=== PATIENT | male | born 1935 | race Caucasian/White ===

== ENCOUNTER 2022-10-22 08:27 | Emergency (ER) | payer MEDICARE, OTHER, SELFPAY ==
[2022-10-22] VITALS (16 sets, daily range): BP systolic 123–142; BP diastolic 84–91; PULSE 66–120; RESP 16–27; TEMP 36.2; O2SAT 87–95; BMI 23.6
--- NOTE | 2022-10-22 09:07 | XR_ITS ---
[address] [address] Patient Name: TOBIN WONG MRN: [id number] date: 1935 Sex: M Assigned Patient Location: ED.MAIN Current Patient Location: ED.MAIN Accession/Order Number: [id number] Exam Date: 10/22/2022 09:28 Report Date: 10/22/2022 09:42 At the request of: THADDEUS PETERSEN Procedure: XR chest 1V Exam: Radiographs: XR chest 1V Reason for exam: Chest pain Comparison: Chest x-ray dated 02/09/2022 IMPRESSION: Atelectasis and/or infiltrate in the left lower lung. Small left pleural effusion. Nodular opacities in the right lower lung. Recommend follow-up chest CT after treatment to exclude underlying malignancy. Pulmonary venous hypertension. Right chest wall surgical clips. Remainder unremarkable. Electronically authenticated by: JEFFERSON AGUIRRE Date: 10/22/2022 09:42
--- NOTE | 2022-10-22 09:07 | ECG_ITS ---
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
--- NOTE | 2022-10-22 09:12 | ED.GENADUL1 ---
HPI - General Adult General Chief complaint: Arrhythmia/Palpitations Stated complaint: tahycardia Time Seen by Provider: 10/22/22 09:06 Source: patient and family Mode of arrival: walk-in Limitations: no limitations Related Data Home Medications Medication Instructions Recorded Confirmed apixaban 2.5 mg tablet (Eliquis) 2.5 mg PO Q12H 10/22/22 10/22/22 aspirin 81 mg capsule 81 mg PO QDAY 10/22/22 10/22/22 ferrous sulfate 325 mg (65 mg 325 mg PO QDAY 10/22/22 10/22/22 iron) tablet (FeroSul) folic acid 1 mg tablet 1 mg PO .COMPLEX 10/22/22 10/22/22 hydralazine 50 mg tablet 50 mg PO Q12H 10/22/22 10/22/22 lisinopril 40 mg tablet 40 mg PO QDAY 10/22/22 10/22/22 methotrexate sodium 2.5 mg tablet 10 mg PO .tuesday10/22/22 10/22/22 multivitamin (Daily Multi-Vitamin 1 tab PO QAM 10/22/22 10/22/22 tablet) Allergies Allergy/AdvReac Type Severity Reaction Status Date / Time Sulfa (Sulfonamide Allergy Unknown Verified 10/22/22 09:32 Antibiotics) BACTRIM Allergy Unknown Uncoded 10/22/22 09:31 [facility] Medical History (Updated 10/22/22 @ 11:10 by Florentin Edmonds MD) Exam Constitutional: Vital Signs, click to edit/add: Vital Signs - 24 hr 10/22/22 08:41 10/22/22 08:58 10/22/22 08:39 Temperature 97.1 F L Pulse Rate 120 H Pulse Rate [Monito r] Respiratory Rate 21 27 H Blood Pressure Blood Pressure [Le ft Arm] 126/90 H Pulse Oximetry 92 L 94 L Oxygen Delivery Me thod Room Air Room Air 10/22/22 08:40 10/22/22 08:40 10/22/22 08:50 Temperature Pulse Rate 118 H 118 H 98 H Pulse Rate [Monito r] Respiratory Rate 22 23 24 Blood Pressure 126/90 H 134/91 H Blood Pressure [Le ft Arm] Pulse Oximetry 93 L 94 L 95 Oxygen Delivery Me thod 10/22/22 09:01 10/22/22 09:03 10/22/22 08:50 Temperature Pulse Rate 110 H Pulse Rate [Monito r] 97 H Respiratory Rate 17 19 Blood Pressure 134/91 H Blood Pressure [Le ft Arm] Pulse Oximetry 94 L 94 L Oxygen Delivery Me thod Room Air 10/22/22 09:00 10/22/22 09:30 10/22/22 10:03 Temperature Pulse Rate 97 H 73 76 Pulse Rate [Monito r] Respiratory Rate 21 16 22 Blood Pressure 132/88 H 142/84 H Blood Pressure [Le ft Arm] Pulse Oximetry 93 L 92 L 88 L Oxygen Delivery Me thod 10/22/22 10:10 10/22/22 10:20 10/22/22 10:30 Temperature Pulse Rate 80 78 73 Pulse Rate [Monito r] Respiratory Rate 16 18 17 Blood Pressure 123/87 H Blood Pressure [Le ft Arm] Pulse Oximetry 88 L 90 L 89 L Oxygen Delivery Me thod 10/22/22 10:30 Temperature Pulse Rate 75 Pulse Rate [Monito r] Respiratory Rate 17 Blood Pressure Blood Pressure [Le ft Arm] Pulse Oximetry 87 L Oxygen Delivery Me thod Course Vital Signs Vital signs: Vital Signs Pulse Rate 120 H 10/22/22 08:39 Respiratory Rate 27 H 10/22/22 08:39 Temperature 97.1 F L 10/22/22 08:41 Pulse Rate 75 10/22/22 10:30 Respiratory Rate 17 10/22/22 10:30 Blood Pressure 123/87 H 10/22/22 10:30 Pulse Oximetry 87 L 10/22/22 10:30 Oxygen Delivery Method Room Air 10/22/22 09:01 Medical Decision Making [facility] Narrative Medical decision making narrative: patient chest x-ray has right lower lung nodules noted. Patient was given a copy of his x-ray report and is aware to follow-up with his PCP for further imaging. Patient has a history of lymphoma, they're currently seeing Dr. Manuel for oncology for a lymphoma workup. Patient's be naturally peptide is elevated, patient's lungs are crystal clear. He has no rales, no crackles. Patient's heart rate has improved with IV fluids and the diltiazem tablet that he took this morning. Patient will follow-up with PCP as needed. Patient will go down to the [facility] specialty clinic to make an appointment with Dr. Chako with cardiology because they have not heard from their office yet for an appointment time. Patient's lab work shows no other acute abnormalities. Patient will follow-up with PCP or return. Patient was also instructed that if his heart rate is greater than 120 for more than 30 to the 60 minutes, take a extra diltiazem tablet this afternoon or evening. Patient should not take more than 2 tablets and one day. If he is continuing to take 2 tablets, he should discuss this with Dr. zamudio and his library clerical assistant. Patient and his were instructed after he takes his tablet, and the heart rate is persistent over 120, to return to the Emergency Room. Lab Data Lab results reviewed: Yes I reviewed the patient's lab results Labs: Lab Results 10/22/22 Range/Units 08:54 WBC 7.8 (4.0-11.0) 10^3/uL RBC 3.44 L (4.70-6.10) 10^6/uL Hgb 11.0 L (14.0-18.0) g/dL Hct 32.5 L (42.0-54.0) % MCV 94.5 H (80.0-94.0) fL MCH 32.0 (25.9-34.0) pg MCHC 33.8 (29.9-35.2) g/dL RDW 17.3 H (11.0-15.0) % Plt Count 227 (150-450) 10^3/uL MPV 9.6 (9.5-13.5) fL Seg Neuts % (Manual) 81.0 Band Neutrophils % 2.0 (0-5) % Lymphocytes % (Manual) 12.0 L (20.5-60.0) % Monocytes % (Manual) 5.0 (1.7-12.0) % Neutrophils # (Manual) 6.31 (1.4-6.5) 10^3/uL Band Neutrophils # 0.2 (0.0-0.3) 10^3/uL Lymphocytes # (Manual) 0.93 L (1.20-3.80) 10^3/uL Monocytes # (Manual) 0.39 (0.30-0.80) 10^3/uL Nucleated RBCs 0 Sodium 137 (136-145) mmol/L Potassium 3.6 (3.5-5.1) mmol/L Chloride 102 (98-107) mmol/L Carbon Dioxide 27.2 (21.0-32.0) mmol/L Anion Gap 11.4 BUN 15.0 (7.0-18.0) mg/dL Creatinine 1.04 (0.70-1.30) mg/dL Est GFR ( Amer) >60 (>=60) Est GFR (Non-Af Amer) >60 (>=60) BUN/Creatinine Ratio 14.4 Glucose 143 H (74-106) mg/dL Calcium 8.1 L (8.5-10.1) mg/dL Total Bilirubin 0.7 (0.2-1.0) mg/dL AST 17 (15-37) U/L ALT 17 (16-63) U/L Troponin I High Sens 21.3 (4.0-76.1) pg/mL NT-Pro-B Natriuret Pep 2849.0 H* (<=1800.0) pg/mL Total Protein 6.7 (6.4-8.2) g/dL Albumin 3.0 L (3.4-5.0) g/dL Globulin 3.7 g/dL Albumin/Globulin Ratio 0.8 Lipase 36.0 L (73.0-393.0) U/L Imaging Data chest x-ray shows no acute cardiopulmonary disease, no infiltrate, no effusion. Patient does have a right lower lung nodules, see official report.: Attestation: I have reviewed the pertinent imaging results. ECG Data Attestation: I personally reviewed and interpreted this ECG as follows: Interpretation: EKG interpretation. Irregular irregular rhythm at 100 beats a minute. Normal axis deviation. No acute ST elevation, no acute ectopy. QTC of 381. Discharge Plan Discharge Chief Complaint: Arrhythmia/Palpitations Clinical Impression: Palpitations, Atrial fibrillation Patient Disposition: Home, Self-Care Prescriptions / Home Meds: No Action Eliquis 2.5 mg tablet 2.5 mg PO Q12H ferrous sulfate [FeroSul] 325 mg (65 mg iron) tablet 325 mg PO QDAY folic acid 1 mg tablet 1 mg PO .COMPLEX Rx Instructions: 1 mg orally 6 days per week. does not takeon day of methotrexate; hydralazine 50 mg tablet 50 mg PO Q12H lisinopril 40 mg tablet 40 mg PO QDAY methotrexate sodium 2.5 mg tablet 10 mg PO .tuesday multivitamin [Daily Multi-Vitamin] Tablet 1 tab PO QAM aspirin 81 mg capsule 81 mg PO QDAY Additional Instructions: If her heart rate is greater than 120 for 30?60 minutes, and he may take one extra diltiazem tablet in the afternoon or evening. A few heart rate does not improve to less than 120 after 30?60 minutes, return to the Emergency Room for reevaluation. Do not take more than one extra tablet a day, continue taking her one tablet in the morning as prescribed. Stand Alone Forms: Portal Instructions Referrals: Jeffrey Zamudio MD [Primary Care Provider] - 1 week
[2022-10-22] MEDS: ACETAMINOPHEN 500 MG TABLET 1000 MG PO (09:39)
[2022-10-22] MEDS: 0.9 % SODIUM CHLORIDE 1,000 ML 1000 ML IV (09:40)
[2022-10-22] MEDS: ONDANSETRON PF 4 MG/2 ML VIAL IV (09:41)
[2022-10-22 09:52] LABS: Alanine Aminotransferase 17 U/L (16-63); Albumin Globulin Ratio 0.8; Alkaline Phosphatase 78 U/L (46-116); Anion Gap 11.4; Aspartate Amino Transferase 17 U/L (15-37); BUN Creatinine Ratio 14.4; Bilirubin Total 0.7 mg/dL (0.2-1.0); Calcium 8.1 mg/dL (8.5-10.1); Carbon Dioxide 27.2 mmol/L (21.0-32.0); Chloride 102 mmol/L (98-107); Estimated GFR (African America >60 (>=60); Estimated GFR (Non-African Ame >60 (>=60); Globulin 3.7 g/dL; Glucose 143 mg/dL (74-106); Potassium 3.6 mmol/L (3.5-5.1); Sodium 137 mmol/L (136-145); Total Protein 6.7 g/dL (6.4-8.2); Troponin I High Sensitivity 21.3 pg/mL (4.0-76.1)
[2022-10-22 10:11] LABS: Hematocrit 32.5 % (42.0-54.0); Mean Corpuscular HGB Conc 33.8 g/dL (29.9-35.2); Mean Corpuscular Volume 94.5 fL (80.0-94.0); Mean Platelet Volume 9.6 fL (9.5-13.5); Nucleated Red Blood Cells 0; Platelet Count 227 10^3/uL (150-450); Red Blood Count 3.44 10^6/uL (4.70-6.10); Red Cell Distribution Width 17.3 % (11.0-15.0); White Blood Count 7.8 10^3/uL (4.0-11.0)
[2022-10-22 10:43] LABS: Segmented Neut Absolute Manual 6.31 10^3/uL (1.4-6.5)
[2022-10-22 10:44] LABS: Band Neutrophils Absolute 0.2 10^3/uL (0.0-0.3); Lymphocytes Absolute Manual 0.93 10^3/uL (1.20-3.80); Monocytes Absolute Manual 0.39 10^3/uL (0.30-0.80)
--- NOTE | 2022-11-01 16:04 | MISC_ITS ---
CONSULTATION DATE: ??11/01/2022 CHIEF COMPLAINT:? Shortness of breath/dyspnea. HISTORY OF PRESENT ILLNESS:? Mr. Granados is a 87-year-old male with a past medical history including atrial fibrillation, hypertension, previous tobacco abuse, mantle cell lymphoma and metastatic melanoma. He presented to [facility] with complaints of worsening dyspnea. He was noted to be atrial fibrillation with right ventricular response, in addition to decompensated heart failure.? On admission, chest x-ray was noted to have a left lower lobe air space disease and scattered bilateral axilla densities, in addition to mild bilateral pleural effusions.? Cardiology was asked to evaluate patient by Dr. Kwong.? Today, patient states that he feels significantly improved.? He continues to be in atrial fibrillation with right ventricular response, although his rates are significantly improved.? He is currently on a Bumex drip, and he has diuresed well.? He does not appear to be fluid overloaded on examination.? CARDIOLOGY REVIEW OF SYSTEMS:? Cardiac:? Patient denies any chest pain or shortness of breath at the present time.? He denies any lower extremity edema, orthopnea, paroxysmal nocturnal dyspnea. Respiratory:? Positive for improved shortness of breath. Musculoskeletal:? Negative. Gastrointestinal:? Negative. Neurological:? Negative. All other review of systems were reviewed and are negative. PAST MEDICAL HISTORY:? 1.? Mantle cell lymphoma. 2.? Metastatic melanoma. 3.? Atrial fibrillation. 4.? Hypertension. 5.? Noted neoplasm of bladder. 6.? Tubulovillous adenoma of the colon. PAST SURGICAL HISTORY:? 1.? Appendectomy. 2.? Rotator cuff repair. 3.? TURP. 4.? Cystoscopy with transurethral prostatectomy. FAMILY HISTORY:? Noncontributory. ALLERGIES:? 1.? Bactrim. 2.? Amoxicillin. HOME MEDICATIONS:? 1.? Aspirin 81 mg daily. 2.? Eliquis 2.5 mg b.i.d. 3.? Ferrous sulfate 325 mg b.i.d. 4.? Folic acid. 5.? Hydralazine 50 mg b.i.d. 6.? Lisinopril 40 mg daily. 7.? Methotrexate sodium 2.5 mg as directed.? VITAL SIGNS:? Reviewed. PHYSICAL EXAMINATION: General:? Alert, oriented, no acute distress.? Patient is hard of hearing. Head:? Atraumatic, normocephalic. Eyes: PERRLA.? Extraocular movements intact. Neck:? Trachea midline.? No JVD. Cardiac:? S1, S2 present.? Irregularly irregular rate and rhythm.? No rubs, gallops or murmurs. Respiratory:? Diffuse crackles in bilateral lung bases. Abdomen:? Soft, non-tender, non-distended.? Extremities:? No lower extremity edema. Neuro:? No gross neurological deficits. Psych:? Appropriate mood, affect, judgment. DIAGNOSTIC TEST:? Previous echo from 10/08/2022: Conclusion: 1.? EF is mildly reduced, 45-50%. 2.? Severe bi-atrial enlargement. 3.? The right ventricle is normal systolic function. 4.? Grade 2, moderate diastolic dysfunction. 5.? Mild tricuspid regurgitation. 6.? Mildly elevated right sided pressure. 7.? Mild mitral regurgitation. ASSESSMENT/PLAN: 1.? Atrial fibrillation with right ventricular response. 2.? Heart failure with reduced ejection fraction. 3.? Pneumonia. PLAN:? 1.? Patient currently on diltiazem drip.? Would recommend weaning diltiazem and folding in oral beta wesley.? Consider starting metoprolol tartrate 25 mg b.i.d., as tolerated.? Would recommend transitioning to metoprolol succinate prior to discharge given LV dysfunction. 2.? Would recommend repeating echocardiogram to assess LV function, wall motion. 3.? Patient was started by his PCP on apixaban 2.5 mg b.i.d.? Per the limited records available to me, I do not see an indication for Eliquis 2.5 mg b.i.d., but rather Eliquis 5 mg b.i.d.? If patient does not have any significant kidney dysfunction, and if his weight is not less than 60 kg, and if there are no contraindications to bleeding, would recommend increasing dose to 5 mg b.i.d. for stroke prophylaxis.? 4.? Continue treatment of pneumonia, as this is likely underlying precipitant.? 5.? Consider outpatient ischemic evaluation once acute illness resolves.? 6.? Patient will be scheduled for outpatient Cardiology follow up after discharge. 7.? Would recommend transitioning from Bumex drip to p.o. diuretic after gauging patient?s daily diuretic requirement. 8.? If at any point patient becomes unstable, or if there is any reservation or hesitation to continue treatment at [facility], please feel free to transfer patient to [facility] for higher level care and any invasive testing that might be warranted.? Please note:? Due to new EMR, patient?s complete medical record is not available to me.? This note and assessment was performed based on minimal medical records provided to me. [facility]
== END 2022-10-22 11:24 | disposition home or self-care (01) ==
PROVIDERS: Emergency Provider Emergency Medicine; PCP Family Medicine
DX: R00.2 Palpitations (principal); I49.9 Cardiac arrhythmia, unspecified; Z79.82 Long term (current) use of aspirin; R91.8 Other nonspecific abnormal finding of lung field; C85.90 Non-Hodgkin lymphoma, unspecified, unspecified site; Z79.01 Long term (current) use of anticoagulants
CPT/HCPCS: 36415; 71045; 80053; 83690; 83880; 84484; 85007; 85025; 93005; 96374; 99285

== ENCOUNTER 2022-10-31 09:07 | Inpatient (IN) | payer MEDICARE, OTHER, SELFPAY ==
[2022-10-31] VITALS (57 sets, daily range): BP systolic 98–148; BP diastolic 71–102; PULSE 79–148; RESP 17–42; TEMP 36.2–36.5; O2SAT 85–95; BMI 23.7; BMI 24.8
--- NOTE | 2022-10-31 09:21 | ECG_ITS ---
The [facility] Test Date: 2022-10-31 Pat Name: Arun Granados Department: Room: - Gender: Male Last Sawyer: : 1935 Requested By: BATSHEVA MACIAS Order Number: [id number] Reading MD: BATSHEVA MACIAS Measurements Intervals [place] Rate: 145 P: -[id number] TN: -[id number] QRS: -21 QRSD: 84 T: 123 QT: 298 QTc: 382 Interpretive Statements 57840 Atrial fibrillation with rapid ventricular response 7202 Moderate left axis deviation 7500 Abnormal QRS-T angle 9140 abnormal rhythm ECG Compared to ECG 10/22/2022 08:52:42 Left-axis deviation now present ST (T wave) deviation no longer present Electronically Signed On 11-01-2022 6:23:05 EDT by BATSHEVA MACIAS
--- NOTE | 2022-10-31 09:21 | ED_ITS ---
HPI - SOB/Dyspnea General Chief Complaint: Shortness of Breath/Dyspnea Stated Complaint: SHORTNESS OF BREATH Time Seen by Provider: 10/31/22 09:21 History of Present Illness HPI Narrative: pt presents to the ed co dyspnea. His states at home he checked his oxygen in the last 3 days has been running between 90 and 89 but today it was lower than that so he came in for evaluation. He denies any fever, chills, or cough. Denies any runny nose, or sore throat. Has no previous history of lung disease. Does not wear oxygen at home. Has a history of atrial fibrillation. He states he is taking Cardizem. He has not seen a service dog trainer yet has an appointment for next week. Denies any history of congestive heart failure. Related Data Home Medications Medication Instructions Recorded Confirmed apixaban 2.5 mg tablet (Eliquis) 2.5 mg PO Q12H afib 10/22/22 10/31/22 aspirin 81 mg capsule 81 mg PO QDAY 10/22/22 10/31/22 ferrous sulfate 325 mg (65 mg 325 mg PO BID 10/22/22 10/31/22 iron) tablet (FeroSul) folic acid 1 mg tablet 1 mg PO .6 days week 10/22/22 10/31/22 hydralazine 50 mg tablet 50 mg PO Q12H 10/22/22 10/31/22 lisinopril 40 mg tablet 40 mg PO .evening 10/22/22 10/31/22 methotrexate sodium 2.5 mg tablet 10 mg PO .tuesday10/22/22 10/31/22 multivitamin (Daily Multi-Vitamin 1 tab PO QAM 10/22/22 10/31/22 tablet) Allergies Allergy/AdvReac Type Severity Reaction Status Date / Time Sulfa (Sulfonamide Allergy Unknown Verified 10/31/22 09:17 Antibiotics) BACTRIM Allergy Unknown Uncoded 10/31/22 09:17 Review of Systems ROS Status of ROS 10 or more systems reviewed and unremarkable except as noted in history and below [facility] Medical History (Updated 10/31/22 @ 11:34 by Cathy Stacy MD) Social History Smoking status: Former smoker Exam Narrative Exam Narrative: Nurses notes and vital signs reviewed and patient is not hypoxic. General: Nontoxic, Elderly, chronically ill, nontoxic and in no apparent distress. Skin: Warm, dry, no pallor noted. No Rash Head: Normocephalic, atraumatic. Neck: Supple, non-tender. Eye: Pupils are equal, round and EOMI. No scleral icterus. Ears, Nose, Mouth, and Throat: [place], TM clear, no posterior oropharynx erythema or nasal mucosal hypertrophy, uvula is mid-line Oral mucosa is moist Cardiovascular: Irregularly, irregular tachycardia without murmur, gallop or rub. Respiratory: No accessory muscle use or respiratory distress. Lungs diminished at bilateral bases. Chest Wall: no tenderness Back: No midline thoracic or lumbar vertebral tenderness. No CVA tenderness Musculoskeletal: normal ROM, no calf or popliteal tenderness, +2 lower extremity edema/swelling GI: Abdomen is soft, non-distended. Normal bowel sounds. No masses appreciated. No tenderness to palpation. No rebound, guarding, or rigidity noted. Neurological: A&O x4. No cranial nerve dysfunction observed. No truncal ataxia. Moves all extremities. Sensation intact. Psychiatric: Cooperative and interactive. Normal mood and affect. Constitutional Vital Signs - 24 hr 10/31/22 09:13 10/31/22 09:23 10/31/22 09:18 Temperature 97.7 F Pulse Rate 148 H Pulse Rate [Monitor] 80 Respiratory Rate 24 23 Blood Pressure Blood Pressure [Left Arm] 132/102 H Pulse Oximetry 89 L 89 L Oxygen Delivery Method Room Air Nasal Cannula Nasal Cannula Oxygen Delivery Flow Rate 3 10/31/22 09:20 10/31/22 09:30 10/31/22 09:34 Temperature Pulse Rate 133 H 124 H 126 H Pulse Rate [Monitor] Respiratory Rate 21 23 28 H Blood Pressure Blood Pressure [Left Arm] Pulse Oximetry 93 L 93 L 95 Oxygen Delivery Method Oxygen Delivery Flow Rate 10/31/22 09:35 10/31/22 09:46 10/31/22 10:01 Temperature Pulse Rate 126 H 122 H 121 H Pulse Rate [Monitor] Respiratory Rate 25 H 27 H 20 Blood Pressure 148/79 H 98/74 103/83 H Blood Pressure [Left Arm] Pulse Oximetry 93 L 93 L 94 L Oxygen Delivery Method Oxygen Delivery Flow Rate 10/31/22 10:15 10/31/22 10:31 10/31/22 10:45 Temperature Pulse Rate 90 86 93 H Pulse Rate [Monitor] Respiratory Rate 24 21 20 Blood Pressure 118/96 H 112/71 129/78 H Blood Pressure [Left Arm] Pulse Oximetry 91 L 92 L 93 L Oxygen Delivery Method Oxygen Delivery Flow Rate 10/31/22 11:01 10/31/22 11:10 10/31/22 11:15 Temperature Pulse Rate 92 H 101 H 102 H Pulse Rate [Monitor] Respiratory Rate 20 24 24 Blood Pressure Blood Pressure [Left Arm] Pulse Oximetry 92 L 92 L 92 L Oxygen Delivery Method Oxygen Delivery Flow Rate 10/31/22 11:16 10/31/22 11:16 10/31/22 11:30 Temperature Pulse Rate 85 79 80 Pulse Rate [Monitor] Respiratory Rate 18 22 18 Blood Pressure 115/80 H 115/80 H 126/79 H Blood Pressure [Left Arm] Pulse Oximetry 92 L 92 L 93 L Oxygen Delivery Method Oxygen Delivery Flow Rate 10/31/22 11:46 Temperature Pulse Rate 92 H Pulse Rate [Monitor] Respiratory Rate 20 Blood Pressure 130/84 H Blood Pressure [Left Arm] Pulse Oximetry 92 L Oxygen Delivery Method Oxygen Delivery Flow Rate Course Vital Signs Vital signs: Vital Signs Temperature 97.7 F 10/31/22 09:13 Pulse Rate 80 10/31/22 09:13 Respiratory Rate 24 10/31/22 09:13 Blood Pressure 132/102 H 10/31/22 09:13 Pulse Oximetry 89 L 10/31/22 09:13 Oxygen Delivery Method Room Air, Nasal Cannula 10/31/22 09:13 Temperature 97.7 F 10/31/22 09:13 Pulse Rate 92 H 10/31/22 11:46 Respiratory Rate 20 10/31/22 11:46 Blood Pressure 130/84 H 10/31/22 11:46 Pulse Oximetry 92 L 10/31/22 11:46 Oxygen Delivery Method Nasal Cannula 10/31/22 09:23 Oxygen Delivery Flow Rate 3 10/31/22 09:23 MDM - SOB/Dyspnea MDM Narrative Medical decision making narrative: Patient is placed on oxygen. ABG was obtained the patient is on 2 L nasal cannula and still has hypoxemia we'll increase it to 3 L nasal cannula. X-ray shows a left pleural effusion and pulmonary congestion. We will give the patient 40 mg of Lasix IV, he was given 10 mg of Cardizem for rate control his rate is now in the 90s. Patient is not on a Cardizem drip. He was covered with 1 g of Rocephin. There are no previous records of Echocardiograms in the previous computer system. This is the patient's 4th visit for similar symptoms in the patient's condition is deteriorating and he has not seen the service dog trainer as an outpatient yet. Patient was discussed with Dr. Mcclure who adv dr marshall is covering for him. The patient was discussed with Dr. marshall for admission. Differential Diagnosis Differential diagnosis: Likely congestive heart failure, asthma with exacerbation and pulmonary embolism Medical Records Attestation: I reviewed the patient's medical records. Lab Data Attestation: I reviewed the patient's lab results. Labs: Lab Results 10/31/22 10/31/22 Range/Units 09:28 11:00 WBC 15.0 H (4.0-11.0) 10^3/uL RBC 4.07 L (4.70-6.10) 10^6/uL Hgb 12.6 L (14.0-18.0) g/dL Hct 37.8 L (42.0-54.0) % MCV 92.9 (80.0-94.0) fL MCH 31.0 (25.9-34.0) pg MCHC 33.3 (29.9-35.2) g/dL RDW 19.0 H (11.0-15.0) % Plt Count 334 (150-450) 10^3/uL MPV 9.2 L (9.5-13.5) fL Neut % (Auto) 78.8 H (43.0-75.0) % Lymph % (Auto) 5.2 L (20.5-60.0) % [place] % (Auto) 7.9 (1.7-12.0) % Eos % (Auto) 0.2 L (0.9-7.0) % Baso % (Auto) 0.2 (0.2-2.0) % Neut # (Auto) 11.8 H (1.4-6.5) 10^3/uL Lymph # (Auto) 0.8 L (1.2-3.8) 10^3/uL [place] # (Auto) 1.2 H (0.3-0.8) 10^3/uL Eos # (Auto) 0.0 (0.0-0.7) 10^3/uL Baso # (Auto) 0.0 (0.0-0.1) 10^3/uL Abs Immat Gran (auto) 1.15 H (0.00-0.03) 10^3/uL Imm/Tot Granulo (auto) 7.7 H (0.0-0.5) % PT 14.6 H (9.0-11.6) sec INR 1.40 APTT 28.4 (22.3-36.2) sec Puncture Site L radial ABG pH 7.471 H (7.350-7.450) ABG pCO2 34.1 L (35.0-45.0) mmHg ABG pO2 58.8 L (80.0-100.0) mmHg ABG HCO3 24.8 (22.0-26.0) mmol/L ABG O2 Saturation 91.5 % ABG Base Excess 1.2 (-2.0-2.0) mmol/L Enrique Test Positive (POSITIVE) O2 Liters/Min 2 Sodium 132 L (136-145) mmol/L Potassium 4.3 (3.5-5.1) mmol/L Chloride 98 (98-107) mmol/L Carbon Dioxide 23.5 (21.0-32.0) mmol/L Anion Gap 14.8 BUN 19.0 H (7.0-18.0) mg/dL Creatinine 1.25 (0.70-1.30) mg/dL Est GFR ( Amer) >60 (>=60) Est GFR (Non-Af Amer) 55 L (>=60) BUN/Creatinine Ratio 15.2 Glucose 127 H (74-106) mg/dL Calcium 8.0 L (8.5-10.1) mg/dL Total Bilirubin 1.0 (0.2-1.0) mg/dL AST 17 (15-37) U/L ALT 15 L (16-63) U/L Alkaline Phosphatase 87 (46-116) U/L Troponin I High Sens 29.6 (4.0-76.1) pg/mL NT-Pro-B Natriuret Pep 7104.0 H* (<=1800.0) pg/mL Total Protein 6.9 (6.4-8.2) g/dL Albumin 2.9 L (3.4-5.0) g/dL Globulin 4.0 g/dL Albumin/Globulin Ratio 0.7 ABG Data Attestation: I personally reviewed and interpreted this ABG as follows: ECG Data Attestation: I personally reviewed and interpreted this ECG as follows: Discharge Plan Discharge Chief Complaint: Shortness of Breath/Dyspnea Clinical Impression: Congestive heart failure (CHF), Hypoxemia, Pleural effusion on left, Atrial fibrillation with RVR Patient Disposition: Admitted As Inpatient Time of Disposition Decision: 11:34 Condition: Good
--- NOTE | 2022-10-31 09:21 | XR_ITS ---
The [address] [address] Patient Name: TOBIN WONG MRN: [id number] date: 1935 Sex: M Assigned Patient Location: ER Current Patient Location: ER Accession/Order Number: [id number] Exam Date: 10/31/2022 09:55 Report Date: 10/31/2022 10:19 At the request of: МАРИНА GRIDER Procedure: XR chest 1V PROCEDURE: XR chest 1V, 10/31/2022 9:55 AM EDT CLINICAL INDICATIONS: Dyspnea, short of breath COMPARISON: 11/09/2022 TECHNIQUE: Chest upright portable chest 100 hours FINDINGS: The heart is enlarged. Mediastinum unremarkable. Mild pulmonary venous congestion is seen. Small right, moderate to large left pleural effusion is noted. Left lower lobe consolidation is seen. Multifocal indistinct nodular opacities remain throughout the chest bilaterally. Lung volumes are diminished with basilar atelectasis. No pneumothorax. Surgical clips in the right axilla are seen. Acute osseous pathology is not evident. IMPRESSION: 1. Cardiomegaly, pulmonary congestion 2. Trace right with moderate left pleural effusion increased from previous exam 3. Worsening of left mid and lower chest consolidation. Pneumonia atelectasis aspiration are all considered. Follow-up to resolution recommended 4. Multiple bilateral indistinct nodular parenchymal opacities remain. Atypical infectious inflammatory or neoplastic etiologies are all considered. CT evaluation following medical management recommended in this regard. Electronically authenticated by: JAY FELDMAN Date: 10/31/2022 10:19
--- NOTE | 2022-10-31 09:40 | PC.NURSE ---
When o2 is started and heart rate lowers his skin becomes cool and wet
[2022-10-31 09:56] LABS: Basophils Percent Auto 0.2 % (0.2-2.0); Eosinophils Percent Auto 0.2 % (0.9-7.0); Hematocrit 37.8 % (42.0-54.0); Hemoglobin 12.6 g/dL (14.0-18.0); Immature Granulocytes Abs Auto 1.15 10^3/uL (0.00-0.03); Immature Granulocytes Pct Auto 7.7 % (0.0-0.5); Lymphocytes Absolute Auto 0.8 10^3/uL (1.2-3.8); Lymphocytes Percent Auto 5.2 % (20.5-60.0); Mean Corpuscular HGB Conc 33.3 g/dL (29.9-35.2); Mean Corpuscular Volume 92.9 fL (80.0-94.0); Mean Platelet Volume 9.2 fL (9.5-13.5); Monocytes Absolute Auto 1.2 10^3/uL (0.3-0.8); Monocytes Percent Auto 7.9 % (1.7-12.0); Neutrophils Absolute Auto 11.8 10^3/uL (1.4-6.5); Neutrophils Percent Auto 78.8 % (43.0-75.0); Platelet Count 334 10^3/uL (150-450); Red Blood Count 4.07 10^6/uL (4.70-6.10)
[2022-10-31 10:15] LABS: Partial Thromboplastin Time 28.4 sec (22.3-36.2); Prothrombin Time 14.6 sec (9.0-11.6)
[2022-10-31 10:17] LABS: Alanine Aminotransferase 15 U/L (16-63); Albumin Globulin Ratio 0.7; Albumin Level 2.9 g/dL (3.4-5.0); Alkaline Phosphatase 87 U/L (46-116); Anion Gap 14.8; Aspartate Amino Transferase 17 U/L (15-37); BUN Creatinine Ratio 15.2; Carbon Dioxide 23.5 mmol/L (21.0-32.0); Chloride 98 mmol/L (98-107); Estimated GFR (African America >60 (>=60); Estimated GFR (Non-African Ame 55 (>=60); Glucose 127 mg/dL (74-106); Potassium 4.3 mmol/L (3.5-5.1); Sodium 132 mmol/L (136-145); Total Protein 6.9 g/dL (6.4-8.2); Troponin I High Sensitivity 29.6 pg/mL (4.0-76.1)
[2022-10-31] MEDS: DILTIAZEM HCL 25 MG/5 ML VIAL 10 MG IV (10:19)
[2022-10-31] MEDS: CEFTRIAXONE 1,000 MG in 0.9 % SODIUM CHLORIDE 50 ML 100 MG IV (10:56)
[2022-10-31 11:13] LABS: ABG PCO2 34.1 mmHg (35.0-45.0); PO2 ABG 58.8 mmHg (80.0-100.0); pH ABG 7.471 (7.350-7.450)
[2022-10-31 11:14] LABS: Allen Test POSITIVE (POSITIVE); Base Excess ABG 1.2 mmol/L (-2.0-2.0); HCO3 ABG 24.8 mmol/L (22.0-26.0); Liters per Minute 2; O2 Mode NASAL CANNULA; Oxygen Saturation ABG 91.5 %; Puncture Site L RADIAL
[2022-10-31] MEDS: FUROSEMIDE 20 MG/2 ML VIAL 40 MG IVP (11:47)
--- NOTE | 2022-10-31 12:16 | CA_ITS ---
Patient Name Site Name TOBIN WONG [facility] Account No Medical Record Number Age Sex Date Time [id number] [facility]:[id number] M 11/01/2022 12:26 At the Request Of Shaikh Varghese ECHOCARDIOGRAM REPORT PROCEDURE: CA ECHO DOPPLER COMPLETE INDICATIONS: CHF, elevated BNP, atrial fibrillation COMPARISON: None. DESCRIPTION: COMPLETE ECHOCARDIOGRAM Real-time transthoracic echocardiography with 2D, M-mode, spectral and color flow Doppler performed. QUALITY: Technical quality was good. LEFT VENTRICLE: Normal chamber size. Thickened septal wall. Left ventricular systolic function is difficult to assess due to rhythm but appears moderately reduced. LV EF: Moderately reduced left ventricular ejection fraction, (35-40%). DIASTOLIC: Not adequately assessed due to heart rhythm. ATRIAL SEPTUM: Visually appears intact. LEFT ATRIUM: Severe dilatation. RIGHT ATRIUM: Severe dilatation. RIGHT VENTRICLE: Normal chamber size. Normal systolic function. TRICUSPID VALVE: Normal mobility and thickness. No stenosis with mild regurgitation. Doppler studies reveal mildly (35-45) elevated right sided pressures. RVSP 41 mmHg MITRAL VALVE: Normal mobility and thickness. No evidence of mitral valve stenosis. Moderate mitral annular calcification. Mild mitral regurgitation. AORTIC VALVE: Normal trileaflet appearance. Mildly diminished mobility. Mild aortic valve stenosis. No aortic regurgitation. AORTIC ROOT: Normal diameter and appearance. PULMONIC VALVE: Normal thickness and mobility. No stenosis. No regurgitation. PERICARDIUM: Small pericardial effusion. IVC: Collapses with inspirations. PLEURA: Pleural effusion. CONCLUSION: 1. Left ventricular systolic function is difficult to assess due to rhythm but appears moderately reduced. LVEF is 35 to 40%. 2. Normal right ventricular size and systolic function. 3. Severe biatrial dilatation. 4. Mild aortic valve stenosis. 5. Mild mitral and tricuspid regurgitation. 6. Mildly elevated right-sided pressures. 7. Small pericardial effusion with large left pleural effusion. 8. A follow-up study is recommended when the patient's heart rate is better controlled for better assessment. Adult Echocardiography Procedure Report Left Ventricle LVEDD (3.7 - 5.6 cm): 4.36 cm, 4.20 cm LVESD (2.2 - 4.0 cm): 3.82 cm, 2.87 cm LVIVS thickness (0.6 - 1.2 cm): 1.43 cm LVPW thickness (0.5 - 1.0 cm): 1.01 cm LVOT Max Gradient: 4.74 mm[Hg], 1.97 mm[Hg], 3.15 mm[Hg], 5.43 mm[Hg] LVOT Area (cm2): 1.17 m/s, 0.89 m/s Peak Velocity (LVOT): 1.17 m/s, 1.09 m/s, 0.70 m/s, 0.89 m/s Mean Velocity (LVOT): 0.79 m/s LVOT Diameter 2.81 cm Left Atrium Left Atrium Systolic Dimension: 3.77 cm Mitral Valve Right Ventricle Aorta AO Root Diam: 3.67 cm Aortic Valve AoV Area ([place]): 3.47 cm2, 3.18 cm2, 2.66 cm2, 2.97 cm2, 2.31 cm2 AoV Area (VTI): 3.23 cm2, 2.93 cm2 Peak Velocity(Antegrade Flow): 2.28 m/s, 1.89 m/s Peak Gradient(Antegrade Flow): 20.76 mm[Hg], 14.31 mm[Hg] Mean Velocity(Antegrade Flow): 1.54 m/s, 1.43 m/s Mean Gradient(Antegrade Flow): 11.07 mm[Hg], 8.87 mm[Hg] Velocity Time Integral: 31.96 cm, 25.93 cm Tricuspid Valve Peak Velocity (Regurgitant Flow): 3.69 m/s, 3.09 m/s, 3.51 m/s Pulmonic Valve Peak Velocity: 1.15 m/s Peak Gradient: 3.93 mm[Hg], 4.74 mm[Hg], 8.82 mm[Hg], 4.45 mm[Hg], 5.21 mm[Hg] Right Atrium Dictated by: Elpidio Kennedy M.D. on 11/02/2022 at 18:18 Approved by: Elpidio Kennedy M.D. on 11/02/2022 at 18:23
[2022-10-31] MEDS: HYDRALAZINE HCL 50 MG TABLET PO (15:00)
[2022-10-31] MEDS: APIXABAN 5 MG TABLET 2.5 MG PO ×2 (15:01→21:35)
--- NOTE | 2022-10-31 20:01 | RESP.RT ---
increased to 4L
[2022-10-31 21:24] LABS: Magnesium 2.2 mg/dL (1.8-2.4)
[2022-10-31] MEDS: DIGOXIN 500 MCG/2 ML AMPUL IV (21:34)
[2022-10-31] MEDS: ACETAMINOPHEN 500 MG TABLET 1000 MG PO (21:35)
[2022-11-01] VITALS (49 sets, daily range): BP systolic 95–152; BP diastolic 52–106; PULSE 72–144; RESP 13–34; TEMP 36.2–36.8; O2SAT 80–96; BMI 24.8
[2022-11-01 05:03] LABS: Basophils Percent Auto 0.2 % (0.2-2.0); Eosinophils Absolute Auto 0.1 10^3/uL (0.0-0.7); Eosinophils Percent Auto 0.7 % (0.9-7.0); Hematocrit 35.6 % (42.0-54.0); Immature Granulocytes Abs Auto 0.66 10^3/uL (0.00-0.03); Immature Granulocytes Pct Auto 6.3 % (0.0-0.5); Lymphocytes Absolute Auto 0.9 10^3/uL (1.2-3.8); Lymphocytes Percent Auto 8.6 % (20.5-60.0); Mean Corpuscular HGB Conc 33.7 g/dL (29.9-35.2); Mean Corpuscular Hemoglobin 31.5 pg (25.9-34.0); Mean Corpuscular Volume 93.4 fL (80.0-94.0); Mean Platelet Volume 9.1 fL (9.5-13.5); Monocytes Absolute Auto 0.8 10^3/uL (0.3-0.8); Monocytes Percent Auto 7.1 % (1.7-12.0); Neutrophils Absolute Auto 8.1 10^3/uL (1.4-6.5); Neutrophils Percent Auto 77.1 % (43.0-75.0); Platelet Count 262 10^3/uL (150-450); Red Blood Count 3.81 10^6/uL (4.70-6.10); Red Cell Distribution Width 18.8 % (11.0-15.0); White Blood Count 10.6 10^3/uL (4.0-11.0)
[2022-11-01] MEDS: DIGOXIN 500 MCG/2 ML AMPUL 250 MCG IV ×2 (05:05→09:19)
[2022-11-01 05:23] LABS: Alanine Aminotransferase 11 U/L (16-63); Albumin Globulin Ratio 0.7; Albumin Level 2.5 g/dL (3.4-5.0); Alkaline Phosphatase 74 U/L (46-116); Anion Gap 10.5; Aspartate Amino Transferase 18 U/L (15-37); BUN Creatinine Ratio 18.6; Bilirubin Total 0.8 mg/dL (0.2-1.0); Calcium 7.7 mg/dL (8.5-10.1); Carbon Dioxide 28.6 mmol/L (21.0-32.0); Chloride 100 mmol/L (98-107); Estimated GFR (African America >60 (>=60); Estimated GFR (Non-African Ame >60 (>=60); Globulin 3.6 g/dL; Glucose 115 mg/dL (74-106); Magnesium 2.1 mg/dL (1.8-2.4); Potassium 4.1 mmol/L (3.5-5.1); Sodium 135 mmol/L (136-145); Total Protein 6.1 g/dL (6.4-8.2)
--- NOTE | 2022-11-01 07:00 | XR_ITS ---
The [address] [address] Patient Name: TOBIN WONG MRN: [id number] date: 1935 Sex: M Assigned Patient Location: ICU Current Patient Location: ICU Accession/Order Number: [id number] Exam Date: 11/01/2022 05:14 Report Date: 11/01/2022 05:35 At the request of: SHAIKH DAVE Procedure: XR chest 2V EXAM: XR chest 2V 11/01/2022 5:14 AM EDT OH001 CLINICAL STATEMENT: SOB COMPARISON: 10/31/2022 TECHNIQUE: Single AP radiograph of the chest is submitted. FINDINGS: There is left lower lobe airspace disease. Scattered bilateral nodular densities. Enlarged cardiac silhouette. Mild bilateral pleural effusions. No pneumothorax. The bony elements are unremarkable. IMPRESSION: Left lower lobe airspace disease. Scattered bilateral nodular densities. Enlarged cardiac silhouette. Mild bilateral pleural effusions. Electronically authenticated by: AUBRIE DELUCA Date: 11/01/2022 05:35
--- NOTE | 2022-11-01 07:26 | P.HP_ITS ---
H&P: HPI History of Present Illness Chief complaint: SHORTNESS OF BREATH Narrative: Patient presented to the emergency with increasing shortness of breath. In ER found to have left lower lobe infiltrate and left pleural effusion with cardiomegaly, A-fib with rapid ventricular response [facility] Medical History (Updated 11/01/22 @ 07:33 by Jeffrey Mcclure MD) Surgical History (Updated 10/31/22 @ 14:16 by Na Le) Family History (Updated 10/31/22 @ 14:17 by Na Le) Father Family history of stroke Social History (Updated 10/31/22 @ 14:18 by Na Le) Within the past year, how often did you have a drink containing alcohol: never Within the past year, how often did you have six or more drinks on one occasion: never Score interpretation: A score less than 4 is consistent with normal alcohol consumption. Smoking status: Former smoker Non-prescribed substance use: denies use Previous occupational history: factory Known occupational exposures/hazards: No Highest level of school completed/degree received: high school graduate Meds Home Medications and Allergies Home Medications Medication Instructions Recorded Confirmed Type apixaban 2.5 mg tablet (Eliquis) 2.5 mg PO Q12H afib 10/22/22 10/31/22 History aspirin 81 mg capsule 81 mg PO QDAY 10/22/22 10/31/22 History ferrous sulfate 325 mg (65 mg 325 mg PO BID 10/22/22 10/31/22 History iron) tablet (FeroSul) folic acid 1 mg tablet 1 mg PO .6 days week 10/22/22 10/31/22 History hydralazine 50 mg tablet 50 mg PO Q12H 10/22/22 10/31/22 History lisinopril 40 mg tablet 40 mg PO .evening 10/22/22 10/31/22 History methotrexate sodium 2.5 mg tablet 10 mg PO .tuesday10/22/22 10/31/22 History multivitamin (Daily Multi-Vitamin 1 tab PO QAM 10/22/22 10/31/22 History tablet) Allergies Allergy/AdvReac Type Severity Reaction Status Date / Time Sulfa (Sulfonamide Allergy Unknown Verified 10/31/22 09:17 Antibiotics) BACTRIM Allergy Unknown Uncoded 10/31/22 09:17 Exam Constitutional Vital Signs - 24 hr 10/31/22 09:13 10/31/22 09:23 10/31/22 09:18 Temperature 97.7 F Pulse Rate 148 H Pulse Rate [Monitor] 80 Respiratory Rate 24 23 Blood Pressure Blood Pressure [Left Arm] 132/102 H Pulse Oximetry 89 L 89 L Oxygen Delivery Method Room Air Nasal Cannula Nasal Cannula Oxygen Delivery Flow Rate 3 10/31/22 09:20 10/31/22 09:30 10/31/22 09:34 Temperature Pulse Rate 133 H 124 H 126 H Pulse Rate [Monitor] Respiratory Rate 21 23 28 H Blood Pressure Blood Pressure [Left Arm] Pulse Oximetry 93 L 93 L 95 Oxygen Delivery Method Oxygen Delivery Flow Rate 10/31/22 09:35 10/31/22 09:46 10/31/22 10:01 Temperature Pulse Rate 126 H 122 H 121 H Pulse Rate [Monitor] Respiratory Rate 25 H 27 H 20 Blood Pressure 148/79 H 98/74 103/83 H Blood Pressure [Left Arm] Pulse Oximetry 93 L 93 L 94 L Oxygen Delivery Method Oxygen Delivery Flow Rate 10/31/22 10:15 10/31/22 10:31 10/31/22 10:45 Temperature Pulse Rate 90 86 93 H Pulse Rate [Monitor] Respiratory Rate 24 21 20 Blood Pressure 118/96 H 112/71 129/78 H Blood Pressure [Left Arm] Pulse Oximetry 91 L 92 L 93 L Oxygen Delivery Method Oxygen Delivery Flow Rate 10/31/22 11:01 10/31/22 11:10 10/31/22 11:15 Temperature Pulse Rate 92 H 101 H 102 H Pulse Rate [Monitor] Respiratory Rate 20 24 24 Blood Pressure Blood Pressure [Left Arm] Pulse Oximetry 92 L 92 L 92 L Oxygen Delivery Method Oxygen Delivery Flow Rate 10/31/22 11:16 10/31/22 11:16 10/31/22 11:30 Temperature Pulse Rate 85 79 80 Pulse Rate [Monitor] Respiratory Rate 18 22 18 Blood Pressure 115/80 H 115/80 H 126/79 H Blood Pressure [Left Arm] Pulse Oximetry 92 L 92 L 93 L Oxygen Delivery Method Oxygen Delivery Flow Rate 10/31/22 11:46 10/31/22 11:46 10/31/22 12:01 Temperature Pulse Rate 92 H 93 H 102 H Pulse Rate [Monitor] Respiratory Rate 20 22 23 Blood Pressure 130/84 H 130/84 H 131/85 H Blood Pressure [Left Arm] Pulse Oximetry 92 L 92 L 92 L Oxygen Delivery Method Oxygen Delivery Flow Rate 10/31/22 12:17 10/31/22 12:20 10/31/22 12:30 Temperature Pulse Rate 109 H 102 H 101 H Pulse Rate [Monitor] Respiratory Rate 42 H 22 19 Blood Pressure Blood Pressure [Left Arm] Pulse Oximetry 89 L 85 L 93 L Oxygen Delivery Method Oxygen Delivery Flow Rate 10/31/22 12:31 10/31/22 12:46 10/31/22 13:01 Temperature Pulse Rate 99 H Pulse Rate [Monitor] Respiratory Rate 17 Blood Pressure 135/101 H 128/91 H 135/90 H Blood Pressure [Left Arm] Pulse Oximetry 92 L 92 L 93 L Oxygen Delivery Method Oxygen Delivery Flow Rate 10/31/22 13:16 10/31/22 13:47 10/31/22 13:54 Temperature Pulse Rate Pulse Rate [Monitor] 90 96 H Respiratory Rate 20 18 Blood Pressure 138/85 H Blood Pressure [Left Arm] Pulse Oximetry 93 L 95 92 L Oxygen Delivery Method Nasal Cannula Nasal Cannula Oxygen Delivery Flow Rate 2 3 10/31/22 13:41 10/31/22 13:42 10/31/22 13:42 Temperature Pulse Rate 104 H Pulse Rate [Monitor] Respiratory Rate 21 Blood Pressure 130/81 H Blood Pressure [Left Arm] Pulse Oximetry 90 L 92 L 89 L Oxygen Delivery Method Oxygen Delivery Flow Rate 10/31/22 14:03 10/31/22 15:00 10/31/22 15:05 Temperature Pulse Rate 104 H 110 H Pulse Rate [Monitor] Respiratory Rate Blood Pressure 130/81 H Blood Pressure [Left Arm] Pulse Oximetry Oxygen Delivery Method Oxygen Delivery Flow Rate 10/31/22 15:55 10/31/22 16:28 10/31/22 16:33 Temperature Pulse Rate 108 H Pulse Rate [Monitor] 110 H Respiratory Rate 18 Blood Pressure Blood Pressure [Left Arm] Pulse Oximetry 90 L Oxygen Delivery Method Nasal Cannula Oxygen Delivery Flow Rate 2 10/31/22 13:42 10/31/22 18:08 10/31/22 19:46 Temperature Pulse Rate 121 H 120 H Pulse Rate [Monitor] Respiratory Rate 22 Blood Pressure 130/81 H Blood Pressure [Left Arm] Pulse Oximetry 91 L 88 L Oxygen Delivery Method Nasal Cannula Oxygen Delivery Flow Rate 2 10/31/22 20:02 10/31/22 19:45 10/31/22 13:42 Temperature Pulse Rate 117 H Pulse Rate [Monitor] 120 H Respiratory Rate 18 22 Blood Pressure 130/81 H Blood Pressure [Left Arm] Pulse Oximetry 90 L 90 L Oxygen Delivery Method Nasal Cannula Oxygen Delivery Flow Rate 4 10/31/22 19:57 10/31/22 21:34 11/01/22 00:40 Temperature 97.2 F L Pulse Rate 121 H 120 H Pulse Rate [Monitor] 96 H Respiratory Rate 22 18 16 Blood Pressure 104/80 H Blood Pressure [Left Arm] Pulse Oximetry 91 L 91 L Oxygen Delivery Method Nasal Cannula Oxygen Delivery Flow Rate 4 10/31/22 19:57 10/31/22 20:53 10/31/22 21:46 Temperature Pulse Rate 110 H 126 H 133 H Pulse Rate [Monitor] Respiratory Rate 27 H 27 H 21 Blood Pressure 104/80 H 103/83 H 118/89 H Blood Pressure [Left Arm] Pulse Oximetry 91 L 92 L 92 L Oxygen Delivery Method Oxygen Delivery Flow Rate 10/31/22 22:03 10/31/22 22:10 10/31/22 22:20 Temperature Pulse Rate 122 H 117 H 123 H Pulse Rate [Monitor] Respiratory Rate 24 37 H 40 H Blood Pressure Blood Pressure [Left Arm] Pulse Oximetry 92 L 92 L 89 L Oxygen Delivery Method Oxygen Delivery Flow Rate 10/31/22 22:30 10/31/22 22:40 10/31/22 22:50 Temperature Pulse Rate 113 H 114 H 107 H Pulse Rate [Monitor] Respiratory Rate 27 H 26 H 32 H Blood Pressure Blood Pressure [Left Arm] Pulse Oximetry 89 L 89 L 90 L Oxygen Delivery Method Oxygen Delivery Flow Rate 10/31/22 23:00 10/31/22 23:10 10/31/22 23:20 Temperature Pulse Rate 96 H 100 H 92 H Pulse Rate [Monitor] Respiratory Rate 20 29 H 33 H Blood Pressure Blood Pressure [Left Arm] Pulse Oximetry 90 L 91 L 91 L Oxygen Delivery Method Oxygen Delivery Flow Rate 10/31/22 23:30 10/31/22 23:40 10/31/22 23:50 Temperature Pulse Rate 99 H 99 H 105 H Pulse Rate [Monitor] Respiratory Rate 26 H 30 H 30 H Blood Pressure Blood Pressure [Left Arm] Pulse Oximetry 92 L 91 L 91 L Oxygen Delivery Method Oxygen Delivery Flow Rate 11/01/22 00:00 11/01/22 00:10 11/01/22 00:20 Temperature Pulse Rate 90 93 H 94 H Pulse Rate [Monitor] Respiratory Rate 34 H 23 29 H Blood Pressure Blood Pressure [Left Arm] Pulse Oximetry 92 L 92 L 93 L Oxygen Delivery Method Oxygen Delivery Flow Rate 11/01/22 00:30 11/01/22 00:40 11/01/22 00:50 Temperature Pulse Rate 109 H 94 H 113 H Pulse Rate [Monitor] Respiratory Rate 28 H 26 H 19 Blood Pressure Blood Pressure [Left Arm] Pulse Oximetry 93 L 92 L 89 L Oxygen Delivery Method Oxygen Delivery Flow Rate 11/01/22 00:55 11/01/22 00:55 11/01/22 04:00 Temperature 97.2 F L Pulse Rate 94 H 107 H 103 H Pulse Rate [Monitor] Respiratory Rate 19 21 16 Blood Pressure 109/81 H Blood Pressure [Left Arm] 110/52 L Pulse Oximetry 80 L 91 L 96 Oxygen Delivery Method Nasal Cannula Oxygen Delivery Flow Rate 4 2 11/01/22 00:55 11/01/22 05:05 Temperature Pulse Rate 106 H 100 H Pulse Rate [Monitor] Respiratory Rate 29 H 16 Blood Pressure 109/81 H Blood Pressure [Left Arm] Pulse Oximetry 94 L 94 L Oxygen Delivery Method Oxygen Delivery Flow Rate HENMT Common normals: moist oral mucous membranes Chest Common normals: inspection of chest normal Respiratory Common normals: normal respiratory effort and no use of accessory muscles Auscultation: rhonchi (with egophony) left lower and egophony left lower Cardio Common normals: irregular rate and irregular rhythm Rate: tachycardic; abnormal rate GI Common normals: Normal to inspection, nondistended, normoactive bowel sounds present, soft to palpation, non-tender and no hepatosplenomegaly Extremity General: edema (2-3 Plus) Neuro Common normals: oriented x3 and CN's II-XII intact bilaterally Results Labs Labs: Short CBC 10/31/22 11/01/22 Range/Units 09:28 03:55 WBC 15.0 H 10.6 (4.0-11.0) 10^3/uL Hgb 12.6 L 12.0 L (14.0-18.0) g/dL Hct 37.8 L 35.6 L (42.0-54.0) % Plt Count 334 262 (150-450) 10^3/uL BMP 10/31/22 11/01/22 09:28 03:55 Sodium 132 L 135 L Potassium 4.3 4.1 Chloride 98 100 Carbon Dioxide 23.5 28.6 BUN 19.0 H 19.0 H Creatinine 1.25 1.02 Glucose 127 H 115 H Calcium 8.0 L 7.7 L Liver Function 10/31/22 11/01/22 Range/Units 09:28 03:55 Total Bilirubin 1.0 0.8 (0.2-1.0) mg/dL AST 17 18 (15-37) U/L ALT 15 L 11 L (16-63) U/L Alkaline Phosphatase 87 74 (46-116) U/L Albumin 2.9 L 2.5 L (3.4-5.0) g/dL ABG ABG results: 10/31/22 11:00 ABG pH 7.471 H ABG pCO2 34.1 L ABG pO2 58.8 L ABG HCO3 24.8 ABG O2 Saturation 91.5 ABG Base Excess 1.2 Assessment and Plan Assessment and Plan (1) Congestive heart failure (CHF): (2) Hypoxemia: (3) Pleural effusion on left: (4) Atrial fibrillation with RVR: (5) Palpitations: (6) HTN (hypertension): (7) Iron deficiency anemia: (8) Left lower lobe pneumonia: (9) Moderate protein malnutrition: (10) Hypocalcemia: Plan palpitations, respiratory distress, acute hypxia, hypotension, leukocytosis secondary to acute exacerbation of chronic atrial fibrillation secondary to LLL pneumonia and resulting in acute combined congestive heart failure - Consult to cardiology, he had a visit coming up this week Acute combined congestive heart failure With cardiomegaly-check echo, check Lanoxin level, Bumex drip today. Consult to cardiology Left lower lobe pneumonia-add levofloxacin, continue Rocephin, change aerosols to routine, check sputum culture, leukocytosis improving Left pleural effusion-complication of the above-improving that should improve the effusion, repeat chest x-ray serially Hyponatremia-complicating the above but improved today, continue to monitor Moderate protein calorie malnutrition-add Ensure Hypocalcemia-supplement Unable to improve symptoms over the first 12 hours patient will be here 2 midnights for continuous medical management-Keep patient inpatient status
[2022-11-01 07:35] LABS: Digoxin 1.2 ng/mL (0.9-2.0)
[2022-11-01] MEDS: LISINOPRIL 20 MG TABLET 40 MG PO (08:40)
[2022-11-01] MEDS: 0.9 % SODIUM CHLORIDE 250 ML 10.417 ML IV (08:40)
[2022-11-01] MEDS: APIXABAN 5 MG TABLET 2.5 MG PO ×2 (08:40→20:28)
[2022-11-01] MEDS: CEFTRIAXONE 1,000 MG in 0.9 % SODIUM CHLORIDE 50 ML 50 MG IV (08:40)
[2022-11-01] MEDS: MULTIVITAMIN TABLET 400 TAB PO (08:40)
[2022-11-01] MEDS: ASPIRIN 81 MG TAB.CHEW PO (08:41)
[2022-11-01] MEDS: FERROUS SULFATE 325 MG TABLET PO ×2 (08:41→20:28)
[2022-11-01] MEDS: BUMETANIDE 10 MG in 0.9 % SODIUM CHLORIDE 160 ML 20 MG IV (09:05)
[2022-11-01] MEDS: LEVOFLOXACIN IN DEXTROSE 5 % 750 MG/150 ML IV.SOLN 100 MG IV (09:19)
[2022-11-01 10:31] LABS: SARS-CoV-2 Ag reflex to NAA Negative (NEGATIVE)
[2022-11-01] MEDS: dilTIAZem HCL 125 MG in 0.9 % SODIUM CHLORIDE 100 ML 10 MG IV (14:26)
[2022-11-01] MEDS: DILTIAZEM HCL 25 MG/5 ML VIAL 10 MG IV (14:33)
[2022-11-01 15:22] LABS: SARS-CoV-2 NAA NOT DETECTED (NOT DETECTE)
--- NOTE | 2022-11-01 15:28 | SWNOTE1 ---
SW met with pt to discuss dc needs, pt's in room as well. Pt lives with at home. Pt voiced he does not use any DME at home to ambulate. Pt and explained that pt sleeps downstairs where it is cooler. He has a bathroom and hospital bed downstairs. Pt and did not voice any discharge needs at this time. No HH currently. He is on 2 liters oxygen here, but no O2 at home. SW reviewed IMM form with pt and . Pt's voiced understanding and stated she will explain it to him later. Pt signed form, copy placed in chart and original given to pt.
[2022-11-01] MEDS: IPRATROPIUM/ALBUTEROL SULFATE 3 ML AMPUL.NEB IH ×2 (16:26→22:48)
--- NOTE | 2022-11-01 19:29 | ECG_ITS ---
The [facility] Test Date: 2022-11-01 Pat Name: TOBIN WONG Department: Room: [facility] Gender: Male Vascular Physician: : [id number] Requested By: BATSHEVA MACIAS Order Number: [id number] Reading MD: BATSHEVA MACIAS Measurements Intervals [place] Rate: 90 P: -[id number] MI: -[id number] QRS: 3 QRSD: 90 T: 214 QT: 312 QTc: 359 Interpretive Statements 1210 Atrial fibrillation [address] depression, probably digitalis effect 59973 Twave abnormality, possible lateral ischemia or digitalis effect 8305 Short QTc interval 9150 abnormal ECG Compared to ECG 10/31/2022 09:19:07 ST (T wave) deviation now present Possible ischemia now present Left-axis deviation no longer present Electronically Signed On 11-02-2022 6:34:28 EDT by BATSHEVA MACIAS
[2022-11-01 20:06] LABS: Troponin I High Sensitivity 63.8 pg/mL (4.0-76.1)
[2022-11-01] MEDS: ACETAMINOPHEN 500 MG TABLET 1000 MG PO (20:29)
[2022-11-01] MEDS: DILTIAZEM HCL 60 MG TABLET PO (21:19)
[2022-11-02] VITALS (76 sets, daily range): BP systolic 112–148; BP diastolic 71–95; PULSE 56–128; RESP 12–32; TEMP 36.6–36.8; O2SAT 82–97
[2022-11-02] MEDS: IPRATROPIUM/ALBUTEROL SULFATE 3 ML AMPUL.NEB IH ×4 (04:06→23:20)
[2022-11-02 05:10] LABS: Basophils Percent Auto 0.2 % (0.2-2.0); Eosinophils Percent Auto 0.3 % (0.9-7.0); Hematocrit 33.5 % (42.0-54.0); Hemoglobin 11.3 g/dL (14.0-18.0); Immature Granulocytes Abs Auto 0.67 10^3/uL (0.00-0.03); Immature Granulocytes Pct Auto 6.9 % (0.0-0.5); Lymphocytes Absolute Auto 0.9 10^3/uL (1.2-3.8); Mean Corpuscular HGB Conc 33.7 g/dL (29.9-35.2); Mean Corpuscular Hemoglobin 31.1 pg (25.9-34.0); Mean Corpuscular Volume 92.3 fL (80.0-94.0); Monocytes Absolute Auto 0.5 10^3/uL (0.3-0.8); Monocytes Percent Auto 5.6 % (1.7-12.0); Neutrophils Absolute Auto 7.6 10^3/uL (1.4-6.5); Platelet Count 246 10^3/uL (150-450); Red Blood Count 3.63 10^6/uL (4.70-6.10); Red Cell Distribution Width 18.4 % (11.0-15.0); White Blood Count 9.7 10^3/uL (4.0-11.0)
[2022-11-02 05:43] LABS: Alanine Aminotransferase 14 U/L (16-63); Albumin Globulin Ratio 0.8; Albumin Level 2.6 g/dL (3.4-5.0); Alkaline Phosphatase 72 U/L (46-116); Anion Gap 10.1; Aspartate Amino Transferase 16 U/L (15-37); BUN Creatinine Ratio 17.1; Bilirubin Total 0.9 mg/dL (0.2-1.0); Calcium 7.6 mg/dL (8.5-10.1); Carbon Dioxide 30.8 mmol/L (21.0-32.0); Chloride 98 mmol/L (98-107); Estimated GFR (African America >60 (>=60); Estimated GFR (Non-African Ame >60 (>=60); Globulin 3.2 g/dL; Glucose 119 mg/dL (74-106); Magnesium 1.8 mg/dL (1.8-2.4); Potassium 3.9 mmol/L (3.5-5.1); Sodium 135 mmol/L (136-145); Total Protein 5.8 g/dL (6.4-8.2)
[2022-11-02 05:44] LABS: Troponin I High Sensitivity 72.3 pg/mL (4.0-76.1)
[2022-11-02] MEDS: DILTIAZEM HCL 60 MG TABLET PO (05:59)
--- NOTE | 2022-11-02 08:03 | P.PN_ITS ---
Progress Note: Subjective Subjective Interval history: Overall feels much better Exam Constitutional Vital Signs - 24 hr 11/01/22 08:11 11/01/22 09:19 11/01/22 10:45 Temperature 98.0 F Pulse Rate 114 H 120 H Pulse Rate [Monitor] Pulse Rate [Right Dorsalis Pedis] Respiratory Rate 18 Blood Pressure Blood Pressure [Left Arm] 136/91 H Pulse Oximetry 91 L 93 L Oxygen Delivery Method Room Air Nasal Cannula Oxygen Delivery Flow Rate 2 11/01/22 11:35 11/01/22 11:37 11/01/22 15:00 Temperature 97.9 F Pulse Rate 114 H Pulse Rate [Monitor] 107 H Pulse Rate [Right Dorsalis Pedis] Respiratory Rate 20 20 15 Blood Pressure Blood Pressure [Left Arm] 131/82 H Pulse Oximetry 92 L Oxygen Delivery Method Nasal Cannula Oxygen Delivery Flow Rate 2 11/01/22 15:00 11/01/22 16:37 11/02/22 00:00 Temperature 98.2 F Pulse Rate 110 H Pulse Rate [Monitor] 87 Pulse Rate [Right Dorsalis Pedis] Respiratory Rate 15 22 Blood Pressure Blood Pressure [Left Arm] 133/99 H Pulse Oximetry 92 L 90 L Oxygen Delivery Method Nasal Cannula Nasal Cannula Oxygen Delivery Flow Rate 2 11/02/22 00:00 11/02/22 04:00 11/02/22 04:00 Temperature 97.8 F Pulse Rate 92 H 87 Pulse Rate [Monitor] 87 Pulse Rate [Right Dorsalis Pedis] Respiratory Rate 17 18 Blood Pressure Blood Pressure [Left Arm] 146/78 H 130/74 H Pulse Oximetry 91 L 91 L Oxygen Delivery Method Nasal Cannula Nasal Cannula Oxygen Delivery Flow Rate 2 11/01/22 08:09 11/01/22 11:32 11/01/22 14:31 Temperature Pulse Rate 144 H 129 H 117 H Pulse Rate [Monitor] Pulse Rate [Right Dorsalis Pedis] Respiratory Rate Blood Pressure 136/91 H 131/82 H 133/99 H Blood Pressure [Left Arm] Pulse Oximetry 91 L 93 L Oxygen Delivery Method Oxygen Delivery Flow Rate 11/01/22 17:16 11/01/22 17:31 11/01/22 17:45 Temperature Pulse Rate 134 H 116 H 99 H Pulse Rate [Monitor] Pulse Rate [Right Dorsalis Pedis] Respiratory Rate Blood Pressure 124/69 H 135/106 H 107/85 H Blood Pressure [Left Arm] Pulse Oximetry 90 L 91 L 83 L Oxygen Delivery Method Oxygen Delivery Flow Rate 11/01/22 18:01 11/01/22 18:15 11/01/22 18:30 Temperature Pulse Rate 103 H 105 H 115 H Pulse Rate [Monitor] Pulse Rate [Right Dorsalis Pedis] Respiratory Rate Blood Pressure 123/68 H 121/71 H 129/80 H Blood Pressure [Left Arm] Pulse Oximetry 96 90 L 88 L Oxygen Delivery Method Oxygen Delivery Flow Rate 11/01/22 18:45 11/01/22 19:01 11/01/22 19:15 Temperature Pulse Rate 89 99 H 100 H Pulse Rate [Monitor] Pulse Rate [Right Dorsalis Pedis] Respiratory Rate 27 H Blood Pressure 134/71 H 152/96 H 131/81 H Blood Pressure [Left Arm] Pulse Oximetry 89 L 90 L 90 L Oxygen Delivery Method Oxygen Delivery Flow Rate 11/01/22 19:30 11/01/22 19:45 11/01/22 20:01 Temperature Pulse Rate 90 100 H 87 Pulse Rate [Monitor] Pulse Rate [Right Dorsalis Pedis] Respiratory Rate 22 25 H 18 Blood Pressure 140/84 H 118/88 H 131/69 H Blood Pressure [Left Arm] Pulse Oximetry 89 L 89 L 90 L Oxygen Delivery Method Oxygen Delivery Flow Rate 11/01/22 20:16 11/01/22 20:37 11/01/22 20:40 Temperature 98 F Pulse Rate 83 85 Pulse Rate [Monitor] 87 Pulse Rate [Right Dorsalis Pedis] Respiratory Rate 20 20 20 Blood Pressure 95/82 H Blood Pressure [Left Arm] 125/74 H Pulse Oximetry 90 L 92 L Oxygen Delivery Method Nasal Cannula Oxygen Delivery Flow Rate 11/01/22 21:19 11/01/22 20:16 11/01/22 20:31 Temperature Pulse Rate 83 91 H Pulse Rate [Monitor] Pulse Rate [Right Dorsalis Pedis] Respiratory Rate 22 23 Blood Pressure 121/84 H 95/82 H 125/74 H Blood Pressure [Left Arm] Pulse Oximetry 90 L 91 L Oxygen Delivery Method Oxygen Delivery Flow Rate 11/01/22 20:46 11/01/22 21:02 11/01/22 21:16 Temperature Pulse Rate 113 H 103 H 86 Pulse Rate [Monitor] Pulse Rate [Right Dorsalis Pedis] Respiratory Rate 27 H 20 20 Blood Pressure 122/69 H 138/76 H 121/84 H Blood Pressure [Left Arm] Pulse Oximetry 88 L 89 L 90 L Oxygen Delivery Method Oxygen Delivery Flow Rate 11/01/22 21:30 11/01/22 21:45 11/01/22 22:00 Temperature Pulse Rate 88 72 86 Pulse Rate [Monitor] Pulse Rate [Right Dorsalis Pedis] Respiratory Rate 18 19 30 H Blood Pressure 121/77 H 127/71 H 132/81 H Blood Pressure [Left Arm] Pulse Oximetry 91 L 88 L 90 L Oxygen Delivery Method Oxygen Delivery Flow Rate 11/01/22 22:15 11/01/22 22:30 11/01/22 22:48 Temperature Pulse Rate 76 81 Pulse Rate [Monitor] Pulse Rate [Right Dorsalis Pedis] Respiratory Rate 22 19 Blood Pressure 118/71 114/82 H Blood Pressure [Left Arm] Pulse Oximetry 90 L 90 L 90 L Oxygen Delivery Method Nasal Cannula Oxygen Delivery Flow Rate 2 11/01/22 23:04 11/01/22 22:48 11/01/22 22:30 Temperature Pulse Rate 87 88 78 Pulse Rate [Monitor] Pulse Rate [Right Dorsalis Pedis] Respiratory Rate 22 24 20 Blood Pressure 114/82 H Blood Pressure [Left Arm] Pulse Oximetry 91 L 90 L 89 L Oxygen Delivery Method Room Air Nasal Cannula Oxygen Delivery Flow Rate 2 2 11/01/22 22:45 11/01/22 22:54 11/01/22 23:00 Temperature Pulse Rate 79 72 85 Pulse Rate [Monitor] Pulse Rate [Right Dorsalis Pedis] Respiratory Rate 13 25 H 14 Blood Pressure 117/68 120/70 H 124/81 H Blood Pressure [Left Arm] Pulse Oximetry 90 L 93 L 91 L Oxygen Delivery Method Oxygen Delivery Flow Rate 11/01/22 23:00 11/02/22 00:00 11/02/22 01:01 Temperature Pulse Rate 83 71 72 Pulse Rate [Monitor] Pulse Rate [Right Dorsalis Pedis] Respiratory Rate 21 26 H 19 Blood Pressure 124/81 H 146/78 H 126/76 H Blood Pressure [Left Arm] Pulse Oximetry 90 L 92 L 93 L Oxygen Delivery Method Oxygen Delivery Flow Rate 11/02/22 02:00 11/02/22 03:00 11/02/22 04:06 Temperature Pulse Rate 76 73 84 Pulse Rate [Monitor] Pulse Rate [Right Dorsalis Pedis] Respiratory Rate 18 17 20 Blood Pressure 119/74 129/71 H Blood Pressure [Left Arm] Pulse Oximetry 91 L 91 L 92 L Oxygen Delivery Method Nasal Cannula Oxygen Delivery Flow Rate 2 11/02/22 04:21 11/02/22 05:59 11/02/22 03:00 Temperature Pulse Rate 95 H 74 Pulse Rate [Monitor] Pulse Rate [Right Dorsalis Pedis] Respiratory Rate 20 29 H Blood Pressure 148/95 H 129/71 H Blood Pressure [Left Arm] Pulse Oximetry 90 L 88 L Oxygen Delivery Method Nasal Cannula Oxygen Delivery Flow Rate 2 11/02/22 03:42 11/02/22 04:03 11/02/22 04:10 Temperature Pulse Rate 79 85 89 Pulse Rate [Monitor] Pulse Rate [Right Dorsalis Pedis] Respiratory Rate 26 H 20 13 Blood Pressure 135/74 H Blood Pressure [Left Arm] Pulse Oximetry 91 L 92 L 97 Oxygen Delivery Method Oxygen Delivery Flow Rate 11/02/22 04:20 11/02/22 04:30 11/02/22 04:40 Temperature Pulse Rate 80 82 86 Pulse Rate [Monitor] Pulse Rate [Right Dorsalis Pedis] Respiratory Rate 19 21 17 Blood Pressure Blood Pressure [Left Arm] Pulse Oximetry 91 L 91 L 87 L Oxygen Delivery Method Oxygen Delivery Flow Rate 11/02/22 04:50 11/02/22 05:00 11/02/22 05:10 Temperature Pulse Rate 99 H 90 97 H Pulse Rate [Monitor] Pulse Rate [Right Dorsalis Pedis] Respiratory Rate 16 17 22 Blood Pressure Blood Pressure [Left Arm] Pulse Oximetry 91 L 91 L Oxygen Delivery Method Oxygen Delivery Flow Rate 11/02/22 05:20 11/02/22 05:30 11/02/22 05:40 Temperature Pulse Rate 95 H 104 H 107 H Pulse Rate [Monitor] Pulse Rate [Right Dorsalis Pedis] Respiratory Rate 24 32 H 16 Blood Pressure Blood Pressure [Left Arm] Pulse Oximetry 91 L 95 92 L Oxygen Delivery Method Oxygen Delivery Flow Rate 11/02/22 05:50 11/02/22 05:57 11/02/22 05:57 Temperature Pulse Rate 109 H 97 H 99 H Pulse Rate [Monitor] Pulse Rate [Right Dorsalis Pedis] Respiratory Rate 16 19 18 Blood Pressure 148/95 H Blood Pressure [Left Arm] Pulse Oximetry 92 L Oxygen Delivery Method Oxygen Delivery Flow Rate 11/02/22 05:57 11/02/22 07:00 11/02/22 07:00 Temperature 98.2 F Pulse Rate 128 H Pulse Rate [Monitor] Pulse Rate [Right Dorsalis Pedis] 117 H Respiratory Rate 21 18 Blood Pressure 148/95 H Blood Pressure [Left Arm] 131/88 H Pulse Oximetry 89 L Oxygen Delivery Method Room Air Oxygen Delivery Flow Rate 11/02/22 08:00 Temperature 98.2 F Pulse Rate Pulse Rate [Monitor] Pulse Rate [Right Dorsalis Pedis] Respiratory Rate Blood Pressure Blood Pressure [Left Arm] Pulse Oximetry Oxygen Delivery Method Oxygen Delivery Flow Rate Documenting provider has reviewed patient's vital signs: yes Common normals: no apparent distress General appearance: cooperative and comfortable Chest Common normals: inspection of chest normal Respiratory Auscultation: clear to auscultation bilaterally Cardio Rhythm: abnormal rhythm Progress Note: Objective Labs Labs: Short CBC 11/02/22 Range/Units 04:10 WBC 9.7 (4.0-11.0) 10^3/uL Hgb 11.3 L (14.0-18.0) g/dL Hct 33.5 L (42.0-54.0) % Plt Count 246 (150-450) 10^3/uL BMP 11/02/22 04:10 Sodium 135 L Potassium 3.9 Chloride 98 Carbon Dioxide 30.8 BUN 19.0 H Creatinine 1.11 Glucose 119 H Calcium 7.6 L Liver Function 11/02/22 Range/Units 04:10 Total Bilirubin 0.9 (0.2-1.0) mg/dL AST 16 (15-37) U/L ALT 14 L (16-63) U/L Alkaline Phosphatase 72 (46-116) U/L Albumin 2.6 L (3.4-5.0) g/dL Progress Note: A&P Assessment and Plan (1) Congestive heart failure (CHF): (2) Hypoxemia: (3) Pleural effusion on left: (4) Atrial fibrillation with RVR: (5) Palpitations: (6) HTN (hypertension): (7) Iron deficiency anemia: (8) Left lower lobe pneumonia: (9) Moderate protein malnutrition: (10) Hypocalcemia: Plan palpitations, respiratory distress, acute hypxia, hypotension, leukocytosis secondary to acute exacerbation of chronic atrial fibrillation secondary to LLL pneumonia and resulting in acute combined congestive heart failure - Consult to cardiology, he had a visit coming up this week-We will try to track down notes from cardiology 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 Consult to cardiology-Added metoprolol, check on final echo result, try to wean supplemental oxygen, Left lower lobe pneumonia-add levofloxacin, continue Rocephin, change aerosols to routine, check sputum culture, leukocytosis improving-Repeat chest x-ray and try to wean supplemental oxygen, if we can wean him off of his supplemental oxygen he can be discharged later today. Left pleural effusion-complication of the above-improving that should improve the effusion, repeat chest x-ray serially-This a.m. Hyponatremia-complicating the above but improved today, continue to monitor Moderate protein calorie malnutrition-add Ensure Hypocalcemia-supplement Unable to improve symptoms over the first 12 hours patient will be here 2 midnights for continuous medical management-Keep patient inpatient status
--- NOTE | 2022-11-02 08:06 | XR_ITS ---
The [address] [address] Patient Name: TOBIN WONG MRN: [id number] date: 1935 Sex: M Assigned Patient Location: ICU Current Patient Location: ICU Accession/Order Number: [id number] Exam Date: 11/02/2022 08:50 Report Date: 11/02/2022 09:29 At the request of: BATSHEVA MACIAS Procedure: XR chest 2V EXAMINATION: XR chest 2V HISTORY: follow up pneumonia , shortness of breath COMPARISON: XR chest 11/01/2022, 10/09/2022 FINDINGS: LUNGS: Dense patchy/nodular opacities throughout the lungs, with confluent opacities/consolidation within lower left lung completely obscuring the heart and diaphragm margins.. VASCULATURE: No increased pulmonary vasculature. PLEURA: Small right, and likely left pleural effusions. CARDIAC: No cardiomegaly or cardiac silhouette abnormality. MEDIASTINUM: No visible mass or adenopathy. BONES: No fracture or visible bone lesion. OTHER: Negative. IMPRESSION: 1. Moderate-marked pulmonary infiltrates, greatest within left lung base, grossly stable compared to yesterday. 2. Small right pleural effusion. Left lung base is obscured but likely also has a pleural effusion. Electronically authenticated by: AUREA HUERTA Date: 11/02/2022 09:29
[2022-11-02] MEDS: CEFTRIAXONE 1,000 MG in 0.9 % SODIUM CHLORIDE 50 ML 100 MG IV (08:10)
[2022-11-02] MEDS: MULTIVITAMIN TABLET 400 TAB PO (08:12)
[2022-11-02] MEDS: DILTIAZEM HCL 240 MG CAP.ER.24H PO (08:13)
[2022-11-02] MEDS: APIXABAN 5 MG TABLET 2.5 MG PO ×2 (08:13→21:58)
[2022-11-02] MEDS: METOPROLOL TARTRATE 50 MG TABLET PO ×2 (08:13→21:59)
[2022-11-02] MEDS: LISINOPRIL 20 MG TABLET 40 MG PO (08:13)
[2022-11-02] MEDS: FERROUS SULFATE 325 MG TABLET PO ×2 (08:13→21:59)
[2022-11-02] MEDS: ASPIRIN 81 MG TAB.CHEW PO (08:14)
[2022-11-02] MEDS: FOLIC ACID 1 MG TABLET PO (08:14)
--- NOTE | 2022-11-02 09:20 | REH.PTDLY ---
Physical Therapy Daily Note PT Daily Note/Assess Start: 11/02/22 09:13 Freq: Status: Active Protocol: Document 11/02/22 08:05 ROSS (Rec: 11/02/22 09:19 [id number] Physical Therapy Daily Note/Assessment Time In 07:48 Time Out 08:05 Pain Level 0 Pain Level 0 Subjective Pt agreeable to therapy, no complaints this morning Therapeutic Exercise Minutes (minutes) 11 Therapeutic Exercise Units 1 Therapeutic Exercise Treatment Instructed pt in B LE seated exs at bedside 10x with LAQ and marching. Standing exs with 1 UE support on counter 10x ea with exs including HR, marching, mini squats, hip flex, and HS curl. SpO2 stays at 90% with standing exs. Therapeutic Activity Minutes (minutes) 6 Therapeutic Activity Units 0 Bed Mobility Ability Independent Chair Transfer Ability Independent Therapeutic Activity Comments Pt Ind with all transfers. Gait training with no AD 250 feet SBA-CGA at times with pt having 2 instances of swaying but able to self correct. SpO2 at 88% post ambulation and quickly rises to 92%. Total Therapy Minutes 17 Total Physical Therapy Units 1 Daily Note Summary Progressed gait distance with minimal dropping in SpO2 to 88 % and then rises quickly. Pt has improved ability to perform standing exs as well today.
[2022-11-02] MEDS: LEVOFLOXACIN IN DEXTROSE 5 % 750 MG/150 ML IV.SOLN 100 MG IV (10:33)
[2022-11-02] MEDS: FUROSEMIDE 40 MG/4 ML VIAL IVP (13:35)
[2022-11-03] VITALS (76 sets, daily range): BP systolic 107–152; BP diastolic 66–102; PULSE 61–108; RESP 5–33; TEMP 36.7–36.9; O2SAT 82–94
[2022-11-03] MEDS: IPRATROPIUM/ALBUTEROL SULFATE 3 ML AMPUL.NEB IH ×4 (04:13→22:00)
[2022-11-03 04:24] LABS: Basophils Percent Auto 0.2 % (0.2-2.0); Eosinophils Percent Auto 0.3 % (0.9-7.0); Hematocrit 31.8 % (42.0-54.0); Hemoglobin 11.1 g/dL (14.0-18.0); Immature Granulocytes Abs Auto 0.79 10^3/uL (0.00-0.03); Immature Granulocytes Pct Auto 6.7 % (0.0-0.5); Lymphocytes Absolute Auto 0.7 10^3/uL (1.2-3.8); Lymphocytes Percent Auto 6.2 % (20.5-60.0); Mean Corpuscular HGB Conc 34.9 g/dL (29.9-35.2); Mean Corpuscular Hemoglobin 31.4 pg (25.9-34.0); Mean Corpuscular Volume 89.8 fL (80.0-94.0); Mean Platelet Volume 9.1 fL (9.5-13.5); Monocytes Absolute Auto 0.8 10^3/uL (0.3-0.8); Monocytes Percent Auto 6.8 % (1.7-12.0); Neutrophils Absolute Auto 9.5 10^3/uL (1.4-6.5); Neutrophils Percent Auto 79.8 % (43.0-75.0); Platelet Count 250 10^3/uL (150-450); Red Blood Count 3.54 10^6/uL (4.70-6.10); Red Cell Distribution Width 17.8 % (11.0-15.0); White Blood Count 11.8 10^3/uL (4.0-11.0)
[2022-11-03 04:54] LABS: Alanine Aminotransferase 15 U/L (16-63); Albumin Globulin Ratio 0.7; Albumin Level 2.6 g/dL (3.4-5.0); Alkaline Phosphatase 75 U/L (46-116); Anion Gap 14.6; Aspartate Amino Transferase 16 U/L (15-37); BUN Creatinine Ratio 18.9; Bilirubin Total 0.8 mg/dL (0.2-1.0); Calcium 7.7 mg/dL (8.5-10.1); Carbon Dioxide 27.2 mmol/L (21.0-32.0); Chloride 94 mmol/L (98-107); Estimated GFR (African America >60 (>=60); Estimated GFR (Non-African Ame >60 (>=60); Globulin 3.7 g/dL; Glucose 125 mg/dL (74-106); Magnesium 1.9 mg/dL (1.8-2.4); Potassium 3.8 mmol/L (3.5-5.1); Sodium 132 mmol/L (136-145); Total Protein 6.3 g/dL (6.4-8.2)
[2022-11-03] MEDS: FUROSEMIDE 40 MG/4 ML VIAL IVP (05:36)
[2022-11-03] MEDS: DILTIAZEM HCL 240 MG CAP.ER.24H PO (06:33)
--- NOTE | 2022-11-03 07:47 | CT_ITS ---
The [address] [address] Patient Name: TOBIN WONG MRN: [id number] date: 1935 Sex: M Assigned Patient Location: ICU Current Patient Location: ICU Accession/Order Number: [id number] Exam Date: 11/03/2022 08:25 Report Date: 11/03/2022 09:04 At the request of: BATSHEVA MACIAS Procedure: CT angio chest CT angio chest, 11/03/2022 8:25 AM EDT INDICATION: Acute hypoxia COMPARISON: Radiograph of the chest 11/02/2022, PET/CT 01/29/2022. TECHNIQUE: Iodinated contrast was administered intravenously by rapid injection, with further multislice axial sections acquired in the pulmonary arterial phase from the thoracic inlet to the upper abdomen. Coronal maximal intensity projection and 3-D virtual images were created for comprehensive analysis and diagnosis of the regional circulation. Dose reduction techniques were achieved by using automated exposure control and/or adjustment of mA and/or kV according to patient size and/or use of iterative reconstruction technique. FINDINGS: Thyroid gland is unremarkable. Bilateral supraclavicular lymphadenopathy the largest a right supraclavicular lymph node 1.4 cm short axis. Mild cardiac enlargement. Trace pericardial effusion. No aortic aneurysm or dissection. The great vessels are unremarkable. No filling defect within the pulmonary arteries. Extensive bilateral hilar and mediastinal lymphadenopathy, the largest a 2.4 x 3.5 cm subcarinal betsy group. Bilateral pulmonary nodules too numerous to count with dense consolidation in the left upper lobe and lower lobes bilaterally. Large left pleural effusion and moderate-sized right pleural effusion. Prominence of the right adrenal gland without discrete nodule identified. Visualized portions of the upper abdomen are otherwise grossly unremarkable. No acute fracture or dislocation. IMPRESSION: 1. No pulmonary embolism. 2. 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 3. Multi lobar consolidation with moderate-sized right pleural effusion and large left pleural effusion. Electronically authenticated by: PRINCESS VILLANUEVA Date: 11/03/2022 09:04
--- NOTE | 2022-11-03 07:53 | P.PN_ITS ---
Progress Note: Subjective Subjective Interval history: Overall feels much betterStill with dyspnea with any activity though Exam Constitutional Vital Signs - 24 hr 11/02/22 08:00 11/02/22 08:16 11/02/22 08:00 Temperature 98.2 F Pulse Rate 110 H 113 H Pulse Rate [Monitor] Pulse Rate [Right Dorsalis Pedis] Respiratory Rate 24 Blood Pressure Blood Pressure [Left Arm] Pulse Oximetry Oxygen Delivery Method Oxygen Delivery Flow Rate 11/02/22 08:30 11/02/22 09:00 11/02/22 09:30 Temperature Pulse Rate 103 H 73 56 L Pulse Rate [Monitor] Pulse Rate [Right Dorsalis Pedis] Respiratory Rate 17 21 21 Blood Pressure Blood Pressure [Left Arm] Pulse Oximetry Oxygen Delivery Method Oxygen Delivery Flow Rate 11/02/22 10:00 11/02/22 10:30 11/02/22 11:00 Temperature Pulse Rate 64 63 57 L Pulse Rate [Monitor] Pulse Rate [Right Dorsalis Pedis] Respiratory Rate 18 23 26 H Blood Pressure Blood Pressure [Left Arm] Pulse Oximetry Oxygen Delivery Method Oxygen Delivery Flow Rate 11/02/22 11:24 11/02/22 12:09 11/02/22 12:00 Temperature Pulse Rate 75 Pulse Rate [Monitor] 87 Pulse Rate [Right Dorsalis Pedis] 70 Respiratory Rate 26 H Blood Pressure Blood Pressure [Left Arm] Pulse Oximetry 91 L Oxygen Delivery Method Room Air Oxygen Delivery Flow Rate 11/02/22 12:00 11/02/22 11:30 11/02/22 12:00 Temperature 98.2 F Pulse Rate 75 60 73 Pulse Rate [Monitor] Pulse Rate [Right Dorsalis Pedis] Respiratory Rate 26 H 23 21 Blood Pressure Blood Pressure [Left Arm] 131/88 H Pulse Oximetry 91 L 83 L Oxygen Delivery Method Room Air Room Air Oxygen Delivery Flow Rate 2 11/02/22 12:30 11/02/22 12:42 11/02/22 12:42 Temperature Pulse Rate 75 67 Pulse Rate [Monitor] Pulse Rate [Right Dorsalis Pedis] Respiratory Rate 27 H 25 H Blood Pressure 112/75 Blood Pressure [Left Arm] Pulse Oximetry 86 L Oxygen Delivery Method Oxygen Delivery Flow Rate 11/02/22 12:42 11/02/22 12:42 11/02/22 14:06 Temperature Pulse Rate 67 Pulse Rate [Monitor] Pulse Rate [Right Dorsalis Pedis] Respiratory Rate Blood Pressure 112/75 112/75 Blood Pressure [Left Arm] Pulse Oximetry 85 L 91 L Oxygen Delivery Method Oxygen Delivery Flow Rate 2 11/02/22 14:52 11/02/22 14:54 11/02/22 14:54 Temperature Pulse Rate 67 67 Pulse Rate [Monitor] 87 Pulse Rate [Right Dorsalis Pedis] 70 Respiratory Rate 25 H Blood Pressure Blood Pressure [Left Arm] Pulse Oximetry 88 L 88 L Oxygen Delivery Method Oxygen Delivery Flow Rate 11/02/22 14:55 11/02/22 16:03 11/02/22 16:26 Temperature 97.8 F Pulse Rate 78 76 Pulse Rate [Monitor] Pulse Rate [Right Dorsalis Pedis] Respiratory Rate 16 Blood Pressure Blood Pressure [Left Arm] 139/83 H Pulse Oximetry 94 L 90 L Oxygen Delivery Method Nasal Cannula Nasal Cannula Oxygen Delivery Flow Rate 2 2 11/02/22 17:27 11/02/22 18:04 11/02/22 20:00 Temperature Pulse Rate 76 99 H Pulse Rate [Monitor] Pulse Rate [Right Dorsalis Pedis] Respiratory Rate 20 Blood Pressure Blood Pressure [Left Arm] Pulse Oximetry 90 L Oxygen Delivery Method Oxygen Delivery Flow Rate 11/02/22 22:33 11/02/22 19:43 11/02/22 19:45 Temperature 98.2 F Pulse Rate 106 H 106 H 106 H Pulse Rate [Monitor] Pulse Rate [Right Dorsalis Pedis] Respiratory Rate 20 Blood Pressure Blood Pressure [Left Arm] 113/81 H Pulse Oximetry 91 L 91 L Oxygen Delivery Method Nasal Cannula Oxygen Delivery Flow Rate 2 11/02/22 12:42 11/02/22 13:00 11/02/22 13:30 Temperature Pulse Rate 70 72 Pulse Rate [Monitor] Pulse Rate [Right Dorsalis Pedis] Respiratory Rate 24 20 Blood Pressure 112/75 Blood Pressure [Left Arm] Pulse Oximetry 82 L Oxygen Delivery Method Oxygen Delivery Flow Rate 11/02/22 14:00 11/02/22 14:30 11/02/22 14:57 Temperature Pulse Rate 72 76 Pulse Rate [Monitor] Pulse Rate [Right Dorsalis Pedis] Respiratory Rate 26 H 18 Blood Pressure 139/83 H Blood Pressure [Left Arm] Pulse Oximetry 91 L Oxygen Delivery Method Oxygen Delivery Flow Rate 11/02/22 14:57 11/02/22 15:00 11/02/22 15:30 Temperature Pulse Rate 73 72 81 Pulse Rate [Monitor] Pulse Rate [Right Dorsalis Pedis] Respiratory Rate 18 27 H 24 Blood Pressure Blood Pressure [Left Arm] Pulse Oximetry Oxygen Delivery Method Oxygen Delivery Flow Rate 11/02/22 16:00 11/02/22 16:30 11/02/22 17:00 Temperature Pulse Rate 77 91 H 100 H Pulse Rate [Monitor] Pulse Rate [Right Dorsalis Pedis] Respiratory Rate 23 19 16 Blood Pressure Blood Pressure [Left Arm] Pulse Oximetry Oxygen Delivery Method Oxygen Delivery Flow Rate 11/02/22 17:30 11/02/22 18:00 11/02/22 18:30 Temperature Pulse Rate 109 H 103 H 104 H Pulse Rate [Monitor] Pulse Rate [Right Dorsalis Pedis] Respiratory Rate 13 21 12 Blood Pressure Blood Pressure [Left Arm] Pulse Oximetry Oxygen Delivery Method Oxygen Delivery Flow Rate 11/02/22 19:00 11/02/22 19:15 11/02/22 19:15 Temperature Pulse Rate 89 92 H Pulse Rate [Monitor] Pulse Rate [Right Dorsalis Pedis] Respiratory Rate 21 16 Blood Pressure 113/81 H Blood Pressure [Left Arm] Pulse Oximetry Oxygen Delivery Method Oxygen Delivery Flow Rate 11/02/22 19:30 11/02/22 23:26 11/02/22 23:26 Temperature Pulse Rate 88 70 Pulse Rate [Monitor] Pulse Rate [Right Dorsalis Pedis] Respiratory Rate 20 18 Blood Pressure Blood Pressure [Left Arm] Pulse Oximetry 89 L 89 L Oxygen Delivery Method Nasal Cannula Nasal Cannula Oxygen Delivery Flow Rate 2 2 11/03/22 00:14 11/03/22 00:14 11/02/22 20:00 Temperature Pulse Rate 61 97 H Pulse Rate [Monitor] Pulse Rate [Right Dorsalis Pedis] 70 Respiratory Rate 21 18 Blood Pressure Blood Pressure [Left Arm] 128/85 H Pulse Oximetry 90 L Oxygen Delivery Method Nasal Cannula Oxygen Delivery Flow Rate 2 11/02/22 20:30 11/02/22 21:00 11/02/22 21:30 Temperature Pulse Rate 95 H 100 H 95 H Pulse Rate [Monitor] Pulse Rate [Right Dorsalis Pedis] Respiratory Rate 18 19 19 Blood Pressure Blood Pressure [Left Arm] Pulse Oximetry Oxygen Delivery Method Oxygen Delivery Flow Rate 11/02/22 22:00 11/02/22 22:30 11/02/22 23:00 Temperature Pulse Rate 88 94 H 74 Pulse Rate [Monitor] Pulse Rate [Right Dorsalis Pedis] Respiratory Rate 21 12 17 Blood Pressure Blood Pressure [Left Arm] Pulse Oximetry Oxygen Delivery Method Oxygen Delivery Flow Rate 11/02/22 23:21 11/02/22 23:21 11/02/22 23:21 Temperature Pulse Rate 82 Pulse Rate [Monitor] Pulse Rate [Right Dorsalis Pedis] Respiratory Rate 28 H Blood Pressure 128/85 H 128/85 H Blood Pressure [Left Arm] Pulse Oximetry 97 95 Oxygen Delivery Method Oxygen Delivery Flow Rate 11/02/22 23:30 11/03/22 04:04 11/03/22 04:04 Temperature Pulse Rate 79 76 Pulse Rate [Monitor] Pulse Rate [Right Dorsalis Pedis] 70 Respiratory Rate 21 21 Blood Pressure Blood Pressure [Left Arm] Pulse Oximetry Oxygen Delivery Method Oxygen Delivery Flow Rate 11/03/22 05:36 11/03/22 04:13 11/03/22 00:00 Temperature Pulse Rate 67 68 Pulse Rate [Monitor] Pulse Rate [Right Dorsalis Pedis] Respiratory Rate 16 21 Blood Pressure 143/91 H Blood Pressure [Left Arm] Pulse Oximetry 89 L Oxygen Delivery Method Nasal Cannula Oxygen Delivery Flow Rate 2 11/03/22 00:30 11/03/22 01:00 11/03/22 01:30 Temperature Pulse Rate 72 73 70 Pulse Rate [Monitor] Pulse Rate [Right Dorsalis Pedis] Respiratory Rate 18 10 L 17 Blood Pressure Blood Pressure [Left Arm] Pulse Oximetry Oxygen Delivery Method Oxygen Delivery Flow Rate 11/03/22 02:00 11/03/22 02:30 11/03/22 03:00 Temperature Pulse Rate 64 65 68 Pulse Rate [Monitor] Pulse Rate [Right Dorsalis Pedis] Respiratory Rate 17 5 L 27 H Blood Pressure Blood Pressure [Left Arm] Pulse Oximetry Oxygen Delivery Method Oxygen Delivery Flow Rate 11/03/22 03:30 11/03/22 04:00 11/03/22 04:07 Temperature Pulse Rate 66 83 Pulse Rate [Monitor] Pulse Rate [Right Dorsalis Pedis] Respiratory Rate 23 23 Blood Pressure 143/91 H Blood Pressure [Left Arm] Pulse Oximetry 89 L Oxygen Delivery Method Oxygen Delivery Flow Rate 11/03/22 04:07 11/03/22 04:30 11/03/22 06:31 Temperature Pulse Rate 76 86 85 Pulse Rate [Monitor] Pulse Rate [Right Dorsalis Pedis] Respiratory Rate 19 20 Blood Pressure Blood Pressure [Left Arm] Pulse Oximetry Oxygen Delivery Method Oxygen Delivery Flow Rate 11/03/22 07:40 11/03/22 07:43 Temperature 98.1 F Pulse Rate 68 68 Pulse Rate [Monitor] Pulse Rate [Right Dorsalis Pedis] Respiratory Rate 18 Blood Pressure Blood Pressure [Left Arm] 121/85 H Pulse Oximetry 90 L Oxygen Delivery Method Nasal Cannula Oxygen Delivery Flow Rate 2 HENMT Common normals: moist oral mucous membranes Chest Common normals: inspection of chest normal Respiratory Common normals: abnormal respiratory effort (Mild conversational dyspnea) Effort & inspection: respiratory distress Auscultation: rales and diminished lung sounds Cardio Common normals: regular rhythm GI Common normals: Normal to inspection, nondistended, normoactive bowel sounds present Progress Note: Objective Labs Labs: Short CBC 11/03/22 Range/Units 04:10 WBC 11.8 H (4.0-11.0) 10^3/uL Hgb 11.1 L (14.0-18.0) g/dL Hct 31.8 L (42.0-54.0) % Plt Count 250 (150-450) 10^3/uL BMP 11/03/22 04:10 Sodium 132 L Potassium 3.8 Chloride 94 L Carbon Dioxide 27.2 BUN 18.0 Creatinine 0.95 Glucose 125 H Calcium 7.7 L Liver Function 11/03/22 Range/Units 04:10 Total Bilirubin 0.8 (0.2-1.0) mg/dL AST 16 (15-37) U/L ALT 15 L (16-63) U/L Alkaline Phosphatase 75 (46-116) U/L Albumin 2.6 L (3.4-5.0) g/dL Progress Note: A&P Assessment and Plan (1) Congestive heart failure (CHF): (2) Hypoxemia: (3) Pleural effusion on left: (4) Atrial fibrillation with RVR: (5) Palpitations: (6) HTN (hypertension): (7) Iron deficiency anemia: (8) Left lower lobe pneumonia: (9) Moderate protein malnutrition: (10) Hypocalcemia: Plan palpitations, respiratory distress, acute hypxia, hypotension, leukocytosis secondary to acute exacerbation of chronic atrial fibrillation secondary to LLL pneumonia and resulting in acute combined congestive heart failure - Will cardiology reeval today 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 Consult to cardiology-Added metoprolol, Heart rate overall better-Repeat Bumex drip Left lower lobe pneumonia-add levofloxacin, continue Rocephin, change aerosols to routine, check sputum culture, White blood cell count up slightly today, maintain current antibiotics, check CTA Left pleural effusion-complication of the above-improving that should improve the effusion, repeat chest x-ray serially-This a.m.-Check CTA Hyponatremia-complicating the above Down slightly today Moderate protein calorie malnutrition-add Ensure Hypocalcemia-supplement Unable to improve symptoms over the first 12 hours patient will be here 2 midnights for continuous medical management-Keep patient inpatient status
[2022-11-03] MEDS: CEFTRIAXONE 1,000 MG in 0.9 % SODIUM CHLORIDE 50 ML 100 MG IV (08:09)
[2022-11-03] MEDS: APIXABAN 5 MG TABLET 2.5 MG PO ×2 (08:11→21:06)
[2022-11-03] MEDS: LISINOPRIL 20 MG TABLET 40 MG PO (08:11)
[2022-11-03] MEDS: ASPIRIN 81 MG TAB.CHEW PO (08:11)
[2022-11-03] MEDS: FERROUS SULFATE 325 MG TABLET PO ×2 (08:11→21:05)
[2022-11-03] MEDS: METOPROLOL TARTRATE 50 MG TABLET PO ×2 (08:12→21:06)
[2022-11-03] MEDS: MULTIVITAMIN TABLET 400 TAB PO (08:12)
[2022-11-03] MEDS: LEVOFLOXACIN IN DEXTROSE 5 % 750 MG/150 ML IV.SOLN 100 MG IV (09:19)
[2022-11-03] MEDS: BUMETANIDE 10 MG in 0.9 % SODIUM CHLORIDE 160 ML 20 MG IV (10:43)
--- NOTE | 2022-11-03 11:35 | RESP.RT ---
nasal cannula came unhooked from humidification, SpO2 82%, placed back on O2 at 2 LPM, SpO2 slowly raisa to 85%, increased to 4 LPM, SpO2 91%
--- NOTE | 2022-11-03 12:56 | XR_ITS ---
The [address] [address] Patient Name: TOBIN WONG MRN: [id number] date: 1935 Sex: M Assigned Patient Location: ICU Current Patient Location: ICU Accession/Order Number: [id number] Exam Date: 11/03/2022 01:00 Report Date: 11/03/2022 13:19 At the request of: CAROLYNE FAITH Procedure: XR chest 1V EXAMINATION: XR chest 1V HISTORY: s/p L thoracentesis COMPARISON: XR chest 11/02/2022 FINDINGS: LUNGS: Patchy confluent opacities bilaterally, increased on right, grossly stable on left. VASCULATURE: No increased pulmonary vasculature. PLEURA: Decreased opacity within left lung base consistent with post thoracentesis. CARDIAC: No cardiomegaly or cardiac silhouette abnormality. MEDIASTINUM: No visible mass or adenopathy. BONES: No fracture or visible bone lesion. OTHER: Negative. IMPRESSION: 1. No pneumothorax. 2. Decreased left pleural fluid. Suspect small amount remaining fluid. 3. Bilateral pulmonary nodules confluent opacities consistent with metastatic disease. 4. Increased right basilar infiltrates; post procedure atelectasis versus edema. Electronically authenticated by: AUREA HUERTA Date: 11/03/2022 13:19
--- NOTE | 2022-11-03 13:16 | P.ON_ITS ---
Date of procedure: 11/03/22 Pre-op diagnosis: Large left pleural effusion Post-op diagnosis: same Procedure: Diagnostic and therapeutic ultrasound-guided left-sided thoracentesis Risks, benefits, and alternatives were discussed with the patient. Patient was counseled that he is at increased risk of bleeding has developed as Eliquis would not be held. I felt that the patient's respiratory status was deteriorating too rapidly to wait until tomorrow to perform the thoracentesis (i.e. benefits outweighed risks), to which he voiced understanding and signed informed consent. Time out was initiated to confirm the correct patient, site, and procedure with all present voicing in the affirmative. The patient was placed in the seated position in the hospital bed. Ultrasound was utilized to identify the hemidiaphragm and pleural fluid on the left. Tongue sign was present on ultrasound, indicating a large pleural effusion. An appropriate drainage site was marked via pen, based on anatomical landmarks and the ultrasound findings. Chloraprep was used to cleanse the lower left hem ithorax. Sterile drapes were applied. Lidocaine 1% 10mL was injected, first as superficial skin wheal, and then using aspiration technique, advanced over the superior aspect of the lower rib subcutaneously at the periosteum and then parietal pleura. Easy return of [] pleural fluid was aspirated. Next, a small incision was made to the anesthetized area with the blade provided in the prepackaged thoracentesis kit. Hemostasis was achieved. A [id number] apparatus was advanced as a unit over the superior aspect of the lower rib into the pleural space with great care to prevent further progression of the needle into the pleural cavity. The needle was then retracted completely and discarded. A vacuum collection system was attached to the catheter and pleural fluid was collected for analysis. A total of 1600mL of pleural fluid was removed. The procedure was terminated due to Patient coughing. The catheter was then removed during an expiratory breath-hold maneuver. The patient tolerated the procedure well. A post-procedural portable chest x-ray was ordered to assess adequacy of pleural fluid drainage and to evaluate for iatrogenic pneumothorax; results are pending at the time of this report. Anesthesia: Local (Lidocaine 1% 10mL subQ) Surgeon: Joshua Lopez Estimated blood loss (mL): 1
--- NOTE | 2022-11-03 13:24 | P.PLCN_ITS ---
History of Present Illness History of Present Illness Consult date: 11/03/22 Requesting physician: Jeffrey Mcclure Reason for consult: pleural effusion Chief complaint: SHORTNESS OF BREATH Narrative: 87yo male presented to [facility] ER (the 5th time in ~2 months per the ) with worsening dyspnea. He has metastatic melanoma, mantle cell lymphoma, and bladder cancer - managed by Dr. Monreal. Last visit with him was ~4 months ago. I do not have records, but the states that lymph tissue was increasing in size and he was started on an apparent monoclonal antibody for it, as the patient did not want chemotherapy. He was actually due to see him within the week for F/U. Upon presentation to the Emergency Room, he was found to have a left lower lobe infiltrate, atrial fibrillation with rapid ventricular rate, congestive heart failure, and acute hypoxic respiratory failure. Patient was started on Bumex drip, though his respiratory status did not improve. In fact, he required an increased flow of oxygen this morning. He was 87% on 4L/min O2. CT chest was obtained which showed a large left and moderate sized right pleural effusions, lymphadenopathy, and innumerable cannonball metastases. Pulmonary was consulted for evaluation of the effusion. Upon evaluation, the patient was laying left lateral recumbent. He states it was difficult for him to breathe. Oxygenation remained tenuous, hovering in the high 80s despite supplemental oxygen. As he currently is on anticoagulation, typically that is held for 24 hours to reduce the bleeding risk; however, as he is so symptomatic with worsening oxygenation, I felt the benefits outweighed the risks to perform the thoracentesis while he was on Eliquis. I explained this to the patient, as well as to his and son. The patient voiced agreement to proceed, and informed consent was obtained. An ultrasound-guided diagnostic and therapeutic left-sided thoracentesis performed with 1600mL removed of joan- colored fluid. Thoracentesis was stopped due to patient's coughing. There still was quite a bit of fluid when I scan the chest via ultrasound after the procedure. Review of Systems ROS Status of ROS 10 or more systems reviewed and unremarkable except as noted in history and below Respiratory Reports: shortness of breath and cough; Denies: coughing up blood Musculoskeletal Reports: muscle weakness [facility] Medical History (Updated 11/03/22 @ 18:16 by Joshua Lopez DO) Surgical History (Updated 10/31/22 @ 14:16 by Na Le) Family History (Updated 10/31/22 @ 14:17 by Na Le) Father Family history of stroke Social History (Updated 10/31/22 @ 14:18 by Na Le) Within the past year, how often did you have a drink containing alcohol: never Within the past year, how often did you have six or more drinks on one occasion: never Score interpretation: A score less than 4 is consistent with normal alcohol consumption. Smoking status: Former smoker Non-prescribed substance use: denies use Previous occupational history: factory Known occupational exposures/hazards: No Highest level of school completed/degree received: high school graduate Meds Home Medications and Allergies Home Medications Medication Instructions Recorded Confirmed Type apixaban 2.5 mg tablet (Eliquis) 2.5 mg PO Q12H afib 10/22/22 10/31/22 History aspirin 81 mg capsule 81 mg PO QDAY 10/22/22 10/31/22 History ferrous sulfate 325 mg (65 mg 325 mg PO BID 10/22/22 10/31/22 History iron) tablet (FeroSul) folic acid 1 mg tablet 1 mg PO .6 days week 10/22/22 10/31/22 History hydralazine 50 mg tablet 50 mg PO Q12H 10/22/22 10/31/22 History lisinopril 40 mg tablet 40 mg PO .evening 10/22/22 10/31/22 History methotrexate sodium 2.5 mg tablet 10 mg PO .tuesday10/22/22 10/31/22 History multivitamin (Daily Multi-Vitamin 1 tab PO QAM 10/22/22 10/31/22 History tablet) diltiazem HCl 240 mg 240 mg PO QD #30 caps 11/02/22 Rx capsule,extended release 24 hr levofloxacin 500 mg tablet 500 mg PO DAILY 10 days #10 tabs 11/02/22 Rx metoprolol tartrate 50 mg tablet 50 mg PO BID #60 tabs 11/02/22 Rx Allergies Allergy/AdvReac Type Severity Reaction Status Date / Time Sulfa (Sulfonamide Allergy Unknown Verified 10/31/22 09:17 Antibiotics) BACTRIM Allergy Unknown Uncoded 10/31/22 09:17 Exam Constitutional Vital Signs - 24 hr 11/02/22 14:06 11/02/22 14:52 11/02/22 14:54 Temperature Pulse Rate 67 67 Pulse Rate [Monitor] 87 Pulse Rate [Right Dorsalis Pedis] 70 Respiratory Rate 25 H Blood Pressure Blood Pressure [Left Arm] Pulse Oximetry 88 L Oxygen Delivery Method Oxygen Delivery Flow Rate 11/02/22 14:54 11/02/22 14:55 11/02/22 16:03 Temperature 97.8 F Pulse Rate 67 78 76 Pulse Rate [Monitor] Pulse Rate [Right Dorsalis Pedis] Respiratory Rate 16 Blood Pressure Blood Pressure [Left Arm] 139/83 H Pulse Oximetry 88 L 94 L Oxygen Delivery Method Nasal Cannula Oxygen Delivery Flow Rate 2 11/02/22 16:26 11/02/22 17:27 11/02/22 18:04 Temperature Pulse Rate 76 99 H Pulse Rate [Monitor] Pulse Rate [Right Dorsalis Pedis] Respiratory Rate Blood Pressure Blood Pressure [Left Arm] Pulse Oximetry 90 L 90 L Oxygen Delivery Method Nasal Cannula Oxygen Delivery Flow Rate 2 11/02/22 20:00 11/02/22 22:33 11/02/22 19:43 Temperature 98.2 F Pulse Rate 106 H 106 H Pulse Rate [Monitor] Pulse Rate [Right Dorsalis Pedis] Respiratory Rate 20 20 Blood Pressure Blood Pressure [Left Arm] 113/81 H Pulse Oximetry 91 L 91 L Oxygen Delivery Method Nasal Cannula Oxygen Delivery Flow Rate 2 11/02/22 19:45 11/02/22 13:30 11/02/22 14:00 Temperature Pulse Rate 106 H 72 72 Pulse Rate [Monitor] Pulse Rate [Right Dorsalis Pedis] Respiratory Rate 20 26 H Blood Pressure Blood Pressure [Left Arm] Pulse Oximetry Oxygen Delivery Method Oxygen Delivery Flow Rate 11/02/22 14:30 11/02/22 14:57 11/02/22 14:57 Temperature Pulse Rate 76 73 Pulse Rate [Monitor] Pulse Rate [Right Dorsalis Pedis] Respiratory Rate 18 18 Blood Pressure 139/83 H Blood Pressure [Left Arm] Pulse Oximetry 91 L Oxygen Delivery Method Oxygen Delivery Flow Rate 11/02/22 15:00 11/02/22 15:30 11/02/22 16:00 Temperature Pulse Rate 72 81 77 Pulse Rate [Monitor] Pulse Rate [Right Dorsalis Pedis] Respiratory Rate 27 H 24 23 Blood Pressure Blood Pressure [Left Arm] Pulse Oximetry Oxygen Delivery Method Oxygen Delivery Flow Rate 11/02/22 16:30 11/02/22 17:00 11/02/22 17:30 Temperature Pulse Rate 91 H 100 H 109 H Pulse Rate [Monitor] Pulse Rate [Right Dorsalis Pedis] Respiratory Rate 19 16 13 Blood Pressure Blood Pressure [Left Arm] Pulse Oximetry Oxygen Delivery Method Oxygen Delivery Flow Rate 11/02/22 18:00 11/02/22 18:30 11/02/22 19:00 Temperature Pulse Rate 103 H 104 H 89 Pulse Rate [Monitor] Pulse Rate [Right Dorsalis Pedis] Respiratory Rate 21 12 21 Blood Pressure Blood Pressure [Left Arm] Pulse Oximetry Oxygen Delivery Method Oxygen Delivery Flow Rate 11/02/22 19:15 11/02/22 19:15 11/02/22 19:30 Temperature Pulse Rate 92 H 88 Pulse Rate [Monitor] Pulse Rate [Right Dorsalis Pedis] Respiratory Rate 16 20 Blood Pressure 113/81 H Blood Pressure [Left Arm] Pulse Oximetry Oxygen Delivery Method Oxygen Delivery Flow Rate 11/02/22 23:26 11/02/22 23:26 11/03/22 00:14 Temperature Pulse Rate 70 Pulse Rate [Monitor] Pulse Rate [Right Dorsalis Pedis] 70 Respiratory Rate 18 21 Blood Pressure Blood Pressure [Left Arm] Pulse Oximetry 89 L 89 L Oxygen Delivery Method Nasal Cannula Nasal Cannula Oxygen Delivery Flow Rate 2 2 11/03/22 00:14 11/02/22 20:00 11/02/22 20:30 Temperature Pulse Rate 61 97 H 95 H Pulse Rate [Monitor] Pulse Rate [Right Dorsalis Pedis] Respiratory Rate 18 18 Blood Pressure Blood Pressure [Left Arm] 128/85 H Pulse Oximetry 90 L Oxygen Delivery Method Nasal Cannula Oxygen Delivery Flow Rate 2 11/02/22 21:00 11/02/22 21:30 11/02/22 22:00 Temperature Pulse Rate 100 H 95 H 88 Pulse Rate [Monitor] Pulse Rate [Right Dorsalis Pedis] Respiratory Rate 19 19 21 Blood Pressure Blood Pressure [Left Arm] Pulse Oximetry Oxygen Delivery Method Oxygen Delivery Flow Rate 11/02/22 22:30 11/02/22 23:00 11/02/22 23:21 Temperature Pulse Rate 94 H 74 Pulse Rate [Monitor] Pulse Rate [Right Dorsalis Pedis] Respiratory Rate 12 17 Blood Pressure 128/85 H Blood Pressure [Left Arm] Pulse Oximetry 97 Oxygen Delivery Method Oxygen Delivery Flow Rate 11/02/22 23:21 11/02/22 23:21 11/02/22 23:30 Temperature Pulse Rate 82 79 Pulse Rate [Monitor] Pulse Rate [Right Dorsalis Pedis] Respiratory Rate 28 H 21 Blood Pressure 128/85 H Blood Pressure [Left Arm] Pulse Oximetry 95 Oxygen Delivery Method Oxygen Delivery Flow Rate 11/03/22 04:04 11/03/22 04:04 11/03/22 05:36 Temperature Pulse Rate 76 Pulse Rate [Monitor] Pulse Rate [Right Dorsalis Pedis] 70 Respiratory Rate 21 Blood Pressure 143/91 H Blood Pressure [Left Arm] Pulse Oximetry Oxygen Delivery Method Oxygen Delivery Flow Rate 11/03/22 04:13 11/03/22 00:00 11/03/22 00:30 Temperature Pulse Rate 67 68 72 Pulse Rate [Monitor] Pulse Rate [Right Dorsalis Pedis] Respiratory Rate 16 21 18 Blood Pressure Blood Pressure [Left Arm] Pulse Oximetry 89 L Oxygen Delivery Method Nasal Cannula Oxygen Delivery Flow Rate 2 11/03/22 01:00 11/03/22 01:30 11/03/22 02:00 Temperature Pulse Rate 73 70 64 Pulse Rate [Monitor] Pulse Rate [Right Dorsalis Pedis] Respiratory Rate 10 L 17 17 Blood Pressure Blood Pressure [Left Arm] Pulse Oximetry Oxygen Delivery Method Oxygen Delivery Flow Rate 11/03/22 02:30 11/03/22 03:00 11/03/22 03:30 Temperature Pulse Rate 65 68 66 Pulse Rate [Monitor] Pulse Rate [Right Dorsalis Pedis] Respiratory Rate 5 L 27 H 23 Blood Pressure Blood Pressure [Left Arm] Pulse Oximetry Oxygen Delivery Method Oxygen Delivery Flow Rate 11/03/22 04:00 11/03/22 04:07 11/03/22 04:07 Temperature Pulse Rate 83 76 Pulse Rate [Monitor] Pulse Rate [Right Dorsalis Pedis] Respiratory Rate 23 19 Blood Pressure 143/91 H Blood Pressure [Left Arm] Pulse Oximetry 89 L Oxygen Delivery Method Oxygen Delivery Flow Rate 11/03/22 04:30 11/03/22 06:31 11/03/22 07:40 Temperature 98.1 F Pulse Rate 86 85 68 Pulse Rate [Monitor] Pulse Rate [Right Dorsalis Pedis] Respiratory Rate 20 18 Blood Pressure Blood Pressure [Left Arm] 121/85 H Pulse Oximetry 90 L Oxygen Delivery Method Nasal Cannula Oxygen Delivery Flow Rate 2 11/03/22 07:43 11/03/22 09:46 11/03/22 11:34 Temperature Pulse Rate 68 68 Pulse Rate [Monitor] Pulse Rate [Right Dorsalis Pedis] Respiratory Rate Blood Pressure Blood Pressure [Left Arm] Pulse Oximetry 90 L 82 L Oxygen Delivery Method Room Air Oxygen Delivery Flow Rate 11/03/22 11:37 11/03/22 11:54 11/03/22 11:54 Temperature Pulse Rate 74 Pulse Rate [Monitor] Pulse Rate [Right Dorsalis Pedis] 70 Respiratory Rate 18 Blood Pressure Blood Pressure [Left Arm] Pulse Oximetry 93 L 93 L Oxygen Delivery Method Nasal Cannula Oxygen Delivery Flow Rate 4 11/03/22 11:54 Temperature 98.1 F Pulse Rate 68 Pulse Rate [Monitor] Pulse Rate [Right Dorsalis Pedis] Respiratory Rate 18 Blood Pressure Blood Pressure [Left Arm] 119/79 Pulse Oximetry 88 L Oxygen Delivery Method Nasal Cannula Oxygen Delivery Flow Rate 4 Documenting provider has reviewed patient's vital signs: yes General appearance: cooperative HENMT Other: Wearing nasal cannula Chest Chest: symmetrical chest wall rise Respiratory Other: Patient did not appear comfortable with his breathing. Breaths were shallow. Majority of the left chest was diminished with dullness to percussion and eg ophony. Dullness and egophony were present on the right side, but more limited towards the base. Increased crackles at the lung/fluid line. Cardio Other: Irregularly irregular rhythm, rate is controlled Back & Pelvis Other: Scars noted from melanoma excision sites, well-healed. Neuro Other: Hard of hearing Results Laboratory Findings ABG, PT/INR, D-dimer: ABG ABG pH 7.471 (7.350-7.450) H 10/31/22 11:00 ABG pCO2 34.1 mmHg (35.0-45.0) L 10/31/22 11:00 ABG pO2 58.8 mmHg (80.0-100.0) L 10/31/22 11:00 ABG O2 Saturation 91.5 % 10/31/22 11:00 PT/INR, D-dimer PT 14.6 sec (9.0-11.6) H 10/31/22 09:28 INR 1.40 10/31/22 09:28 Abnormal lab findings: Abnormal Labs 10/31/22 10/31/22 11/01/22 09:28 11:00 03:55 WBC 15.0 H RBC 4.07 L 3.81 L Hgb 12.6 L 12.0 L Hct 37.8 L 35.6 L RDW 19.0 H 18.8 H MPV 9.2 L 9.1 L Neut % (Auto) 78.8 H 77.1 H Lymph % (Auto) 5.2 L 8.6 L Eos % (Auto) 0.2 L 0.7 L Neut # (Auto) 11.8 H 8.1 H Lymph # (Auto) 0.8 L 0.9 L Robeson # (Auto) 1.2 H Abs Immat Gran (auto) 1.15 H 0.66 H Imm/Tot Granulo (auto) 7.7 H 6.3 H PT 14.6 H ABG pH 7.471 H ABG pCO2 34.1 L ABG pO2 58.8 L Sodium 132 L 135 L Chloride BUN 19.0 H 19.0 H Est GFR (Non-Af Amer) 55 L Glucose 127 H 115 H Calcium 8.0 L 7.7 L ALT 15 L 11 L NT-Pro-B Natriuret Pep 7104.0 H* 4687.0 H* Total Protein 6.1 L Albumin 2.9 L 2.5 L 11/02/22 11/03/22 04:10 04:10 WBC 11.8 H RBC 3.63 L 3.54 L Hgb 11.3 L 11.1 L Hct 33.5 L 31.8 L RDW 18.4 H 17.8 H MPV 9.0 L 9.1 L Neut % (Auto) 78.0 H 79.8 H Lymph % (Auto) 9.0 L 6.2 L Eos % (Auto) 0.3 L 0.3 L Neut # (Auto) 7.6 H 9.5 H Lymph # (Auto) 0.9 L 0.7 L Robeson # (Auto) Abs Immat Gran (auto) 0.67 H 0.79 H Imm/Tot Granulo (auto) 6.9 H 6.7 H PT ABG pH ABG pCO2 ABG pO2 Sodium 135 L 132 L Chloride 94 L BUN 19.0 H Est GFR (Non-Af Amer) Glucose 119 H 125 H Calcium 7.6 L 7.7 L ALT 14 L 15 L NT-Pro-B Natriuret Pep 5031.0 H* 3965.0 H* Total Protein 5.8 L 6.3 L Albumin 2.6 L 2.6 L Assessment and Plan Assessment and Plan (1) Pleural effusion, bilateral: Assessment and Plan: Bilateral effusions, L > R. Given cannonball mets on CT imaging, concerned that these are metastatic effusions. Other considerations are secondary to CHF, parapneumonic. As patient was symptomatic, performed urgent left thoracentesis today. Discussed with and son that if the effusion is metastatic, then options may include a Pleurx catheter which are not available here. Will see how patient is tomorrow. 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 Secondary to presumptive metastatic melanoma (not 100% clear on this). Patient may only have weeks-months to live, especially as this was his 5th trip to [facility] ER in the past ~2 months. Comfort care/Hospice may be an option which needs to be considered if the patient declines further. Plan palpitations, respiratory distress, acute hypxia, hypotension, leukocytosis secondary to acute exacerbation of chronic atrial fibrillation secondary to LLL pneumonia and resulting in acute combined congestive heart failure - Consult to cardiology, he had a visit coming up this week Acute combined congestive heart failure With cardiomegaly-check echo, check Lanoxin level, Bumex drip today. Consult to cardiology Left lower lobe pneumonia-add levofloxacin, continue Rocephin, change aerosols to routine, check sputum culture, leukocytosis improving Left pleural effusion-complication of the above-improving that should improve the effusion, repeat chest x-ray serially Hyponatremia-complicating the above but improved today, continue to monitor Moderate protein calorie malnutrition-add Ensure Hypocalcemia-supplement Unable to improve symptoms over the first 12 hours patient will be here 2 midnights for continuous medical management-Keep patient inpatient status
--- NOTE | 2022-11-03 13:29 | OT.DAILY ---
Occupational Therapy Daily Note OT Inpatient Daily Visit Note Start: 11/01/22 18:10 Freq: Status: Active Protocol: Document 11/03/22 13:17 TORIMILLER (Rec: 11/03/22 13:24 KGMILLER [id number]) OT Visit Details Time In/Time Out Time In 12:56 Time Out 13:16 Pain In Pain N/A Pain Out Pain N/A OT Treatment Plan Subjective Subjective I just had a procedure done and it did not hurt at all. I can tell i am breathing better . Objective Objective B UE ROM stretches in bed. Able to complete stretches to all planes with no pain or irritation. No weights or resistive bands used on this date. Stretches to shld for flex/ext, IR/ER, Abd/Add, elbow flex/ext,wrist flex/ext. pronation/supination, digit flex/ext. O2 level remained between 89- 92% ed on PLB to increase blood O2 level. NO ADL done on this date due to pt reports already has been performed. Assessment Assessment Jacob tx well on this date while laying in bed. Patient Education Patient Education PLB tech to increase blood O2 level Plan Plan Cont with current POC OT Billing Total Treatment Time Total treatment minutes 20 Total timed treatment Minutes 20 Total untimed treatment minutes 0 Sql Ssrs Developer Timed Codes Therapeutic activity minutes (minutes) 20 Therapeutic activity units 2
[2022-11-03] MEDS: ACETAMINOPHEN 500 MG TABLET 1000 MG PO (23:19)
[2022-11-04] VITALS (19 sets, daily range): BP systolic 121–123; BP diastolic 70–73; PULSE 62–82; RESP 13–20; TEMP 36.6–36.9; O2SAT 89–94
[2022-11-04] MEDS: IPRATROPIUM/ALBUTEROL SULFATE 3 ML AMPUL.NEB IH ×2 (04:09→11:08)
[2022-11-04 05:40] LABS: Basophils Percent Auto 0.1 % (0.2-2.0); Eosinophils Percent Auto 0.2 % (0.9-7.0); Hematocrit 31.6 % (42.0-54.0); Hemoglobin 10.9 g/dL (14.0-18.0); Immature Granulocytes Abs Auto 0.54 10^3/uL (0.00-0.03); Immature Granulocytes Pct Auto 6.7 % (0.0-0.5); Lymphocytes Absolute Auto 0.7 10^3/uL (1.2-3.8); Lymphocytes Percent Auto 9.1 % (20.5-60.0); Mean Corpuscular HGB Conc 34.5 g/dL (29.9-35.2); Mean Corpuscular Hemoglobin 31.2 pg (25.9-34.0); Mean Corpuscular Volume 90.5 fL (80.0-94.0); Mean Platelet Volume 9.4 fL (9.5-13.5); Monocytes Absolute Auto 0.6 10^3/uL (0.3-0.8); Monocytes Percent Auto 7.7 % (1.7-12.0); Neutrophils Absolute Auto 6.1 10^3/uL (1.4-6.5); Neutrophils Percent Auto 76.2 % (43.0-75.0); Platelet Count 227 10^3/uL (150-450); Red Blood Count 3.49 10^6/uL (4.70-6.10); Red Cell Distribution Width 18.1 % (11.0-15.0)
[2022-11-04 05:59] LABS: Alanine Aminotransferase 15 U/L (16-63); Albumin Globulin Ratio 0.7; Albumin Level 2.5 g/dL (3.4-5.0); Alkaline Phosphatase 72 U/L (46-116); Anion Gap 9.3; Aspartate Amino Transferase 20 U/L (15-37); BUN Creatinine Ratio 21.3; Bilirubin Total 0.7 mg/dL (0.2-1.0); Calcium 7.7 mg/dL (8.5-10.1); Carbon Dioxide 32.9 mmol/L (21.0-32.0); Chloride 93 mmol/L (98-107); Estimated GFR (African America >60 (>=60); Estimated GFR (Non-African Ame >60 (>=60); Globulin 3.7 g/dL; Glucose 124 mg/dL (74-106); Potassium 3.2 mmol/L (3.5-5.1); Sodium 132 mmol/L (136-145); Total Protein 6.2 g/dL (6.4-8.2)
[2022-11-04 06:06] LABS: Magnesium 1.8 mg/dL (1.8-2.4)
--- NOTE | 2022-11-04 07:27 | P.ON_ITS ---
Date of procedure: 11/04/22 Anesthesia: MAC
--- NOTE | 2022-11-04 07:27 | W.PM.PROCNOT ---
Date of procedure: 11/04/22 Anesthesia: MAC
--- NOTE | 2022-11-04 07:44 | P.DS_ITS ---
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: Plan palpitations, respiratory distress, acute hypoxia, hypotension, leukocytosis secondary to acute exacerbation of chronic atrial fibrillation secondary to LLL pneumonia and resulting in 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 Atrial fibrillation with rapid ventricular response, initially treated with Cardizem with good improvement, changed to orals, patient also had left pleural effusion this is likely related to metastatic melanoma, that was drained yesterday, BNP is higher today, supplemental oxygen is still at 4 L, unable to improve despite significant diuresis and significant left pleural fluid drainage of 1600 cc. Discussed case with cardiology and with patient and patient is agreeable to be transferred to [facility] for heart cath and cardioversion. Discussed with cardiology later this morning. Plan to transfer to [facility] Status at Discharge Functional status at discharge: uses cane/walker Overall status at discharge: patient is not back to baseline Time Spent with Patient Time attestation: Total time spent providing and/or coordinating discharge services: Exam Constitutional Vital Signs - 24 hr 11/03/22 09:46 11/03/22 11:34 11/03/22 11:37 Temperature Pulse Rate 68 Pulse Rate [Monitor] Pulse Rate [Right Dorsalis Pedis] Respiratory Rate Blood Pressure Blood Pressure [Left Arm] Pulse Oximetry 90 L 82 L 93 L Oxygen Delivery Method Room Air Nasal Cannula Oxygen Delivery Flow Rate 4 11/03/22 11:54 11/03/22 11:54 11/03/22 11:54 Temperature 98.1 F Pulse Rate 74 68 Pulse Rate [Monitor] Pulse Rate [Right Dorsalis Pedis] 70 Respiratory Rate 18 18 Blood Pressure Blood Pressure [Left Arm] 119/79 Pulse Oximetry 93 L 88 L Oxygen Delivery Method Nasal Cannula Oxygen Delivery Flow Rate 4 11/03/22 13:43 11/03/22 15:28 11/03/22 16:15 Temperature Pulse Rate 70 Pulse Rate [Monitor] Pulse Rate [Right Dorsalis Pedis] Respiratory Rate 18 Blood Pressure Blood Pressure [Left Arm] Pulse Oximetry 91 L 94 L 91 L Oxygen Delivery Method Nasal Cannula Nasal Cannula Oxygen Delivery Flow Rate 4 4 11/03/22 16:00 11/03/22 16:00 11/03/22 17:42 Temperature Pulse Rate 70 70 Pulse Rate [Monitor] Pulse Rate [Right Dorsalis Pedis] 70 Respiratory Rate 18 Blood Pressure Blood Pressure [Left Arm] Pulse Oximetry 91 L 91 L Oxygen Delivery Method Oxygen Delivery Flow Rate 11/03/22 18:22 11/03/22 19:40 11/03/22 19:45 Temperature 98.1 F Pulse Rate 70 91 H Pulse Rate [Monitor] 91 H Pulse Rate [Right Dorsalis Pedis] Respiratory Rate 18 Blood Pressure Blood Pressure [Left Arm] 119/79 Pulse Oximetry 91 L Oxygen Delivery Method Nasal Cannula Oxygen Delivery Flow Rate 4 11/03/22 08:00 11/03/22 08:30 11/03/22 09:00 Temperature Pulse Rate 81 83 83 Pulse Rate [Monitor] Pulse Rate [Right Dorsalis Pedis] Respiratory Rate 18 27 H 33 H Blood Pressure Blood Pressure [Left Arm] Pulse Oximetry Oxygen Delivery Method Oxygen Delivery Flow Rate 11/03/22 09:30 11/03/22 10:00 11/03/22 10:30 Temperature Pulse Rate 68 64 Pulse Rate [Monitor] Pulse Rate [Right Dorsalis Pedis] Respiratory Rate 19 17 Blood Pressure Blood Pressure [Left Arm] Pulse Oximetry 88 L Oxygen Delivery Method Oxygen Delivery Flow Rate 11/03/22 11:00 11/03/22 11:30 11/03/22 11:53 Temperature Pulse Rate 66 Pulse Rate [Monitor] Pulse Rate [Right Dorsalis Pedis] Respiratory Rate 13 Blood Pressure 119/79 Blood Pressure [Left Arm] Pulse Oximetry 90 L 93 L Oxygen Delivery Method Oxygen Delivery Flow Rate 11/03/22 11:53 11/03/22 11:53 11/03/22 12:00 Temperature Pulse Rate 76 67 Pulse Rate [Monitor] Pulse Rate [Right Dorsalis Pedis] Respiratory Rate 23 13 Blood Pressure 119/79 Blood Pressure [Left Arm] Pulse Oximetry 84 L Oxygen Delivery Method Oxygen Delivery Flow Rate 11/03/22 12:30 11/03/22 13:00 11/03/22 13:30 Temperature Pulse Rate 75 83 82 Pulse Rate [Monitor] Pulse Rate [Right Dorsalis Pedis] Respiratory Rate 32 H 8 L 18 Blood Pressure Blood Pressure [Left Arm] Pulse Oximetry Oxygen Delivery Method Oxygen Delivery Flow Rate 11/03/22 14:00 11/03/22 14:10 11/03/22 14:10 Temperature Pulse Rate 78 72 Pulse Rate [Monitor] Pulse Rate [Right Dorsalis Pedis] Respiratory Rate 11 L 14 Blood Pressure 128/79 H Blood Pressure [Left Arm] Pulse Oximetry Oxygen Delivery Method Oxygen Delivery Flow Rate 11/03/22 14:10 11/03/22 14:30 11/03/22 15:00 Temperature Pulse Rate 96 H 78 Pulse Rate [Monitor] Pulse Rate [Right Dorsalis Pedis] Respiratory Rate 19 17 Blood Pressure 128/79 H Blood Pressure [Left Arm] Pulse Oximetry 89 L Oxygen Delivery Method Oxygen Delivery Flow Rate 11/03/22 15:30 11/03/22 16:00 11/03/22 16:30 Temperature Pulse Rate 84 88 99 H Pulse Rate [Monitor] Pulse Rate [Right Dorsalis Pedis] Respiratory Rate 18 15 22 Blood Pressure Blood Pressure [Left Arm] Pulse Oximetry 89 L Oxygen Delivery Method Oxygen Delivery Flow Rate 11/03/22 17:00 11/03/22 17:30 11/03/22 18:00 Temperature Pulse Rate 101 H 98 H 96 H Pulse Rate [Monitor] Pulse Rate [Right Dorsalis Pedis] Respiratory Rate Blood Pressure Blood Pressure [Left Arm] Pulse Oximetry Oxygen Delivery Method Oxygen Delivery Flow Rate 11/03/22 18:30 11/03/22 19:00 11/03/22 19:22 Temperature 98.4 F Pulse Rate 88 88 85 Pulse Rate [Monitor] Pulse Rate [Right Dorsalis Pedis] Respiratory Rate 16 Blood Pressure 107/71 Blood Pressure [Left Arm] Pulse Oximetry 91 L Oxygen Delivery Method Oxygen Delivery Flow Rate 4 11/03/22 19:22 11/03/22 19:30 11/03/22 21:15 Temperature Pulse Rate 85 85 91 H Pulse Rate [Monitor] Pulse Rate [Right Dorsalis Pedis] Respiratory Rate Blood Pressure Blood Pressure [Left Arm] Pulse Oximetry Oxygen Delivery Method Oxygen Delivery Flow Rate 11/03/22 22:19 11/03/22 22:00 11/03/22 22:00 Temperature Pulse Rate 83 108 H Pulse Rate [Monitor] Pulse Rate [Right Dorsalis Pedis] Respiratory Rate 18 Blood Pressure Blood Pressure [Left Arm] Pulse Oximetry 91 L 93 L Oxygen Delivery Method Nasal Cannula Oxygen Delivery Flow Rate 4 11/03/22 23:31 11/03/22 20:00 11/03/22 20:30 Temperature Pulse Rate 70 91 H 92 H Pulse Rate [Monitor] Pulse Rate [Right Dorsalis Pedis] Respiratory Rate Blood Pressure Blood Pressure [Left Arm] Pulse Oximetry 91 L Oxygen Delivery Method Oxygen Delivery Flow Rate 11/03/22 21:00 11/03/22 21:30 11/03/22 22:00 Temperature Pulse Rate 87 94 H 81 Pulse Rate [Monitor] Pulse Rate [Right Dorsalis Pedis] Respiratory Rate Blood Pressure Blood Pressure [Left Arm] Pulse Oximetry Oxygen Delivery Method Oxygen Delivery Flow Rate 11/03/22 22:30 11/03/22 23:00 11/03/22 23:18 Temperature 98.4 F Pulse Rate 69 75 70 Pulse Rate [Monitor] Pulse Rate [Right Dorsalis Pedis] Respiratory Rate 15 Blood Pressure 116/66 Blood Pressure [Left Arm] Pulse Oximetry 91 L Oxygen Delivery Method Oxygen Delivery Flow Rate 4 11/03/22 23:18 11/03/22 23:18 11/03/22 23:30 Temperature Pulse Rate 82 73 Pulse Rate [Monitor] Pulse Rate [Right Dorsalis Pedis] Respiratory Rate Blood Pressure 116/66 Blood Pressure [Left Arm] Pulse Oximetry 89 L Oxygen Delivery Method Oxygen Delivery Flow Rate 11/04/22 00:21 11/04/22 02:18 11/04/22 03:04 Temperature Pulse Rate 68 72 72 Pulse Rate [Monitor] Pulse Rate [Right Dorsalis Pedis] Respiratory Rate Blood Pressure Blood Pressure [Left Arm] Pulse Oximetry 94 L 90 L Oxygen Delivery Method Oxygen Delivery Flow Rate 11/04/22 00:00 11/04/22 00:30 11/04/22 01:00 Temperature Pulse Rate 72 74 76 Pulse Rate [Monitor] Pulse Rate [Right Dorsalis Pedis] Respiratory Rate Blood Pressure Blood Pressure [Left Arm] Pulse Oximetry Oxygen Delivery Method Oxygen Delivery Flow Rate 11/04/22 01:30 11/04/22 02:00 11/04/22 02:30 Temperature Pulse Rate 72 62 62 Pulse Rate [Monitor] Pulse Rate [Right Dorsalis Pedis] Respiratory Rate Blood Pressure Blood Pressure [Left Arm] Pulse Oximetry Oxygen Delivery Method Oxygen Delivery Flow Rate 11/04/22 03:00 11/04/22 03:12 11/04/22 03:12 Temperature 98.5 F Pulse Rate 72 79 71 Pulse Rate [Monitor] Pulse Rate [Right Dorsalis Pedis] Respiratory Rate 13 Blood Pressure 121/70 H Blood Pressure [Left Arm] Pulse Oximetry 93 L Oxygen Delivery Method Oxygen Delivery Flow Rate 11/04/22 04:11 11/04/22 05:07 11/04/22 07:00 Temperature Pulse Rate 62 75 70 Pulse Rate [Monitor] Pulse Rate [Right Dorsalis Pedis] Respiratory Rate 18 Blood Pressure Blood Pressure [Left Arm] Pulse Oximetry 91 L 92 L Oxygen Delivery Method Nasal Cannula Oxygen Delivery Flow Rate 4 11/04/22 07:34 Temperature 98.0 F Pulse Rate 82 Pulse Rate [Monitor] Pulse Rate [Right Dorsalis Pedis] Respiratory Rate 20 Blood Pressure Blood Pressure [Left Arm] 123/71 H Pulse Oximetry 92 L Oxygen Delivery Method Nasal Cannula Oxygen Delivery Flow Rate 4 Respiratory Common normals: abnormal respiratory effort Auscultation: crackles and diminished lung sounds Cardio Rhythm: abnormal rhythm GI Common normals: Normal to inspection, nondistended, normoactive bowel sounds present Neuro Common normals: oriented x3 and CN's II-XII intact bilaterally DS: Data Data Completed and Pending Labs on day of discharge: Labs from last 24 hours 11/04/22 11/04/22 04:53 04:35 WBC 8.0 RBC 3.49 L Hgb 10.9 L Hct 31.6 L MCV 90.5 MCH 31.2 MCHC 34.5 RDW 18.1 H Plt Count 227 MPV 9.4 L Neut % (Auto) 76.2 H Lymph % (Auto) 9.1 L [place] % (Auto) 7.7 Eos % (Auto) 0.2 L Baso % (Auto) 0.1 L Neut # (Auto) 6.1 Lymph # (Auto) 0.7 L [place] # (Auto) 0.6 Eos # (Auto) 0.0 Baso # (Auto) 0.0 Abs Immat Gran (auto) 0.54 H Imm/Tot Granulo (auto) 6.7 H Sodium 132 L Potassium 3.2 L Chloride 93 L Carbon Dioxide 32.9 H Anion Gap 9.3 BUN 23.0 H Creatinine 1.08 Est GFR ( Amer) >60 Est GFR (Non-Af Amer) >60 BUN/Creatinine Ratio 21.3 Glucose 124 H Calcium 7.7 L Magnesium 1.8 Total Bilirubin 0.7 AST 20 ALT 15 L Alkaline Phosphatase 72 NT-Pro-B Natriuret Pep 5699.0 H* Total Protein 6.2 L Albumin 2.5 L Globulin 3.7 Albumin/Globulin Ratio 0.7 Preliminary micro results at discharge 10/31/22 10:50 Blood Culture Result 1 - Preliminary Blood 10/31/22 10:45 Blood Culture Result 1 - Preliminary Blood Discharge Plan Discharge Disposition: Home, Self-Care Condition: Good Discharge Medications: New diltiazem HCl 240 mg Capsule,Extended Release 24hr 240 mg PO QD Qty: 30 11RF metoprolol tartrate 50 mg Tablet 50 mg PO BID Qty: 60 11RF levofloxacin 500 mg tablet 500 mg PO DAILY 10 Days Qty: 10 0RF Continued Eliquis 2.5 mg tablet 2.5 mg PO Q12H ferrous sulfate [FeroSul] 325 mg (65 mg iron) tablet 325 mg PO BID folic acid 1 mg tablet 1 mg PO .6 days week Rx Instructions: 1 mg orally 6 days per week. does not takeon day of methotrexate; hydralazine 50 mg tablet 50 mg PO Q12H lisinopril 40 mg tablet 40 mg PO .evening methotrexate sodium 2.5 mg tablet 10 mg PO .tuesday multivitamin [Daily Multi-Vitamin] Tablet 1 tab PO QAM aspirin 81 mg capsule 81 mg PO QDAY Forms: Portal Instructions
--- NOTE | 2022-11-04 08:10 | PM.PLPN ---
Progress Note: A&P Assessment and Plan (1) Pleural effusion, bilateral: Assessment and Plan: s/p left thoracentesis 11/04/2022, 1600mL out. Concern for malignant effusion; cytology sent. Right effusion moderately large, may need thoracentesis of that for symptom control as well. If recurrent effusions secondary to cancer, Pleurx catheter would be an option. 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 Prognosis appears poor. Unclear if patient is going to seek further treatment or not for cancer; if goals are to be comfortable, Hospice is reasonable. (3) Acute respiratory failure with hypoxemia: Assessment and Plan: Remains hypoxic requiring 4L/min. May never get off O2 if effusions are recurrent and further lung tissue is displaced by increasing number and size of mets. Plan Apparently, patient is being transferred to [facility] for cardiac catheterization... He will need monitored there for worsening effusions and may require thoracentesis of the right or repeat on the left if they increase in size. Subjective Subjective Interval history: 1600mL out from left thoracentesis yesterday, labs/etc. pending. Post op x-ray did not show any pneumothorax, with reduction in fluid. SpO2 improved afterwards from ~88% into the 90's after the procedure on 4L/min. Patient states he is breathing better. Exam Constitutional Vital Signs - 24 hr 11/03/22 09:46 11/03/22 11:34 11/03/22 11:37 Temperature Pulse Rate 68 Pulse Rate [Monitor] Pulse Rate [Right Dorsalis Pedis] Respiratory Rate Blood Pressure Blood Pressure [Left Arm] Pulse Oximetry 90 L 82 L 93 L Oxygen Delivery Method Room Air Nasal Cannula Oxygen Delivery Flow Rate 4 11/03/22 11:54 11/03/22 11:54 11/03/22 11:54 Temperature 98.1 F Pulse Rate 74 68 Pulse Rate [Monitor] Pulse Rate [Right Dorsalis Pedis] 70 Respiratory Rate 18 18 Blood Pressure Blood Pressure [Left Arm] 119/79 Pulse Oximetry 93 L 88 L Oxygen Delivery Method Nasal Cannula Oxygen Delivery Flow Rate 4 11/03/22 13:43 11/03/22 15:28 11/03/22 16:15 Temperature Pulse Rate 70 Pulse Rate [Monitor] Pulse Rate [Right Dorsalis Pedis] Respiratory Rate 18 Blood Pressure Blood Pressure [Left Arm] Pulse Oximetry 91 L 94 L 91 L Oxygen Delivery Method Nasal Cannula Nasal Cannula Oxygen Delivery Flow Rate 4 4 11/03/22 16:00 11/03/22 16:00 11/03/22 17:42 Temperature Pulse Rate 70 70 Pulse Rate [Monitor] Pulse Rate [Right Dorsalis Pedis] 70 Respiratory Rate 18 Blood Pressure Blood Pressure [Left Arm] Pulse Oximetry 91 L 91 L Oxygen Delivery Method Oxygen Delivery Flow Rate 11/03/22 18:22 11/03/22 19:40 11/03/22 19:45 Temperature 98.1 F Pulse Rate 70 91 H Pulse Rate [Monitor] 91 H Pulse Rate [Right Dorsalis Pedis] Respiratory Rate 18 Blood Pressure Blood Pressure [Left Arm] 119/79 Pulse Oximetry 91 L Oxygen Delivery Method Nasal Cannula Oxygen Delivery Flow Rate 4 11/03/22 08:30 11/03/22 09:00 11/03/22 09:30 Temperature Pulse Rate 83 83 68 Pulse Rate [Monitor] Pulse Rate [Right Dorsalis Pedis] Respiratory Rate 27 H 33 H 19 Blood Pressure Blood Pressure [Left Arm] Pulse Oximetry Oxygen Delivery Method Oxygen Delivery Flow Rate 11/03/22 10:00 11/03/22 10:30 11/03/22 11:00 Temperature Pulse Rate 64 66 Pulse Rate [Monitor] Pulse Rate [Right Dorsalis Pedis] Respiratory Rate 17 13 Blood Pressure Blood Pressure [Left Arm] Pulse Oximetry 88 L Oxygen Delivery Method Oxygen Delivery Flow Rate 11/03/22 11:30 11/03/22 11:53 11/03/22 11:53 Temperature Pulse Rate 76 Pulse Rate [Monitor] Pulse Rate [Right Dorsalis Pedis] Respiratory Rate 23 Blood Pressure 119/79 Blood Pressure [Left Arm] Pulse Oximetry 90 L 93 L Oxygen Delivery Method Oxygen Delivery Flow Rate 11/03/22 11:53 11/03/22 12:00 11/03/22 12:30 Temperature Pulse Rate 67 75 Pulse Rate [Monitor] Pulse Rate [Right Dorsalis Pedis] Respiratory Rate 13 32 H Blood Pressure 119/79 Blood Pressure [Left Arm] Pulse Oximetry 84 L Oxygen Delivery Method Oxygen Delivery Flow Rate 11/03/22 13:00 11/03/22 13:30 11/03/22 14:00 Temperature Pulse Rate 83 82 78 Pulse Rate [Monitor] Pulse Rate [Right Dorsalis Pedis] Respiratory Rate 8 L 18 11 L Blood Pressure Blood Pressure [Left Arm] Pulse Oximetry Oxygen Delivery Method Oxygen Delivery Flow Rate 11/03/22 14:10 11/03/22 14:10 11/03/22 14:10 Temperature Pulse Rate 72 Pulse Rate [Monitor] Pulse Rate [Right Dorsalis Pedis] Respiratory Rate 14 Blood Pressure 128/79 H 128/79 H Blood Pressure [Left Arm] Pulse Oximetry 89 L Oxygen Delivery Method Oxygen Delivery Flow Rate 11/03/22 14:30 11/03/22 15:00 11/03/22 15:30 Temperature Pulse Rate 96 H 78 84 Pulse Rate [Monitor] Pulse Rate [Right Dorsalis Pedis] Respiratory Rate 19 17 18 Blood Pressure Blood Pressure [Left Arm] Pulse Oximetry Oxygen Delivery Method Oxygen Delivery Flow Rate 11/03/22 16:00 11/03/22 16:30 11/03/22 17:00 Temperature Pulse Rate 88 99 H 101 H Pulse Rate [Monitor] Pulse Rate [Right Dorsalis Pedis] Respiratory Rate 15 22 Blood Pressure Blood Pressure [Left Arm] Pulse Oximetry 89 L Oxygen Delivery Method Oxygen Delivery Flow Rate 11/03/22 17:30 11/03/22 18:00 11/03/22 18:30 Temperature Pulse Rate 98 H 96 H 88 Pulse Rate [Monitor] Pulse Rate [Right Dorsalis Pedis] Respiratory Rate Blood Pressure Blood Pressure [Left Arm] Pulse Oximetry Oxygen Delivery Method Oxygen Delivery Flow Rate 11/03/22 19:00 11/03/22 19:22 11/03/22 19:22 Temperature 98.4 F Pulse Rate 88 85 85 Pulse Rate [Monitor] Pulse Rate [Right Dorsalis Pedis] Respiratory Rate 16 Blood Pressure 107/71 Blood Pressure [Left Arm] Pulse Oximetry 91 L Oxygen Delivery Method Oxygen Delivery Flow Rate 4 11/03/22 19:30 11/03/22 21:15 11/03/22 22:19 Temperature Pulse Rate 85 91 H 83 Pulse Rate [Monitor] Pulse Rate [Right Dorsalis Pedis] Respiratory Rate Blood Pressure Blood Pressure [Left Arm] Pulse Oximetry 91 L Oxygen Delivery Method Oxygen Delivery Flow Rate 11/03/22 22:00 11/03/22 22:00 11/03/22 23:31 Temperature Pulse Rate 108 H 70 Pulse Rate [Monitor] Pulse Rate [Right Dorsalis Pedis] Respiratory Rate 18 Blood Pressure Blood Pressure [Left Arm] Pulse Oximetry 93 L 91 L Oxygen Delivery Method Nasal Cannula Oxygen Delivery Flow Rate 4 11/03/22 20:00 11/03/22 20:30 11/03/22 21:00 Temperature Pulse Rate 91 H 92 H 87 Pulse Rate [Monitor] Pulse Rate [Right Dorsalis Pedis] Respiratory Rate Blood Pressure Blood Pressure [Left Arm] Pulse Oximetry Oxygen Delivery Method Oxygen Delivery Flow Rate 11/03/22 21:30 11/03/22 22:00 11/03/22 22:30 Temperature Pulse Rate 94 H 81 69 Pulse Rate [Monitor] Pulse Rate [Right Dorsalis Pedis] Respiratory Rate Blood Pressure Blood Pressure [Left Arm] Pulse Oximetry Oxygen Delivery Method Oxygen Delivery Flow Rate 11/03/22 23:00 11/03/22 23:18 11/03/22 23:18 Temperature 98.4 F Pulse Rate 75 70 82 Pulse Rate [Monitor] Pulse Rate [Right Dorsalis Pedis] Respiratory Rate 15 Blood Pressure 116/66 Blood Pressure [Left Arm] Pulse Oximetry 91 L Oxygen Delivery Method Oxygen Delivery Flow Rate 4 11/03/22 23:18 11/03/22 23:30 11/04/22 00:21 Temperature Pulse Rate 73 68 Pulse Rate [Monitor] Pulse Rate [Right Dorsalis Pedis] Respiratory Rate Blood Pressure 116/66 Blood Pressure [Left Arm] Pulse Oximetry 89 L 94 L Oxygen Delivery Method Oxygen Delivery Flow Rate 11/04/22 02:18 11/04/22 03:04 11/04/22 00:00 Temperature Pulse Rate 72 72 72 Pulse Rate [Monitor] Pulse Rate [Right Dorsalis Pedis] Respiratory Rate Blood Pressure Blood Pressure [Left Arm] Pulse Oximetry 90 L Oxygen Delivery Method Oxygen Delivery Flow Rate 11/04/22 00:30 11/04/22 01:00 11/04/22 01:30 Temperature Pulse Rate 74 76 72 Pulse Rate [Monitor] Pulse Rate [Right Dorsalis Pedis] Respiratory Rate Blood Pressure Blood Pressure [Left Arm] Pulse Oximetry Oxygen Delivery Method Oxygen Delivery Flow Rate 11/04/22 02:00 11/04/22 02:30 11/04/22 03:00 Temperature Pulse Rate 62 62 72 Pulse Rate [Monitor] Pulse Rate [Right Dorsalis Pedis] Respiratory Rate Blood Pressure Blood Pressure [Left Arm] Pulse Oximetry Oxygen Delivery Method Oxygen Delivery Flow Rate 11/04/22 03:12 11/04/22 03:12 11/04/22 04:11 Temperature 98.5 F Pulse Rate 79 71 62 Pulse Rate [Monitor] Pulse Rate [Right Dorsalis Pedis] Respiratory Rate 13 18 Blood Pressure 121/70 H Blood Pressure [Left Arm] Pulse Oximetry 93 L 91 L Oxygen Delivery Method Nasal Cannula Oxygen Delivery Flow Rate 4 11/04/22 05:07 11/04/22 07:00 11/04/22 07:34 Temperature 98.0 F Pulse Rate 75 70 82 Pulse Rate [Monitor] Pulse Rate [Right Dorsalis Pedis] Respiratory Rate 20 Blood Pressure Blood Pressure [Left Arm] 123/71 H Pulse Oximetry 92 L 92 L Oxygen Delivery Method Nasal Cannula Oxygen Delivery Flow Rate 4
[2022-11-04] MEDS: CEFTRIAXONE 1,000 MG in 0.9 % SODIUM CHLORIDE 50 ML 50 MG IV (09:26)
[2022-11-04] MEDS: DILTIAZEM HCL 240 MG CAP.ER.24H PO (09:27)
[2022-11-04] MEDS: LISINOPRIL 20 MG TABLET 40 MG PO (09:27)
[2022-11-04] MEDS: METOPROLOL TARTRATE 50 MG TABLET PO (09:28)
[2022-11-04] MEDS: POTASSIUM CHLORIDE 10 MEQ ER TABLET 20 MEQ PO (09:28)
[2022-11-04] MEDS: LEVOFLOXACIN IN DEXTROSE 5 % 750 MG/150 ML IV.SOLN 100 MG IV (09:28)
[2022-11-04 12:09] LABS: Glucose, Body Fluid 111 mg/dL (.); LD, Body Fluid 138 IU/L (.); Protein, Body Fluid 3.4 g/dL (.); Triglycerides, Fluid 20 mg/dL (Not Estab.)
[2022-11-04 13:07] LABS: Clarity, Serous Slightly hazy (Clear); Color, Serous Yellow (.); Eosinophils, Serous 0 % (Not Estab.); Lining Cells, Serous 20 % (Not Estab.); Lymphocytes, Serous 64 % (Not Estab.); Macrophages, Serous 16 % (Not Estab.); Neut, Serous 0 % (0-24); Nucleated Cells, Serous 733 /mm3 (0-499); RBC, Serous 6000 /uL (Not Estab.)
[2022-11-05 13:09] LABS: Amylase, Body Fluid 13 U/L (.)
[2022-11-08 17:09] LABS: pH, Body Fluid 7.6 (Not Estab.)
== END 2022-11-04 12:53 | disposition short-term general hospital (02) | DRG 180 ==
LOC: ER 12:15 → ICU 12:58 → ER 13:56 → ICU 11-01 07:05
PROVIDERS: Internal Medicine; Internal Medicine Interventional Cardiology; Admitting Provider Internal Medicine; Emergency Provider Emergency Medicine; PCP Family Medicine; Visit Provider Family Medicine
DX: C78.02 Secondary malignant neoplasm of left lung (principal); I50.41 Acute combined systolic (congestive) and diastolic (congestive) heart failure; J18.9 Pneumonia, unspecified organism; I48.20 Chronic atrial fibrillation, unspecified; E87.1 Hypo-osmolality and hyponatremia; E44.0 Moderate protein-calorie malnutrition; C83.10 Mantle cell lymphoma, unspecified site; J91.8 Pleural effusion in other conditions classified elsewhere; C78.01 Secondary malignant neoplasm of right lung; I11.0 Hypertensive heart disease with heart failure; R09.02 Hypoxemia; E83.51 Hypocalcemia; D50.9 Iron deficiency anemia, unspecified; I95.9 Hypotension, unspecified; C67.9 Malignant neoplasm of bladder, unspecified; Z68.23 Body mass index [BMI] 23.0-23.9, adult; Z87.891 Personal history of nicotine dependence; Z79.899 Other long term (current) drug therapy; Z79.01 Long term (current) use of anticoagulants; Z79.82 Long term (current) use of aspirin; Z79.620 Long term (current) use of immunosuppressive biologic; Z88.2 Allergy status to sulfonamides; Z82.3 Family history of stroke; Z99.89 Dependence on other enabling machines and devices; Z20.822 Contact with and (suspected) exposure to COVID-19
CPT/HCPCS: 36415; 36600; 71045; 71046; 71275; 80053; 80162; 82150; 82805; 82945; 83615; 83735; 83880; 83986; 84157; 84478; 84484; 85025; 85610; 85730; 87040; 87070; 87635; 87811; 88112; 88305; 88341; 88342; 89051; 93005; 93306; 94640; 94761; 96365; 96366; 96368; 96375; 96376; 97110; 97161; 97165; 97530; 99285; Q9967

== ENCOUNTER 2022-11-08 23:27 | Emergency (ER) | payer MEDICARE, OTHER, SELFPAY ==
[2022-11-08 23:34] VITALS: BP 115/76; PULSE 92; RESP 18; TEMP 36.8; O2SAT 90; BMI 23.7
[2022-11-09 00:26] LABS: Hematocrit 30.5 % (42.0-54.0); Hemoglobin 10.5 g/dL (14.0-18.0); Mean Corpuscular HGB Conc 34.4 g/dL (29.9-35.2); Mean Corpuscular Hemoglobin 31.3 pg (25.9-34.0); Mean Platelet Volume 9.2 fL (9.5-13.5); Platelet Count 257 10^3/uL (150-450); Red Blood Count 3.35 10^6/uL (4.70-6.10); Red Cell Distribution Width 18.6 % (11.0-15.0); White Blood Count 15.1 10^3/uL (4.0-11.0)
[2022-11-09 00:39] LABS: Alanine Aminotransferase 19 U/L (16-63); Albumin Globulin Ratio 0.7; Albumin Level 2.6 g/dL (3.4-5.0); Alkaline Phosphatase 76 U/L (46-116); Anion Gap 10.4; Aspartate Amino Transferase 20 U/L (15-37); BUN Creatinine Ratio 29.5; Calcium 7.5 mg/dL (8.5-10.1); Carbon Dioxide 28.3 mmol/L (21.0-32.0); Chloride 92 mmol/L (98-107); Estimated GFR (African America 52 (>=60); Estimated GFR (Non-African Ame 43 (>=60); Globulin 3.6 g/dL; Glucose 125 mg/dL (74-106); Potassium 3.7 mmol/L (3.5-5.1); Sodium 127 mmol/L (136-145); Total Protein 6.2 g/dL (6.4-8.2)
[2022-11-09 00:53] LABS: Anisocytosis 3+; Band Neutrophils Absolute 1.5 10^3/uL (0.0-0.3); Eosinophils Absolute Manual 0.15 10^3/uL (0.00-0.70); Monocytes Absolute Manual 0.15 10^3/uL (0.30-0.80); Poikilocytosis 3+; Segmented Neut Absolute Manual 12.83 10^3/uL (1.4-6.5)
--- NOTE | 2022-11-09 00:59 | ED.GENADUL1 ---
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 The patient also recently diagnosed with pneumonia when he was transferred to the less than ten days ago to another facility No abdominal pain or coughing Related Data Home Medications Medication Instructions Recorded Confirmed apixaban 2.5 mg tablet (Eliquis) 2.5 mg PO Q12H afib 10/22/22 10/31/22 aspirin 81 mg capsule 81 mg PO QDAY 10/22/22 10/31/22 ferrous sulfate 325 mg (65 mg 325 mg PO BID 10/22/22 10/31/22 iron) tablet (FeroSul) folic acid 1 mg tablet 1 mg PO .6 days week 10/22/22 10/31/22 hydralazine 50 mg tablet 50 mg PO Q12H 10/22/22 10/31/22 lisinopril 40 mg tablet 40 mg PO .evening 10/22/22 10/31/22 methotrexate sodium 2.5 mg tablet 10 mg PO .tuesday10/22/22 10/31/22 multivitamin (Daily Multi-Vitamin 1 tab PO QAM 10/22/22 10/31/22 tablet) Previous Rx's Medication Instructions Recorded diltiazem HCl 240 mg 240 mg PO QD #30 caps 11/02/22 capsule,extended release 24 hr metoprolol tartrate 50 mg tablet 50 mg PO BID #60 tabs 11/02/22 nitrofurantoin 100 mg PO BID 5 days #10 caps 11/09/22 monohydrate/macrocrystals 100 mg capsule (Macrobid) Allergies Allergy/AdvReac Type Severity Reaction Status Date / Time Sulfa (Sulfonamide Allergy Unknown Verified 11/08/22 23:42 Antibiotics) BACTRIM Allergy Unknown Uncoded 11/08/22 23:42 Review of Systems ROS Status of ROS 10 or more systems reviewed and unremarkable except as noted in history and below [facility] Medical History (Updated 11/09/22 @ 03:19 by Sharon Leung MD) Surgical History (Updated 10/31/22 @ 14:16 by Na Le) Family History (Updated 10/31/22 @ 14:17 by Na Le) Father Family history of stroke Social History (Updated 10/31/22 @ 14:18 by Na Le) Within the past year, how often did you have a drink containing alcohol: never Within the past year, how often did you have six or more drinks on one occasion: never Score interpretation: A score less than 4 is consistent with normal alcohol consumption. Smoking status: Former smoker Non-prescribed substance use: denies use Previous occupational history: factory Known occupational exposures/hazards: No Highest level of school completed/degree received: high school graduate Exam Narrative Exam Narrative: Nurses notes and vital signs reviewed and patient is not hypoxic. General: Well-appearing and in no apparent distress. Skin: Warm, dry, no pallor noted. No rash. Head: Normocephalic, atraumatic. Neck: Supple, non-tender. Eye: Pupils are equal, round and EOMI. No scleral icterus. Ears, Nose, Mouth, and Throat: TM are clear, no nasal mucosal hypertrophy. Oral mucosa is moist, no posterior oropharynx erythema, uvula is mid-line Cardiovascular: Regular Rate and Rhythm without murmur, gallop or rub. Respiratory: No accessory muscle use or respiratory distress. Lungs are clear to auscultation, no wheezing, rales or rhonchi Chest Wall: no tenderness Back: No midline thoracic or lumbar vertebral tenderness. No CVA tenderness Musculoskeletal: normal ROM, no calf or popliteal tenderness, no lower extremity edema/swelling GI: Abdomen is soft, non-distended. Normal bowel sounds. No masses appreciated. No tenderness to palpation. No rebound, guarding, or rigidity noted. Neurological: A&O x4. No cranial nerve dysfunction observed. No truncal ataxia. Moves all extremities. Sensation intact. Psychiatric: Cooperative and interactive. Normal mood and affect. Constitutional Vital Signs - 24 hr 11/08/22 23:34 Temperature 98.2 F Pulse Rate [Monitor] 92 H Respiratory Rate 18 Blood Pressure [Left Arm] 115/76 Pulse Oximetry 90 L Oxygen Delivery Method Nasal Cannula Oxygen Delivery Flow Rate 4 Course Vital Signs Vital signs: Vital Signs Temperature 98.2 F 11/08/22 23:34 Pulse Rate 92 H 11/08/22 23:34 Respiratory Rate 18 11/08/22 23:34 Blood Pressure 115/76 11/08/22 23:34 Pulse Oximetry 90 L 11/08/22 23:34 Oxygen Delivery Method Nasal Cannula 11/08/22 23:34 Oxygen Delivery Flow Rate 4 11/08/22 23:34 Temperature 98.2 F 11/08/22 23:34 Pulse Rate 92 H 11/08/22 23:34 Respiratory Rate 18 11/08/22 23:34 Blood Pressure 115/76 11/08/22 23:34 Pulse Oximetry 90 L 11/08/22 23:34 Oxygen Delivery Method Nasal Cannula 11/08/22 23:34 Oxygen Delivery Flow Rate 4 11/08/22 23:34 Medical Decision Making MDM Narrative Medical decision making narrative: the patient CBC shows a leukocytosis there is no other signs of infection and the patient main reasons, he wasn't decreased urination there was no tachycardia and no fever and no decreased mouth intake. the mentioned that today he recently was started on diuretic and he is not taking enough water. The urine shows ten wbc the patient will be covered with Macrobid for possible urinary infection although less likely CT abdomen and pelvis shows multiple kidney stones with no hydronephrosis other findings are related to possible metastatic tumor right now the patient gave us a good urine sample after he had a 500 mL of normal saline patient to increase by mouth intake and follow up with his primary care doctor within a week The patient is to followup with primary care physician in next 2-3 days or to return to the emergency department should any of the signs or symptoms worsen or new symptoms develop. The patient agrees with the following Diagnosis and Treatment plan and the patient will be discharged home. Lab Data Labs: Lab Results 11/08/22 11/09/22 11/09/22 Range/Units 00:07 02:20 02:36 WBC 15.1 H (4.0-11.0) 10^3/uL RBC 3.35 L (4.70-6.10) 10^6/uL Hgb 10.5 L (14.0-18.0) g/dL Hct 30.5 L (42.0-54.0) % MCV 91.0 (80.0-94.0) fL MCH 31.3 (25.9-34.0) pg MCHC 34.4 (29.9-35.2) g/dL RDW 18.6 H (11.0-15.0) % Plt Count 257 (150-450) 10^3/uL MPV 9.2 L (9.5-13.5) fL Seg Neuts % (Manual) 85.0 Band Neutrophils % 10.0 H (0-5) % Lymphocytes % (Manual) 2.0 L (20.5-60.0) % Atypical Lymphs % (Man) 1.0 % Monocytes % (Manual) 1.0 L (1.7-12.0) % Eosinophils % (Manual) 1.0 (0.9-7.0) % Basophils % (Manual) 0.0 L (0.2-2.0) % Neutrophils # (Manual) 12.83 H (1.4-6.5) 10^3/uL Band Neutrophils # 1.5 H (0.0-0.3) 10^3/uL Lymphocytes # (Manual) 0.30 L (1.20-3.80) 10^3/uL Monocytes # (Manual) 0.15 L (0.30-0.80) 10^3/uL Eosinophils # (Manual) 0.15 (0.00-0.70) 10^3/uL Basophils # (Manual) 0.00 (0.00-0.10) 10^3/uL Poikilocytosis 3+ Anisocytosis 3+ Sodium 127 L (136-145) mmol/L Potassium 3.7 (3.5-5.1) mmol/L Chloride 92 L (98-107) mmol/L Carbon Dioxide 28.3 (21.0-32.0) mmol/L Anion Gap 10.4 BUN 46.0 H (7.0-18.0) mg/dL Creatinine 1.56 H (0.70-1.30) mg/dL Est GFR ( Amer) 52 L (>=60) Est GFR (Non-Af Amer) 43 L (>=60) BUN/Creatinine Ratio 29.5 Glucose 125 H (74-106) mg/dL Calcium 7.5 L (8.5-10.1) mg/dL Total Bilirubin 1.0 (0.2-1.0) mg/dL AST 20 (15-37) U/L ALT 19 (16-63) U/L Alkaline Phosphatase 76 (46-116) U/L Total Protein 6.2 L (6.4-8.2) g/dL Albumin 2.6 L (3.4-5.0) g/dL Globulin 3.6 g/dL Albumin/Globulin Ratio 0.7 Urine Color Yellow (YELLOW) Urine Clarity Clear (CLEAR) Urine pH 5.0 (5.0-9.0) Ur Specific [place] 1.020 (1.005-1.025) Urine Protein 30 A (NEG/TRACE) mg/dL Urine Glucose (UA) Negative (NEGATIVE) mg/dL Urine Ketones Trace A (NEGATIVE) mg/dL Urine Occult Blood Trace-i (NEGATIVE) Urine Nitrite Negative (NEGATIVE) Urine Bilirubin Negative (NEGATIVE) Urine Urobilinogen 0.2 (0.2-1.0) EU/dL Ur Leukocyte Esterase Negative (NEGATIVE) Urine RBC 2-5 A (0-2) #/HPF Urine WBC 5-10 A (NONE SEEN) #/HPF Ur Squamous Epith Cells Few A (NONE/RARE) #/LPF Urine Crystals None seen (None Seen) #/HPF Urine Bacteria Moderate A (NONE SEEN) #/HPF Urine Casts Seen A (NONE SEEN) #/LPF Hyaline Casts Many RBC Casts Few Urine Mucus Moderate A (NONE SEEN) Ur Culture Indicated? Yes Discharge Plan Discharge Chief Complaint: Urogenital-Male Clinical Impression: Acute kidney injury, Acute UTI, Dehydration Patient Disposition: Home, Self-Care Time of Disposition Decision: 03:17 Prescriptions / Home Meds: New nitrofurantoin monohyd/m-cryst [Macrobid] 100 mg capsule 100 mg PO BID 5 Days Qty: 10 0RF Rx Instructions: must administer with a meal/food Discontinued levofloxacin 500 mg tablet 500 mg PO DAILY 10 Days Qty: 10 0RF No Action Eliquis 2.5 mg tablet 2.5 mg PO Q12H ferrous sulfate [FeroSul] 325 mg (65 mg iron) tablet 325 mg PO BID folic acid 1 mg tablet 1 mg PO .6 days week Rx Instructions: 1 mg orally 6 days per week. does not takeon day of methotrexate; hydralazine 50 mg tablet 50 mg PO Q12H lisinopril 40 mg tablet 40 mg PO .evening methotrexate sodium 2.5 mg tablet 10 mg PO .tuesday multivitamin [Daily Multi-Vitamin] Tablet 1 tab PO QAM aspirin 81 mg capsule 81 mg PO QDAY diltiazem HCl 240 mg Capsule,Extended Release 24hr 240 mg PO QD Qty: 30 11RF metoprolol tartrate 50 mg Tablet 50 mg PO BID Qty: 60 11RF Instructions: Acute Kidney Injury (DC) Stand Alone Forms: Portal Instructions Referrals: Jeffrey Mcclure MD [Primary Care Provider] - 1 week
--- NOTE | 2022-11-09 01:20 | CT_ITS ---
[address] [address] Patient Name: TOBIN WONG MRN: [id number] date: 1935 Sex: M Assigned Patient Location: ER Current Patient Location: ER Accession/Order Number: [id number] Exam Date: 11/09/2022 01:24 Report Date: 11/09/2022 02:15 At the request of: DANIE MONTENEGRO Procedure: CT abdomen pelvis wo con EXAM: CT abdomen pelvis wo con HISTORY: acute kidney injury acute urinary retention COMPARISON: CT chest 11/03/2022 TECHNIQUE: Multiple axial views CT abdomen pelvis without IV contrast. Oral and sagittal reformats. FINDINGS: Visualized lung bases demonstrate extensive numerous metastatic lung nodules. Moderate left and small right pleural effusions with left lower lung consolidations. Visualized cardiac apex demonstrate mild anterior pericardial effusion measuring up to 4 mm thick. Borderline prominent heart size. Partially visualized extensive left coronary artery calcifications. Liver, gallbladder, pancreas, and spleen are unremarkable. Appendix is not seen. Multiple abdominal and retroperitoneal lymphadenopathy. For reference, central abdominal peritoneal numerous enlarged lymph nodes measuring up to 1.8 x 1.4 cm (image 85 series 3). Multiple bilateral left greater than right adrenal nodular lesions measuring up to an area of 3.5 cm at the left adrenal gland and 1.7 cm at the right adrenal gland. 13 mm left inferior renal stone. 8 mm right inferior renal stone. Adjacent 3 mm right inferior renal stone. A 3 mm right renal pelvic stone. No hydronephrosis. No perinephric fluid collection. Multiple bilateral 1-2 cm renal cystic foci/low-attenuation masses. Urinary bladder is underdistended. Moderate pelvic free fluid posterior to the urinary bladder. Prostate measures 4 cm transverse diameter. Multiple 3-4 mm calcified bodies at the central prostate region inseparable from the prostatic urethra. No evidence for bowel obstruction or free air. Heavy atherosclerotic calcifications of the visualized intra-abdominal aorta and bilateral common iliac arteries. Heavy atherosclerotic calcifications at the celiac and superior mesenteric artery origin. T12 vertebral body superior endplate Schmorl's nodes deformity. Multilevel lumbar spondylosis. 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 IMPRESSION: Bilateral renal stones without hydronephrosis or perinephric fluid collection. Multiple 3-4 mm calcified bodies at the central prostate inseparable from the prostatic urethra region. Correlate clinically and with urinalysis for any hematuria or any stones at this region. Prostate measures 4 cm transverse diameter. Moderate pelvic free fluid posterior to the urinary bladder. Multiple bilateral 1-2 cm renal cystic foci/low-attenuation masses. Findings are probably cysts although incompletely evaluate without contrast. Numerous metastatic lung nodules. Moderate left and small right pleural effusions with left lower lung consolidations. Borderline prominent heart size with mild anterior pericardial effusion. Multiple abdominal and retroperitoneal lymphadenopathy. Finding raises the concern for metastatic etiology. Multiple bilateral left greater than right adrenal nodular lesions measuring up to an area of 3.5 cm at the left adrenal gland and 1.7 cm at the right adrenal gland. Electronically authenticated by: JAY YOU Date: 11/09/2022 02:15
[2022-11-09] MEDS: 0.9 % SODIUM CHLORIDE 1,000 ML 500 ML IV (01:44)
[2022-11-09 02:34] LABS: Bilirubin Urine NEGATIVE (NEGATIVE); Blood Urine TRACE-I (NEGATIVE); Clarity Urine CLEAR (CLEAR); Color Urine YELLOW (YELLOW); Glucose Urine UA NEGATIVE (NEGATIVE); Ketones Urine TRACE mg/dL (NEGATIVE); Leukocyte Esterase Urine NEGATIVE (NEGATIVE); Nitrite Urine NEGATIVE (NEGATIVE); Protein Urine 30 mg/dL (NEG/TRACE); Urobilinogen Urine 0.2 EU/dL (0.2-1.0)
[2022-11-09 02:35] LABS: Urine Microscopic Indicated YES
[2022-11-09 02:44] LABS: Bacteria Urine MODERATE #/HPF (NONE SEEN); Mucus Urine MODERATE (NONE SEEN); Squamous Epithelial Cell Urine FEW #/LPF (NONE/RARE)
[2022-11-09 02:45] LABS: Cast Seen? SEEN #/LPF (NONE SEEN); Crystals Seen? None Seen #/HPF (None Seen); Hyaline Casts Urine MANY; Red Blood Cell Casts Urine FEW; Urine Culture Indicated YES
[2022-11-09] MEDS: NITROFURANTOIN MONOHYD/MAC-CRST 100 MG CAPSULE PO (03:46)
== END 2022-11-09 03:59 | disposition home or self-care (01) ==
PROVIDERS: Emergency Provider Emergency Medicine; PCP Family Medicine
DX: N39.0 Urinary tract infection, site not specified (principal); E86.0 Dehydration; N17.9 Acute kidney failure, unspecified; Z79.82 Long term (current) use of aspirin; Z79.899 Other long term (current) drug therapy; Z87.01 Personal history of pneumonia (recurrent); Z87.891 Personal history of nicotine dependence
CPT/HCPCS: 36415; 51798; 74176; 80053; 81003; 81015; 85007; 85025; 87086; 99284

== ENCOUNTER 2022-11-13 15:39 | Inpatient (IN) | payer MEDICARE, OTHER, SELFPAY ==
[2022-11-13] VITALS (36 sets, daily range): BP systolic 72–126; BP diastolic 57–89; PULSE 88–116; RESP 14–51; TEMP 35.9–36.6; O2SAT 78–95; BMI 26.4
--- NOTE | 2022-11-13 16:21 | ECG_ITS ---
The [facility] Test Date: 2022-11-13 Pat Name: TOBIN WONG Department: Room: - Gender: Male [employer]: : 1935 Requested By: BATSHEVA MACIAS Order Number: [id number] Reading MD: BATSHEVA MACIAS Measurements Intervals [place] Rate: 115 P: -11667 MT: -48267 QRS: 7 QRSD: 94 T: 111 QT: 328 QTc: 396 Interpretive Statements 54477 Atrial fibrillation with rapid ventricular response 7500 Abnormal QRS-T angle Non-Specific T wave inversion in aVL 9140 abnormal rhythm ECG Compared to ECG 11/01/2022 19:16:29 ST (T wave) deviation no longer present Possible ischemia no longer present Electronically Signed On 11-14-2022 8:18:14 EDT by BATSHEVA MACIAS
--- NOTE | 2022-11-13 16:21 | XR_ITS ---
The [address] [address] Patient Name: TOBIN WONG MRN: [id number] date: 1935 Sex: M Assigned Patient Location: ER Current Patient Location: Accession/Order Number: [id number] Exam Date: 11/13/2022 16:50 Report Date: 11/13/2022 18:05 At the request of: LETICIA NEWMAN Procedure: XR chest 1V EXAM: XR chest 1V REASON FOR EXAM: Male, 87 years, SOB. TECHNIQUE: A single AP view of the chest is performed. COMPARISON: 11/03/2022, CT 11/09/2022. FINDINGS: Cardiac monitoring leads project over the chest. There are innumerable small nodules throughout the lungs. The left pleural effusion has increased. Normal size heart. Normal mediastinum and yesika. Normal visualized pulmonary arteries. Normal visualized aortic arch and descending thoracic aorta. Normal visualized thoracic spine. Normal visualized ribs, clavicles, and shoulders. There is no demonstrated abnormality of the visualized soft tissue structures of the upper abdomen. IMPRESSION: Innumerable bilateral pulmonary nodules consistent with metastatic disease. Increasing left pleural effusion. Electronically authenticated by: TANG CELESTIN Date: 11/13/2022 18:05
--- NOTE | 2022-11-13 16:22 | ED.SOB1 ---
HPI - SOB/Dyspnea General Chief Complaint: Shortness of Breath/Dyspnea Stated Complaint: diff breathing Time Seen by Provider: 11/13/22 16:21 Source: patient and family Mode of arrival: Wheelchair Limitations: no limitations History of Present Illness HPI Narrative: 87-year-old male presents to the emergency department for shortness of breath. He and his are poor historians. It's not clear how long these been having the shortness of breath. She states that his legs have never been this swollen and that the left one started weeping. She's never seen that before either. She's not sure he's had congestive heart failure or not. She explains that at some point they drain fluid off of his long with a needle. He doesn't seem to be complaining of chest pain and it's not clear whether he's had a fever or not. Related Data Home Medications Medication Instructions Recorded Confirmed apixaban 2.5 mg tablet (Eliquis) 2.5 mg PO Q12H afib 10/22/22 10/31/22 aspirin 81 mg capsule 81 mg PO QDAY 10/22/22 10/31/22 ferrous sulfate 325 mg (65 mg 325 mg PO BID 10/22/22 10/31/22 iron) tablet (FeroSul) folic acid 1 mg tablet 1 mg PO .6 days week 10/22/22 10/31/22 hydralazine 50 mg tablet 50 mg PO Q12H 10/22/22 10/31/22 lisinopril 40 mg tablet 40 mg PO .evening 10/22/22 10/31/22 methotrexate sodium 2.5 mg tablet 10 mg PO .tuesday10/22/22 10/31/22 multivitamin (Daily Multi-Vitamin 1 tab PO QAM 10/22/22 10/31/22 tablet) Previous Rx's Medication Instructions Recorded diltiazem HCl 240 mg 240 mg PO QD #30 caps 11/02/22 capsule,extended release 24 hr metoprolol tartrate 50 mg tablet 50 mg PO BID #60 tabs 11/02/22 nitrofurantoin 100 mg PO BID 5 days #10 caps 11/09/22 monohydrate/macrocrystals 100 mg capsule (Macrobid) Allergies Allergy/AdvReac Type Severity Reaction Status Date / Time Sulfa (Sulfonamide Allergy Unknown Verified 11/08/22 23:42 Antibiotics) BACTRIM Allergy Unknown Uncoded 11/08/22 23:42 Review of Systems ROS Narrative not obtainable, age PFSH PFSH Medical History (Updated 11/13/22 @ 19:03 by Papo Brock MD) Surgical History (Updated 10/31/22 @ 14:16 by Na Le) Family History (Updated 10/31/22 @ 14:17 by Na Le) Father Family history of stroke Social History (Updated 10/31/22 @ 14:18 by Na Le) Within the past year, how often did you have a drink containing alcohol: never Within the past year, how often did you have six or more drinks on one occasion: never Score interpretation: A score less than 4 is consistent with normal alcohol consumption. Smoking status: Former smoker Non-prescribed substance use: denies use Previous occupational history: factory Known occupational exposures/hazards: No Highest level of school completed/degree received: high school graduate Exam Narrative Exam Narrative: Nurses note and vital signs reviewed and patient is not hypoxic. General: The patient dyspneic. He is sitting upright on the cart. Skin: Warm, dry, no pallor noted. Head: Normocephalic, atraumatic Eye: Normal conjunctiva, no drainage Ears, Nose, Mouth, and Throat: oral mucosa is moist. Nares patent. Cardiovascular: tachycardic, irregular Respiratory: he appears dyspneic. Anterior auscultation shows equal breath sounds Back: non-tender GI: soft and nontender Musculoskeletal: bilateral pitting edema present. There is weeping from the skin. Neurological: A&O, normal speech Psychiatric: Cooperative Constitutional Vital Signs - 24 hr 11/13/22 16:03 11/13/22 16:48 11/13/22 16:11 Temperature 97.8 F Pulse Rate 113 H Pulse Rate [Monitor] 116 H Respiratory Rate 22 22 Blood Pressure Blood Pressure [Left Arm] 89/62 L Pulse Oximetry 88 L 92 L 87 L Oxygen Delivery Method Nasal Cannula Nonrebreather Oxygen Delivery Flow Rate 3 14 11/13/22 16:14 11/13/22 16:14 11/13/22 16:14 Temperature Pulse Rate 112 H 113 H 102 H Pulse Rate [Monitor] Respiratory Rate 24 20 23 Blood Pressure 86/59 L 86/59 L Blood Pressure [Left Arm] Pulse Oximetry 88 L 86 L 85 L Oxygen Delivery Method Oxygen Delivery Flow Rate 11/13/22 16:16 11/13/22 16:31 11/13/22 16:45 Temperature Pulse Rate 104 H 95 H 101 H Pulse Rate [Monitor] Respiratory Rate 18 18 23 Blood Pressure 88/64 L 91/69 85/65 L Blood Pressure [Left Arm] Pulse Oximetry 93 L 94 L Oxygen Delivery Method Oxygen Delivery Flow Rate Course Vital Signs Vital signs: Vital Signs Temperature 97.8 F 11/13/22 16:03 Pulse Rate 116 H 11/13/22 16:03 Respiratory Rate 22 11/13/22 16:03 Blood Pressure 89/62 L 11/13/22 16:03 Pulse Oximetry 88 L 11/13/22 16:03 Oxygen Delivery Method Nasal Cannula 11/13/22 16:03 Oxygen Delivery Flow Rate 3 11/13/22 16:03 Temperature 97.8 F 11/13/22 16:03 Pulse Rate 101 H 11/13/22 16:45 Respiratory Rate 23 11/13/22 16:45 Blood Pressure 85/65 L 11/13/22 16:45 Pulse Oximetry 92 L 11/13/22 16:48 Oxygen Delivery Method Nonrebreather 11/13/22 16:48 Oxygen Delivery Flow Rate 14 11/13/22 16:48 MDM - SOB/Dyspnea MDM Narrative Medical decision making narrative: the patient has reaccumulation of his left pleural effusion. Chest x-ray also per radiologist notes numerous metastases, according to the EHR he has melanoma which is metastatic. Sodium also one hundred twenty and BUN/creatinine are elevated above his baseline.the plan is to admit the patient. Differential Diagnosis Differential diagnosis: Likely congestive heart failure, community acquired pneumonia and other (pleural effusion) Lab Data Attestation: I reviewed the patient's lab results. Labs: Lab Results 11/13/22 Range/Units 16:30 WBC 20.8 H (4.0-11.0) 10^3/uL RBC 3.07 L (4.70-6.10) 10^6/uL Hgb 9.7 L (14.0-18.0) g/dL Hct 27.4 L (42.0-54.0) % MCV 89.3 (80.0-94.0) fL MCH 31.6 (25.9-34.0) pg MCHC 35.4 H (29.9-35.2) g/dL RDW 18.7 H (11.0-15.0) % Plt Count 328 (150-450) 10^3/uL MPV 10.0 (9.5-13.5) fL Seg Neuts % (Manual) 88.0 Band Neutrophils % 3.0 (0-5) % Lymphocytes % (Manual) 5.0 L (20.5-60.0) % Monocytes % (Manual) 4.0 (1.7-12.0) % Eosinophils % (Manual) 0.0 L (0.9-7.0) % Basophils % (Manual) 0.0 L (0.2-2.0) % Neutrophils # (Manual) 18.30 H (1.4-6.5) 10^3/uL Band Neutrophils # 0.6 H (0.0-0.3) 10^3/uL Lymphocytes # (Manual) 1.04 L (1.20-3.80) 10^3/uL Monocytes # (Manual) 0.83 H (0.30-0.80) 10^3/uL Eosinophils # (Manual) 0.00 (0.00-0.70) 10^3/uL Basophils # (Manual) 0.00 (0.00-0.10) 10^3/uL Anisocytosis 2+ Sodium 120 L* (136-145) mmol/L Potassium 5.2 H (3.5-5.1) mmol/L Chloride 86 L (98-107) mmol/L Carbon Dioxide 23.9 (21.0-32.0) mmol/L Anion Gap 15.3 BUN 91.0 H* (7.0-18.0) mg/dL Creatinine 2.09 H (0.70-1.30) mg/dL Est GFR ( Amer) 37 L (>=60) Est GFR (Non-Af Amer) 30 L (>=60) BUN/Creatinine Ratio 43.5 Glucose 103 (74-106) mg/dL Calcium 7.4 L (8.5-10.1) mg/dL NT-Pro-B Natriuret Pep 6738.0 H* (<=1800.0) pg/mL Discharge Plan Discharge Chief Complaint: Shortness of Breath/Dyspnea Clinical Impression: Pleural effusion Patient Disposition: Admitted As Inpatient Time of Disposition Decision: 19:03 Condition: Fair Prescriptions / Home Meds: No Action Eliquis 2.5 mg tablet 2.5 mg PO Q12H ferrous sulfate [FeroSul] 325 mg (65 mg iron) tablet 325 mg PO BID folic acid 1 mg tablet 1 mg PO .6 days week Rx Instructions: 1 mg orally 6 days per week. does not takeon day of methotrexate; hydralazine 50 mg tablet 50 mg PO Q12H lisinopril 40 mg tablet 40 mg PO .evening methotrexate sodium 2.5 mg tablet 10 mg PO .tuesday multivitamin [Daily Multi-Vitamin] Tablet 1 tab PO QAM aspirin 81 mg capsule 81 mg PO QDAY diltiazem HCl 240 mg Capsule,Extended Release 24hr 240 mg PO QD Qty: 30 11RF metoprolol tartrate 50 mg Tablet 50 mg PO BID Qty: 60 11RF nitrofurantoin monohyd/m-cryst [Macrobid] 100 mg capsule 100 mg PO BID 5 Days Qty: 10 0RF Rx Instructions: must administer with a meal/food Referrals: Jeffrey Mcclure MD [Primary Care Provider] - 1 week
[2022-11-13 17:11] LABS: Hematocrit 27.4 % (42.0-54.0); Hemoglobin 9.7 g/dL (14.0-18.0); Mean Corpuscular HGB Conc 35.4 g/dL (29.9-35.2); Mean Corpuscular Hemoglobin 31.6 pg (25.9-34.0); Mean Corpuscular Volume 89.3 fL (80.0-94.0); Platelet Count 328 10^3/uL (150-450); Red Blood Count 3.07 10^6/uL (4.70-6.10); Red Cell Distribution Width 18.7 % (11.0-15.0); White Blood Count 20.8 10^3/uL (4.0-11.0)
[2022-11-13 17:28] LABS: Lymphocytes Absolute Manual 1.04 10^3/uL (1.20-3.80)
[2022-11-13 17:29] LABS: Band Neutrophils Absolute 0.6 10^3/uL (0.0-0.3); Monocytes Absolute Manual 0.83 10^3/uL (0.30-0.80)
[2022-11-13 17:30] LABS: Anisocytosis 2+
[2022-11-13 17:34] LABS: Anion Gap 15.3; BUN Creatinine Ratio 43.5; Calcium 7.4 mg/dL (8.5-10.1); Carbon Dioxide 23.9 mmol/L (21.0-32.0); Chloride 86 mmol/L (98-107); Estimated GFR (African America 37 (>=60); Estimated GFR (Non-African Ame 30 (>=60); Glucose 103 mg/dL (74-106); Potassium 5.2 mmol/L (3.5-5.1)
[2022-11-13 17:36] LABS: Sodium 120 mmol/L (136-145)
[2022-11-13] MEDS: CEFTRIAXONE 1,000 MG in 0.9 % SODIUM CHLORIDE 50 ML 100 MG IV (18:49)
[2022-11-13] MEDS: AZITHROMYCIN 500 MG in 0.9 % SODIUM CHLORIDE 250 ML 250 MG IV (19:38)
[2022-11-13] MEDS: 0.9 % SODIUM CHLORIDE 1,000 ML 1000 ML IV (22:18)
[2022-11-13] MEDS: FUROSEMIDE 40 MG/4 ML VIAL 80 MG IVP (22:18)
--- NOTE | 2022-11-13 22:28 | P.PN_ITS ---
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 He states that he had a cough, has trouble sleeping and thinks that his swelling is worse. He denies any recent chest pain, fevers or chills. He also denies any palpitations. He has not been eating or drinking much for the last 5 days and he also notes that his sense of smell and taste is gone. He has been evaluated multiple times over the last month and was admitted on 11/03/2022. Exam Constitutional Vital Signs - 24 hr 11/13/22 16:03 11/13/22 16:48 11/13/22 16:11 Temperature 97.8 F Pulse Rate 113 H Pulse Rate [Monitor] 116 H Respiratory Rate 22 22 Blood Pressure Blood Pressure [Left Arm] 89/62 L Pulse Oximetry 88 L 92 L 87 L Oxygen Delivery Method Nasal Cannula Nonrebreather Oxygen Delivery Flow Rate 3 14 11/13/22 16:14 11/13/22 16:14 11/13/22 16:14 Temperature Pulse Rate 112 H 113 H 102 H Pulse Rate [Monitor] Respiratory Rate 24 20 23 Blood Pressure 86/59 L 86/59 L Blood Pressure [Left Arm] Pulse Oximetry 88 L 86 L 85 L Oxygen Delivery Method Oxygen Delivery Flow Rate 11/13/22 16:16 11/13/22 16:31 11/13/22 16:45 Temperature Pulse Rate 104 H 95 H 101 H Pulse Rate [Monitor] Respiratory Rate 18 18 23 Blood Pressure 88/64 L 91/69 85/65 L Blood Pressure [Left Arm] Pulse Oximetry 93 L 94 L Oxygen Delivery Method Oxygen Delivery Flow Rate 11/13/22 17:00 11/13/22 17:15 11/13/22 17:30 Temperature Pulse Rate 109 H 110 H 98 H Pulse Rate [Monitor] Respiratory Rate 19 19 19 Blood Pressure 84/71 L 82/58 L 110/73 Blood Pressure [Left Arm] Pulse Oximetry 93 L 92 L 91 L Oxygen Delivery Method Oxygen Delivery Flow Rate 11/13/22 17:45 11/13/22 18:00 11/13/22 18:16 Temperature Pulse Rate 100 H 111 H 114 H Pulse Rate [Monitor] Respiratory Rate 22 19 Blood Pressure 98/69 126/63 H 93/70 Blood Pressure [Left Arm] Pulse Oximetry 89 L 92 L 90 L Oxygen Delivery Method Oxygen Delivery Flow Rate 11/13/22 18:30 11/13/22 18:45 11/13/22 19:00 Temperature Pulse Rate 102 H 114 H 101 H Pulse Rate [Monitor] Respiratory Rate 19 15 16 Blood Pressure 94/69 76/58 L 93/57 L Blood Pressure [Left Arm] Pulse Oximetry 90 L 91 L 91 L Oxygen Delivery Method Oxygen Delivery Flow Rate 11/13/22 19:00 11/13/22 19:15 11/13/22 19:30 Temperature Pulse Rate 111 H 113 H 96 H Pulse Rate [Monitor] Respiratory Rate 24 15 17 Blood Pressure 93/57 L 123/63 H 82/58 L Blood Pressure [Left Arm] Pulse Oximetry 91 L 92 L 93 L Oxygen Delivery Method Oxygen Delivery Flow Rate 11/13/22 19:45 11/13/22 20:00 11/13/22 20:15 Temperature Pulse Rate 107 H 101 H 94 H Pulse Rate [Monitor] Respiratory Rate 22 21 Blood Pressure 101/63 92/71 76/58 L Blood Pressure [Left Arm] Pulse Oximetry 90 L 91 L 94 L Oxygen Delivery Method Oxygen Delivery Flow Rate 11/13/22 20:30 11/13/22 20:30 11/13/22 20:45 Temperature Pulse Rate 88 110 H 97 H Pulse Rate [Monitor] Respiratory Rate Blood Pressure 93/68 93/68 91/63 Blood Pressure [Left Arm] Pulse Oximetry 95 94 L 93 L Oxygen Delivery Method Oxygen Delivery Flow Rate 11/13/22 21:00 11/13/22 21:16 11/13/22 21:30 Temperature Pulse Rate 91 H 94 H 114 H Pulse Rate [Monitor] Respiratory Rate 20 17 Blood Pressure 82/68 L 106/89 H 88/72 L Blood Pressure [Left Arm] Pulse Oximetry 92 L 89 L 91 L Oxygen Delivery Method Oxygen Delivery Flow Rate 11/13/22 21:45 11/13/22 22:00 11/13/22 22:15 Temperature Pulse Rate 96 H 113 H 91 H Pulse Rate [Monitor] Respiratory Rate 27 H 26 H 15 Blood Pressure 91/62 77/60 L 91/64 Blood Pressure [Left Arm] Pulse Oximetry 90 L 90 L 91 L Oxygen Delivery Method Oxygen Delivery Flow Rate 11/13/22 22:27 Temperature Pulse Rate Pulse Rate [Monitor] Respiratory Rate Blood Pressure Blood Pressure [Left Arm] Pulse Oximetry 91 L Oxygen Delivery Method Oxygen Delivery Flow Rate Documenting provider has reviewed patient's vital signs: yes Common normals: no apparent distress General appearance: cooperative and comfortable Orientation/consciousness: Yes awake, Yes oriented to person, Yes oriented to place and Yes oriented to time HENRI Common normals: normocephalic Head and scalp: normocephalic Chest Common normals: inspection of chest normal Respiratory Common normals: no retractions and no use of accessory muscles Effort & inspection: able to speak in complete sentences Auscultation: rhonchi left upper, wheezes expiratory wheezes and scattered wheezes and breath sounds absent on th left (lower lobe) Cardio Jugular venous distention: other; no JVD Rhythm: abnormal rhythm irregularly irregular Heart sounds: S1 normal and S2 normal Peripheral pulses: pulses 2+ throughout GI Common normals: Normal to inspection, nondistended, normoactive bowel sounds present, soft to palpation and non-tender Extremity Other: Bilateral 4+ edema to the knees with some trace edema in his thighs. No scrotal edema noted. Neuro Common normals: oriented x3, CN's II-XII intact bilaterally, moves all extremities, no focal motor deficits and no sensory deficits noted Psych Common normals: mental status grossly normal, thought process normal, cooperative, affect normal and speech normal Progress Note: Objective Labs Labs: Short CBC 11/13/22 Range/Units 16:30 WBC 20.8 H (4.0-11.0) 10^3/uL Hgb 9.7 L (14.0-18.0) g/dL Hct 27.4 L (42.0-54.0) % Plt Count 328 (150-450) 10^3/uL BMP 11/13/22 16:30 Sodium 120 L* Potassium 5.2 H Chloride 86 L Carbon Dioxide 23.9 BUN 91.0 H* Creatinine 2.09 H Glucose 103 Calcium 7.4 L ECG Attestation: I personally reviewed and interpreted this ECG as follows: ECG interpretation date: 11/13/22 Prior ECG tracings: not available for review Interpretation: Atrial fibrillation with RVR, rate of 115 bpm. There are no ST elevations noted. Imaging Chest x-ray: Attestation: I have reviewed the pertinent imaging results. Radiologist's impression: Innumerable bilateral nodules consistent with metastatic disease. A larger left pleural effusion. Progress Note: A&P Assessment and Plan (1) Atrial fibrillation: (2) HTN (hypertension): (3) Left lower lobe pneumonia: (4) Melanocarcinoma: (5) Acute kidney injury: (6) Acute respiratory failure with hypoxemia: (7) Congestive heart failure (CHF): (8) Pleural effusion on left: (9) Atrial fibrillation: (10) Hyponatremia: Plan 1. Acute respiratory failure with hypoxia Left Pleural Effusion Possible pneumonia The patient presented to the ED with SOB and was found to have acute hypoxia and the chest X-ray showed a larger left sided effusion. No pneumonia was seen but he does have a leukocytosis. - admit to hospitalist service - c/w ceftriaxone and azithromycin - supplemental oxygen - thoracentesis in the morning - hold apixaban overnight - how aspirin - check lactic acid 2. Volume overload Elevated ProBNP The patient has 4+ LE edema. 2+ UE edema and the pleural effusion. His ProBNP is elevated. He denies any recent chest pain. - c/w telemetry - check echocardiogram - check troponin - I/O, daily weights - hold off on furosemide for now because she also has an MAGO. 3. MAGO Creatinine is elevated from his baseline at 2.0. Unclear the origin of his, since she is also volume overloaded, but possibly from poor CO. - trend creatinine - hold nephrotoxic medications - check urine sodium and creatinine 4. Hyponatremia Mild Hyperkalemia Sodium is acutely lower than usual at 120. K is mildly elevated at 5.2. I will watch this for now and hold the lisinopril. - check urine sodium and osmolality - trend sodium q4h - will fluid restric for now given volume overload. If it worsens, then she might need IVF. 5. Atrial Fibrillation with RVR HR in the 110-120s on presentation. Currently better. - c/w metoprolol and diltiazem - hold apixaban and aspirin 6. Anemia Hemoglobin has drifted down from 12 to 9.7 over the last two weeks. No obvious source of bleeding. Currently on ferrous sulfate. - c/w ferrous sulfate - trend H/H 7. Psoriasis - c/w methotrexate weekly 8. Hypertension - c/w hydralazine, metoprolol and diltiazem for now Telemedicine Attestation Telemedicine Attestation I conducted this encounter from [place] via secure live, [id number] video conference with the patient, located at [facility] with Pascale Lockett RN. Prior to the interview, the risks and benefits of telemedicine were discussed with the patient and verbal consent was obtained.
--- NOTE | 2022-11-13 23:33 | PC.NURSE ---
DISCHARGE GIVEN TO SANDY BANERJEE
[2022-11-14] VITALS (73 sets, daily range): BP systolic 69–116; BP diastolic 40–81; PULSE 78–134; RESP 12–27; TEMP 36.2–36.7; O2SAT 73–98
[2022-11-14 00:01] LABS: Basophils Percent Auto 0.1 % (0.2-2.0); Eosinophils Percent Auto 0.1 % (0.9-7.0); Hematocrit 24.1 % (42.0-54.0); Hemoglobin 8.7 g/dL (14.0-18.0); Immature Granulocytes Abs Auto 1.47 10^3/uL (0.00-0.03); Lymphocytes Absolute Auto 0.9 10^3/uL (1.2-3.8); Mean Corpuscular HGB Conc 36.1 g/dL (29.9-35.2); Mean Corpuscular Hemoglobin 32.1 pg (25.9-34.0); Mean Corpuscular Volume 88.9 fL (80.0-94.0); Mean Platelet Volume 9.8 fL (9.5-13.5); Monocytes Absolute Auto 1.1 10^3/uL (0.3-0.8); Monocytes Percent Auto 6.2 % (1.7-12.0); Neutrophils Absolute Auto 14.8 10^3/uL (1.4-6.5); Neutrophils Percent Auto 80.6 % (43.0-75.0); Platelet Count 261 10^3/uL (150-450); Red Blood Count 2.71 10^6/uL (4.70-6.10); Red Cell Distribution Width 18.9 % (11.0-15.0); White Blood Count 18.3 10^3/uL (4.0-11.0)
[2022-11-14 00:37] LABS: Lactate/Lactic Acid 1.7 mmol/L (0.4-2.0); Troponin I High Sensitivity 25.4 pg/mL (4.0-76.1)
[2022-11-14 00:44] LABS: Alanine Aminotransferase 15 U/L (16-63); Albumin Globulin Ratio 0.7; Albumin Level 2.3 g/dL (3.4-5.0); Alkaline Phosphatase 69 U/L (46-116); Anion Gap 13.9; Aspartate Amino Transferase 18 U/L (15-37); BUN Creatinine Ratio 44.8; Calcium 7.5 mg/dL (8.5-10.1); Carbon Dioxide 23.6 mmol/L (21.0-32.0); Chloride 89 mmol/L (98-107); Estimated GFR (African America 39 (>=60); Estimated GFR (Non-African Ame 32 (>=60); Globulin 3.5 g/dL; Glucose 100 mg/dL (74-106); Magnesium 2.4 mg/dL (1.8-2.4); Potassium 4.5 mmol/L (3.5-5.1); Total Protein 5.8 g/dL (6.4-8.2)
[2022-11-14] MEDS: PANTOPRAZOLE SODIUM 40 MG VIAL IV (00:51)
[2022-11-14 00:56] LABS: SARS-CoV-2 Ag NEGATIVE (NEGATIVE)
[2022-11-14 01:05] LABS: Sodium 122 mmol/L (136-145)
[2022-11-14 05:17] LABS: Sodium 124 mmol/L (136-145)
[2022-11-14] MEDS: CEFTRIAXONE 1 MG in 0.9 % SODIUM CHLORIDE 50 ML 100 MG IV (06:09)
[2022-11-14] MEDS: 0.9 % SODIUM CHLORIDE 1,000 ML 100 ML IV (07:01)
[2022-11-14 08:15] LABS: Sodium 126 mmol/L (136-145)
[2022-11-14 09:17] LABS: Hematocrit 29.5 % (42.0-54.0); Mean Corpuscular HGB Conc 33.9 g/dL (29.9-35.2); Mean Corpuscular Hemoglobin 31.4 pg (25.9-34.0); Mean Corpuscular Volume 92.8 fL (80.0-94.0); Mean Platelet Volume 9.6 fL (9.5-13.5); Platelet Count 292 10^3/uL (150-450); Red Blood Count 3.18 10^6/uL (4.70-6.10); Red Cell Distribution Width 19.3 % (11.0-15.0); White Blood Count 19.6 10^3/uL (4.0-11.0)
--- NOTE | 2022-11-14 09:26 | P.HP_ITS ---
H&P: HPI History of Present Illness Chief complaint: diff breathing-PLEURAL EFFUSION Narrative: Patient well-known to me from a office and previous hospitalizations, presented to the emergency room with increasing shortness of breath. Found to have a reoccurrence of his pleural effusion also leukocytosis, patient admitted to ICU for work-up and treatment of same Review of Systems ROS Constitutional Denies: fever or chills Eyes Denies: blurry vision Ears, nose, mouth, and throat Denies: throat pain Cardiovascular Reports: palpitations; Denies: chest pain Respiratory Reports: shortness of breath and cough Gastrointestinal Denies: abdominal pain or nausea Genitourinary Denies: painful urination Musculoskeletal Denies: back pain Psychiatric Denies: anxiety [facility] Medical History (Updated 11/14/22 @ 00:22 by Moise Chandler MD) Surgical History (Updated 10/31/22 @ 14:16 by Na Le) Family History (Updated 10/31/22 @ 14:17 by Na Le) Father Family history of stroke Social History (Updated 10/31/22 @ 14:18 by Na Le) Within the past year, how often did you have a drink containing alcohol: never Within the past year, how often did you have six or more drinks on one occasion: never Score interpretation: A score less than 4 is consistent with normal alcohol consumption. Smoking status: Former smoker Non-prescribed substance use: denies use Previous occupational history: factory Known occupational exposures/hazards: No Highest level of school completed/degree received: high school graduate Meds Home Medications and Allergies Home Medications Medication Instructions Recorded Confirmed Type apixaban 2.5 mg tablet (Eliquis) 2.5 mg PO Q12H afib 10/22/22 10/31/22 History aspirin 81 mg capsule 81 mg PO QDAY 10/22/22 10/31/22 History ferrous sulfate 325 mg (65 mg 325 mg PO BID 10/22/22 10/31/22 History iron) tablet (FeroSul) folic acid 1 mg tablet 1 mg PO .6 days week 10/22/22 10/31/22 History hydralazine 50 mg tablet 50 mg PO Q12H 10/22/22 10/31/22 History lisinopril 40 mg tablet 40 mg PO .evening 10/22/22 10/31/22 History methotrexate sodium 2.5 mg tablet 10 mg PO .tuesday10/22/22 10/31/22 History multivitamin (Daily Multi-Vitamin 1 tab PO QAM 10/22/22 10/31/22 History tablet) diltiazem HCl 240 mg 240 mg PO QD #30 caps 11/02/22 Rx capsule,extended release 24 hr metoprolol tartrate 50 mg tablet 50 mg PO BID #60 tabs 11/02/22 Rx nitrofurantoin 100 mg PO BID 5 days #10 caps 11/09/22 Rx monohydrate/macrocrystals 100 mg capsule (Macrobid) Allergies Allergy/AdvReac Type Severity Reaction Status Date / Time Sulfa (Sulfonamide Allergy Unknown Verified 11/08/22 23:42 Antibiotics) BACTRIM Allergy Unknown Uncoded 11/08/22 23:42 Exam Narrative Exam Narrative: Hearing loss Constitutional Vital Signs - 24 hr 11/13/22 16:03 11/13/22 16:48 11/13/22 16:11 Temperature 97.8 F Pulse Rate 113 H Pulse Rate [Monitor] 116 H Respiratory Rate 22 22 Blood Pressure Blood Pressure [Left Arm] 89/62 L Pulse Oximetry 88 L 92 L 87 L Oxygen Delivery Method Nasal Cannula Nonrebreather Oxygen Delivery Flow Rate 3 14 11/13/22 16:14 11/13/22 16:14 11/13/22 16:14 Temperature Pulse Rate 112 H 113 H 102 H Pulse Rate [Monitor] Respiratory Rate 24 20 23 Blood Pressure 86/59 L 86/59 L Blood Pressure [Left Arm] Pulse Oximetry 88 L 86 L 85 L Oxygen Delivery Method Oxygen Delivery Flow Rate 11/13/22 16:16 11/13/22 16:31 11/13/22 16:45 Temperature Pulse Rate 104 H 95 H 101 H Pulse Rate [Monitor] Respiratory Rate 18 18 23 Blood Pressure 88/64 L 91/69 85/65 L Blood Pressure [Left Arm] Pulse Oximetry 93 L 94 L Oxygen Delivery Method Oxygen Delivery Flow Rate 11/13/22 17:00 11/13/22 17:15 11/13/22 17:30 Temperature Pulse Rate 109 H 110 H 98 H Pulse Rate [Monitor] Respiratory Rate 19 19 19 Blood Pressure 84/71 L 82/58 L 110/73 Blood Pressure [Left Arm] Pulse Oximetry 93 L 92 L 91 L Oxygen Delivery Method Oxygen Delivery Flow Rate 11/13/22 17:45 11/13/22 18:00 11/13/22 18:16 Temperature Pulse Rate 100 H 111 H 114 H Pulse Rate [Monitor] Respiratory Rate 22 19 Blood Pressure 98/69 126/63 H 93/70 Blood Pressure [Left Arm] Pulse Oximetry 89 L 92 L 90 L Oxygen Delivery Method Oxygen Delivery Flow Rate 11/13/22 18:30 11/13/22 18:45 11/13/22 19:00 Temperature Pulse Rate 102 H 114 H 101 H Pulse Rate [Monitor] Respiratory Rate 19 15 16 Blood Pressure 94/69 76/58 L 93/57 L Blood Pressure [Left Arm] Pulse Oximetry 90 L 91 L 91 L Oxygen Delivery Method Oxygen Delivery Flow Rate 11/13/22 19:00 11/13/22 19:15 11/13/22 19:30 Temperature Pulse Rate 111 H 113 H 96 H Pulse Rate [Monitor] Respiratory Rate 24 15 17 Blood Pressure 93/57 L 123/63 H 82/58 L Blood Pressure [Left Arm] Pulse Oximetry 91 L 92 L 93 L Oxygen Delivery Method Oxygen Delivery Flow Rate 11/13/22 19:45 11/13/22 20:00 11/13/22 20:15 Temperature Pulse Rate 107 H 101 H 94 H Pulse Rate [Monitor] Respiratory Rate 22 21 Blood Pressure 101/63 92/71 76/58 L Blood Pressure [Left Arm] Pulse Oximetry 90 L 91 L 94 L Oxygen Delivery Method Oxygen Delivery Flow Rate 11/13/22 20:30 11/13/22 20:30 11/13/22 20:45 Temperature Pulse Rate 88 110 H 97 H Pulse Rate [Monitor] Respiratory Rate Blood Pressure 93/68 93/68 91/63 Blood Pressure [Left Arm] Pulse Oximetry 95 94 L 93 L Oxygen Delivery Method Oxygen Delivery Flow Rate 11/13/22 21:00 11/13/22 21:16 11/13/22 21:30 Temperature Pulse Rate 91 H 94 H 114 H Pulse Rate [Monitor] Respiratory Rate 20 17 Blood Pressure 82/68 L 106/89 H 88/72 L Blood Pressure [Left Arm] Pulse Oximetry 92 L 89 L 91 L Oxygen Delivery Method Oxygen Delivery Flow Rate 11/13/22 21:45 11/13/22 22:00 11/13/22 22:15 Temperature Pulse Rate 96 H 113 H 91 H Pulse Rate [Monitor] Respiratory Rate 27 H 26 H 15 Blood Pressure 91/62 77/60 L 91/64 Blood Pressure [Left Arm] Pulse Oximetry 90 L 90 L 91 L Oxygen Delivery Method Oxygen Delivery Flow Rate 11/13/22 22:27 11/13/22 23:09 11/13/22 23:10 Temperature Pulse Rate 101 H Pulse Rate [Monitor] Respiratory Rate Blood Pressure Blood Pressure [Left Arm] Pulse Oximetry 91 L 94 L Oxygen Delivery Method Nonrebreather Oxygen Delivery Flow Rate 14 11/13/22 22:30 11/13/22 22:40 11/13/22 22:40 Temperature 96.7 F L Pulse Rate 104 H 107 H 111 H Pulse Rate [Monitor] Respiratory Rate 51 H 16 19 Blood Pressure 97/62 97/62 Blood Pressure [Left Arm] Pulse Oximetry 90 L 91 L Oxygen Delivery Method Oxygen Delivery Flow Rate 14 11/13/22 23:52 11/14/22 00:07 11/13/22 22:40 Temperature Pulse Rate 108 H Pulse Rate [Monitor] 106 H Respiratory Rate 14 Blood Pressure 97/62 Blood Pressure [Left Arm] Pulse Oximetry 94 L 93 L Oxygen Delivery Method Nonrebreather Oxygen Delivery Flow Rate 14 11/13/22 22:40 11/13/22 23:45 11/14/22 00:00 Temperature Pulse Rate 110 H 101 H 115 H Pulse Rate [Monitor] Respiratory Rate 20 16 17 Blood Pressure 97/62 72/58 L 77/54 L Blood Pressure [Left Arm] Pulse Oximetry 78 L 84 L 90 L Oxygen Delivery Method Oxygen Delivery Flow Rate 11/14/22 00:30 11/14/22 00:30 11/14/22 01:00 Temperature Pulse Rate 103 H 103 H 116 H Pulse Rate [Monitor] Respiratory Rate 17 20 20 Blood Pressure 89/59 L 89/59 L 88/75 L Blood Pressure [Left Arm] Pulse Oximetry 91 L 94 L 79 L Oxygen Delivery Method Oxygen Delivery Flow Rate 14 14 11/14/22 01:00 11/14/22 01:00 11/14/22 01:30 Temperature Pulse Rate 107 H 122 H 108 H Pulse Rate [Monitor] Respiratory Rate 17 18 20 Blood Pressure 88/75 L 88/75 L 76/56 L Blood Pressure [Left Arm] Pulse Oximetry 73 L Oxygen Delivery Method Oxygen Delivery Flow Rate 11/14/22 01:30 11/14/22 02:00 11/14/22 02:30 Temperature Pulse Rate 108 H 102 H 99 H Pulse Rate [Monitor] Respiratory Rate 17 15 14 Blood Pressure 76/56 L 74/56 L 82/57 L Blood Pressure [Left Arm] Pulse Oximetry 86 L Oxygen Delivery Method Oxygen Delivery Flow Rate 11/14/22 02:30 11/14/22 03:00 11/14/22 04:26 Temperature Pulse Rate 98 H 105 H 109 H Pulse Rate [Monitor] Respiratory Rate 21 17 Blood Pressure 82/57 L 82/57 L Blood Pressure [Left Arm] Pulse Oximetry 95 93 L Oxygen Delivery Method Oxygen Delivery Flow Rate 14 11/14/22 03:00 11/14/22 03:30 11/14/22 04:00 Temperature Pulse Rate 100 H 120 H 113 H Pulse Rate [Monitor] Respiratory Rate 19 15 19 Blood Pressure 82/57 L 93/61 83/61 L Blood Pressure [Left Arm] Pulse Oximetry 93 L 93 L 93 L Oxygen Delivery Method Oxygen Delivery Flow Rate 11/14/22 04:00 11/14/22 04:30 11/14/22 05:00 Temperature Pulse Rate 120 H 120 H 108 H Pulse Rate [Monitor] Respiratory Rate 21 23 18 Blood Pressure 83/61 L 90/70 80/57 L Blood Pressure [Left Arm] Pulse Oximetry 84 L 92 L Oxygen Delivery Method Oxygen Delivery Flow Rate 14 11/14/22 05:00 11/14/22 05:30 11/14/22 05:30 Temperature Pulse Rate 106 H 127 H 110 H Pulse Rate [Monitor] Respiratory Rate 19 16 13 Blood Pressure 80/57 L 89/58 L 89/58 L Blood Pressure [Left Arm] Pulse Oximetry 79 L Oxygen Delivery Method Oxygen Delivery Flow Rate 11/14/22 06:01 11/14/22 07:21 11/14/22 07:22 Temperature 97.3 F L Pulse Rate 109 H 125 H Pulse Rate [Monitor] Respiratory Rate 19 Blood Pressure 97/62 Blood Pressure [Left Arm] Pulse Oximetry 98 Oxygen Delivery Method Oxygen Delivery Flow Rate 14 11/14/22 06:01 11/14/22 06:31 11/14/22 07:02 Temperature 97.6 F Pulse Rate 95 H 108 H 110 H Pulse Rate [Monitor] Respiratory Rate 16 15 16 Blood Pressure 97/62 75/49 L 90/64 Blood Pressure [Left Arm] Pulse Oximetry 94 L 85 L 86 L Oxygen Delivery Method Oxygen Delivery Flow Rate Common normals: oriented x3; apparent distress General appearance: cooperative Orientation/consciousness: Yes awake; not confused HENMT Common normals: moist oral mucous membranes Chest Common normals: inspection of chest normal Respiratory Common normals: no retractions Effort & inspection: able to speak in complete sentences and symmetric chest movement Auscultation: diminished lung sounds Cardio Rate: tachycardic Rhythm: abnormal rhythm GI Common normals: Normal to inspection, nondistended, normoactive bowel sounds present Extremity Common normals: abnormal to inspection (2+ edema bilateral lower extremities) Results Labs Labs: Short CBC 11/13/22 11/13/22 Range/Units 16:30 23:50 WBC 20.8 H 18.3 H (4.0-11.0) 10^3/uL Hgb 9.7 L 8.7 L (14.0-18.0) g/dL Hct 27.4 L 24.1 L (42.0-54.0) % Plt Count 328 261 (150-450) 10^3/uL BMP 11/13/22 11/14/22 11/14/22 16:30 00:00 04:05 Sodium 120 L* 122 L* 124 L* Potassium 5.2 H 4.5 Chloride 86 L 89 L Carbon Dioxide 23.9 23.6 BUN 91.0 H* 90.0 H* Creatinine 2.09 H 2.01 H Glucose 103 100 Calcium 7.4 L 7.5 L 11/14/22 07:45 Sodium 126 L Potassium Chloride Carbon Dioxide BUN Creatinine Glucose Calcium Liver Function 11/14/22 Range/Units 00:00 Total Bilirubin 1.0 (0.2-1.0) mg/dL AST 18 (15-37) U/L ALT 15 L (16-63) U/L Alkaline Phosphatase 69 (46-116) U/L Albumin 2.3 L (3.4-5.0) g/dL Assessment and Plan Assessment and Plan (1) Atrial fibrillation: (2) HTN (hypertension): (3) Left lower lobe pneumonia: (4) Melanocarcinoma: (5) Acute kidney injury: (6) Acute respiratory failure with hypoxemia: (7) Congestive heart failure (CHF): (8) Pleural effusion on left: (9) Hyponatremia: (10) Atrial fibrillation: (11) Pleural effusion: (12) Metastatic melanoma to lung: (13) Moderate protein malnutrition: (14) Iron deficiency anemia: (15) Hypocalcemia: (16) Hypoxemia: (17) Atrial fibrillation with RVR: (18) Lymphoma: Plan Atrial fibrillation with rapid ventricular response, acute hypoxic respiratory failure, hypotension, leukocytosis, hyponatremia, hyperkalemia, acute kidney injury with elevated BNP secondary to sepsis severe sepsis-change antibiotics, he has been in the hospital recently up at [facility] so change patient to Zosyn and Cipro. Unable to use aminoglycoside secondary to kidney function. Blood cultures are pending. Severe sepsis-Monitor CBCs, check on blood cx, change in AB as above Pleural effusion recurrent secondary to exudative process with his Metastatic melanoma-consult to pulmonology for possible repeat thoracentesis for comfort. Did discuss CODE STATUS and will change him to [id number]. We discussed with him and family tomorrow about possible hospice. Atrial fibrillation with rapid ventricular response-check echo, Limited is fine, start patient on Lanoxin-with hypotension and unable to use his previously prescribed beta-wesley and calcium channel wesley. Anemia-possible acute blood loss anemia-on Protonix, will type cross and transfuse 1 unit which may help his blood pressur , and heart rate which may improve his oxygenation ability Hyponatremia-this is likely a process of his cancer. We will monitor daily.Consider 3% History of hypomagnesemia-check level Hyperkalemia on admission-improved Severe protein calorie malnutrition-May need diet supplement, consideration also for albumin Patient medical treatment will last for more than 2 midnights,Likely here 3 to 4 days with intensive care management for the diagnoses outlined above
[2022-11-14 09:30] LABS: Phosphorus 5.3 mg/dL (2.6-4.7)
[2022-11-14 09:38] LABS: Lactate/Lactic Acid 2.3 mmol/L (0.4-2.0)
[2022-11-14 10:02] LABS: Alanine Aminotransferase 16 U/L (16-63); Albumin Globulin Ratio 0.7; Albumin Level 2.4 g/dL (3.4-5.0); Alkaline Phosphatase 73 U/L (46-116); Aspartate Amino Transferase 24 U/L (15-37); BUN Creatinine Ratio 47.5; Calcium 7.5 mg/dL (8.5-10.1); Carbon Dioxide 24.8 mmol/L (21.0-32.0); Chloride 90 mmol/L (98-107); Creatine Kinase 43 U/L (39-308); Creatine Kinase MB 0.95 ng/mL (<=3.60); Estimated GFR (African America 44 (>=60); Estimated GFR (Non-African Ame 36 (>=60); Globulin 3.6 g/dL; Glucose 102 mg/dL (74-106); Magnesium 2.5 mg/dL (1.8-2.4); Potassium 4.8 mmol/L (3.5-5.1); Sodium 126 mmol/L (136-145); Troponin I High Sensitivity 25.7 pg/mL (4.0-76.1)
[2022-11-14] MEDS: DIPHENHYDRAMINE HCL 50 MG/ML (1ML) VIAL 25 MG IV (10:05)
[2022-11-14] MEDS: PIPERACILLIN SODIUM/TAZOBACTAM 3.375 GM in 0.9 % SODIUM CHLORIDE 50 ML IV (10:05)
[2022-11-14] MEDS: FERROUS SULFATE 325 MG TABLET PO (10:06)
[2022-11-14] MEDS: ASPIRIN 81 MG TAB.CHEW PO (10:06)
[2022-11-14] MEDS: ACETAMINOPHEN 325 MG TABLET 650 MG PO (10:06)
[2022-11-14] MEDS: FOLIC ACID 1 MG TABLET PO (10:07)
[2022-11-14] MEDS: APIXABAN 5 MG TABLET 2.5 MG PO (10:07)
[2022-11-14] MEDS: DIGOXIN 500 MCG/2 ML AMPUL 250 MCG IV (10:08)
--- NOTE | 2022-11-14 10:08 | RESP.RT ---
S/U Bipap at 0910 at 1000 pt is resting SPO2 =93 [id number] No distress noted
[2022-11-14 10:10] LABS: Band Neutrophils Absolute 1.4 10^3/uL (0.0-0.3); Segmented Neut Absolute Manual 16.85 10^3/uL (1.4-6.5)
[2022-11-14 10:11] LABS: Lymphocytes Absolute Manual 0.98 10^3/uL (1.20-3.80); Monocytes Absolute Manual 0.39 10^3/uL (0.30-0.80)
[2022-11-14 10:18] LABS: Myoglobin 253 ng/mL (16-96)
[2022-11-14] MEDS: 0.9 % SODIUM CHLORIDE 250 ML 10 ML IV (12:27)
[2022-11-14 13:09] LABS: Sodium 124 mmol/L (136-145)
--- NOTE | 2022-11-14 13:36 | PM.CSD1 ---
Advance Care Planning Advance Care Planning Discussion Advance care planning discussion summary: Patient presents with acute resp failure with hypoxia, currently requiring BIPAP for it and still hypoxic sec to Pleural effusion likely malignant euffusion that is recurrent and possibly sec to metastatic melanoma. Patient code status was changed to DNR CCA this morning by Dr zamudio after d/w of goals of care. I met him this afternoon while , his brother and grandson were in the room. I summarized his medical problems/conditions, discussed his prognosis and his goals of care shannan with regards to end of life care wishes and plans. Patient and his - would like to make him DNR CC and consult Hospice and he would like to go home once hospice is set up for him and be at home with his family. Both agreed to d/c all medications, testing except for what would make him comfortable. C/w O2 supplementation as needed but no BIPAP. Hospice consulted. RN updated and notified. Will also inform Dr Zamudio of recent developments Advance care planning: [facility] Does patient have a terminal or chronic,progressive disease such that prognosis is less than 6 months: Yes Advance care planning discussion participants: patient and other family member (, brother and grand son)
[2022-11-14 15:28] LABS: SARS-CoV-2 NAA NOT DETECTED (NOT DETECTE)
--- NOTE | 2022-11-14 16:29 | RESP.RT ---
Due to code status no PEP or BIPAP at this time
[2022-11-15] VITALS (10 sets, daily range): PULSE 100–126; RESP 17; O2SAT 88–93
[2022-11-15] MEDS: MORPHINE SULFATE 2 MG/ML SYRINGE IV (05:42)
--- NOTE | 2022-11-15 07:28 | PM.PLCN ---
History of Present Illness History of Present Illness Consult date: 11/15/22 Requesting physician: Jeffrey Mcclure Reason for consult: pleural effusion Chief complaint: diff breathing-PLEURAL EFFUSION Narrative: 87yo male presents again to [facility] with dyspnea. He has history of metastatic melanoma with innumerable cannonball mets. Previously performed a left thoracentesis on him 11/03/2022 with 1600mL out; there was more fluid, but the procedure was aborted as the patient reported that he was breathing funny. He was subsequently transferred to [facility] for cardioversion which was not successful; echocardiogram apparently showed EF ~10-15%. He returned home, became more short of breath, and came back to [facility]. CXR showed worsening left effusion. The patient appears much worse today than not even 2 weeks ago. SBP is low in the 80's, he is on a NRB, he is weak. Review of Systems ROS Narrative Patient has dyspnea, fatigue, weakness, tired. No chest pain. No hemoptysis. Status of ROS 10 or more systems reviewed and unremarkable except as noted in history and below [facility] Medical History (Updated 11/14/22 @ 00:22 by Moise Chandler MD) Surgical History (Updated 10/31/22 @ 14:16 by Na Le) Family History (Updated 10/31/22 @ 14:17 by Na Le) Father Family history of stroke Social History (Updated 10/31/22 @ 14:18 by Na Le) Within the past year, how often did you have a drink containing alcohol: never Within the past year, how often did you have six or more drinks on one occasion: never Score interpretation: A score less than 4 is consistent with normal alcohol consumption. Smoking status: Former smoker Non-prescribed substance use: denies use Previous occupational history: factory Known occupational exposures/hazards: No Highest level of school completed/degree received: high school graduate Meds Home Medications and Allergies Home Medications Medication Instructions Recorded Confirmed Type lorazepam 2 mg/mL oral concentrate 1 mg (0.5 mL) PO Q4H PRN anxiety 11/15/22 Rx #30 mL morphine 20 mg/5 mL (4 mg/mL) oral 4 mg PO Q2H PRN pain #100 mL 11/15/22 Rx solution Allergies Allergy/AdvReac Type Severity Reaction Status Date / Time Sulfa (Sulfonamide Allergy Unknown Verified 11/08/22 23:42 Antibiotics) BACTRIM Allergy Unknown Uncoded 11/08/22 23:42 Exam Constitutional Vital Signs - 24 hr 11/14/22 09:27 11/14/22 10:08 11/14/22 10:04 Temperature Pulse Rate 112 H 116 H Respiratory Rate Blood Pressure Pulse Oximetry 94 L 93 L Oxygen Delivery Method BIPAP Oxygen Delivery Flow Rate Fraction of Inspired Oxygen 100 11/14/22 10:50 11/14/22 10:00 11/14/22 11:50 Temperature 98.1 F Pulse Rate 107 H 112 H 104 H Respiratory Rate 24 Blood Pressure 80/40 L Pulse Oximetry Oxygen Delivery Method Oxygen Delivery Flow Rate Fraction of Inspired Oxygen 11/14/22 07:31 11/14/22 08:01 11/14/22 08:32 Temperature Pulse Rate 88 78 124 H Respiratory Rate 21 17 Blood Pressure 85/57 L 82/52 L 113/79 Pulse Oximetry 79 L 85 L 87 L Oxygen Delivery Method Oxygen Delivery Flow Rate Fraction of Inspired Oxygen 11/14/22 09:00 11/14/22 09:30 11/14/22 10:00 Temperature Pulse Rate 120 H 123 H 100 H Respiratory Rate 18 20 17 Blood Pressure 92/67 80/59 L 99/62 Pulse Oximetry 89 L Oxygen Delivery Method Oxygen Delivery Flow Rate Fraction of Inspired Oxygen 11/14/22 10:31 11/14/22 11:00 11/14/22 11:30 Temperature Pulse Rate 114 H 104 H 113 H Respiratory Rate 21 21 19 Blood Pressure 80/50 L 92/51 L 69/60 L Pulse Oximetry 93 L 88 L 87 L Oxygen Delivery Method Oxygen Delivery Flow Rate Fraction of Inspired Oxygen 11/14/22 11:31 11/14/22 11:56 11/14/22 11:05 Temperature 97.8 F 97.8 F Pulse Rate 103 H 110 H Respiratory Rate 19 18 Blood Pressure 82/58 L 82/58 L Pulse Oximetry 88 L 91 L Oxygen Delivery Method BIPAP Oxygen Delivery Flow Rate 80 Fraction of Inspired Oxygen 11/14/22 12:01 11/14/22 12:05 11/14/22 10:00 Temperature 98.0 F 98.0 F Pulse Rate 84 86 94 H Respiratory Rate 18 16 Blood Pressure 84/54 L 95/61 Pulse Oximetry 92 L 94 L Oxygen Delivery Method BIPAP BIPAP Oxygen Delivery Flow Rate Fraction of Inspired Oxygen 11/14/22 12:00 11/14/22 14:06 11/14/22 14:00 Temperature 97.6 F Pulse Rate 86 89 110 H Respiratory Rate 20 Blood Pressure 109/70 Pulse Oximetry Oxygen Delivery Method Oxygen Delivery Flow Rate Fraction of Inspired Oxygen 11/14/22 15:56 11/14/22 11:31 11/14/22 12:00 Temperature Pulse Rate 113 H 109 H 105 H Respiratory Rate 15 21 Blood Pressure 82/58 L 84/54 L Pulse Oximetry 87 L 87 L Oxygen Delivery Method Oxygen Delivery Flow Rate Fraction of Inspired Oxygen 11/14/22 12:30 11/14/22 13:00 11/14/22 13:30 Temperature Pulse Rate 109 H 110 H 110 H Respiratory Rate 18 21 24 Blood Pressure 91/56 L 95/61 93/64 Pulse Oximetry 85 L 87 L 91 L Oxygen Delivery Method Oxygen Delivery Flow Rate Fraction of Inspired Oxygen 11/14/22 14:00 11/14/22 14:32 11/14/22 15:00 Temperature Pulse Rate 117 H 114 H 113 H Respiratory Rate 21 25 H 22 Blood Pressure 109/70 Pulse Oximetry Oxygen Delivery Method Oxygen Delivery Flow Rate Fraction of Inspired Oxygen 11/14/22 15:10 11/14/22 15:10 11/14/22 15:30 Temperature Pulse Rate 123 H 105 H 116 H Respiratory Rate 24 19 17 Blood Pressure 96/61 84/56 L Pulse Oximetry Oxygen Delivery Method Oxygen Delivery Flow Rate Fraction of Inspired Oxygen 11/14/22 16:28 11/14/22 17:39 11/14/22 19:33 Temperature Pulse Rate 132 H 115 H Respiratory Rate Blood Pressure Pulse Oximetry 89 L Oxygen Delivery Method Nonrebreather Oxygen Delivery Flow Rate 15 Fraction of Inspired Oxygen 11/14/22 15:30 11/14/22 16:00 11/14/22 16:30 Temperature Pulse Rate 98 H 117 H 118 H Respiratory Rate 18 22 21 Blood Pressure 84/56 L 99/60 85/65 L Pulse Oximetry 88 L 90 L Oxygen Delivery Method Oxygen Delivery Flow Rate Fraction of Inspired Oxygen 11/14/22 17:00 11/14/22 17:32 11/14/22 18:00 Temperature Pulse Rate 111 H 122 H 120 H Respiratory Rate 21 21 19 Blood Pressure 70/56 L 116/81 H 90/75 Pulse Oximetry Oxygen Delivery Method Oxygen Delivery Flow Rate Fraction of Inspired Oxygen 11/14/22 18:30 11/14/22 19:00 11/14/22 19:10 Temperature 97.5 F L Pulse Rate 134 H 128 H 119 H Respiratory Rate 25 H 27 H 20 Blood Pressure 102/68 95/63 96/63 Pulse Oximetry Oxygen Delivery Method Oxygen Delivery Flow Rate Fraction of Inspired Oxygen 11/14/22 19:33 11/14/22 19:39 11/14/22 21:09 Temperature Pulse Rate 120 H 124 H Respiratory Rate 17 Blood Pressure Pulse Oximetry 88 L Oxygen Delivery Method Nonrebreather Oxygen Delivery Flow Rate 15 Fraction of Inspired Oxygen 11/14/22 22:44 11/14/22 23:10 11/14/22 20:00 Temperature Pulse Rate 127 H 111 H Respiratory Rate 17 21 Blood Pressure Pulse Oximetry Oxygen Delivery Method Oxygen Delivery Flow Rate Fraction of Inspired Oxygen 11/14/22 20:30 11/14/22 21:00 11/14/22 21:30 Temperature Pulse Rate 117 H 108 H 133 H Respiratory Rate 16 24 17 Blood Pressure Pulse Oximetry Oxygen Delivery Method Oxygen Delivery Flow Rate Fraction of Inspired Oxygen 11/14/22 22:00 11/14/22 22:30 11/14/22 23:00 Temperature Pulse Rate 111 H 118 H 116 H Respiratory Rate 23 20 16 Blood Pressure Pulse Oximetry Oxygen Delivery Method Oxygen Delivery Flow Rate Fraction of Inspired Oxygen 11/14/22 23:19 11/14/22 23:20 11/15/22 00:10 Temperature 97.2 F L Pulse Rate 115 H 108 H 117 H Respiratory Rate 27 H 17 Blood Pressure 82/61 L Pulse Oximetry 84 L 86 L Oxygen Delivery Method Oxygen Delivery Flow Rate Fraction of Inspired Oxygen 11/15/22 00:13 11/15/22 01:17 11/15/22 02:20 Temperature Pulse Rate 100 H 110 H Respiratory Rate Blood Pressure Pulse Oximetry 90 L 88 L Oxygen Delivery Method Oxygen Delivery Flow Rate Fraction of Inspired Oxygen 11/15/22 03:05 11/15/22 03:05 11/15/22 04:07 Temperature Pulse Rate 118 H 119 H Respiratory Rate 17 Blood Pressure Pulse Oximetry 88 L 91 L Oxygen Delivery Method Oxygen Delivery Flow Rate Fraction of Inspired Oxygen 11/15/22 04:31 11/15/22 06:14 Temperature Pulse Rate 121 H Respiratory Rate Blood Pressure Pulse Oximetry 93 L Oxygen Delivery Method Nonrebreather Oxygen Delivery Flow Rate Fraction of Inspired Oxygen 100 Documenting provider has reviewed patient's vital signs: yes Other: Laying in bed. Weaker than last seen. HENMT Other: Wearing NRB Respiratory Other: Diminished & muted breath sounds, dullness to percussion on the left. Cardio Other: Irregularly irregular GI Palpation: soft Extremity Other: 1-2+ BLE edema Neuro Other: Hard of hearing Results Laboratory Findings Abnormal lab findings: Abnormal Labs 11/13/22 11/13/22 11/14/22 16:30 23:50 00:00 WBC 20.8 H 18.3 H RBC 3.07 L 2.71 L Hgb 9.7 L 8.7 L Hct 27.4 L 24.1 L MCHC 35.4 H 36.1 H RDW 18.7 H 18.9 H Neut % (Auto) 80.6 H Lymph % (Auto) 5.0 L Eos % (Auto) 0.1 L Baso % (Auto) 0.1 L Neut # (Auto) 14.8 H Lymph # (Auto) 0.9 L [place] # (Auto) 1.1 H Abs Immat Gran (auto) 1.47 H Band Neutrophils % Lymphocytes % (Manual) 5.0 L Eosinophils % (Manual) 0.0 L Basophils % (Manual) 0.0 L Imm/Tot Granulo (auto) 8.0 H Neutrophils # (Manual) 18.30 H Band Neutrophils # 0.6 H Lymphocytes # (Manual) 1.04 L Monocytes # (Manual) 0.83 H Sodium 120 L* 122 L* Potassium 5.2 H Chloride 86 L 89 L BUN 91.0 H* 90.0 H* Creatinine 2.09 H 2.01 H Est GFR ( Amer) 37 L 39 L Est GFR (Non-Af Amer) 30 L 32 L Lactate Calcium 7.4 L 7.5 L Phosphorus Magnesium ALT 15 L Myoglobin NT-Pro-B Natriuret Pep 6738.0 H* Total Protein 5.8 L Albumin 2.3 L Crossmatch 11/14/22 11/14/22 11/14/22 04:05 07:45 09:03 WBC 19.6 H RBC 3.18 L Hgb 10.0 L Hct 29.5 L MCHC RDW 19.3 H Neut % (Auto) Lymph % (Auto) Eos % (Auto) Baso % (Auto) Neut # (Auto) Lymph # (Auto) [place] # (Auto) Abs Immat Gran (auto) Band Neutrophils % 7.0 H Lymphocytes % (Manual) 5.0 L Eosinophils % (Manual) 0.0 L Basophils % (Manual) 0.0 L Imm/Tot Granulo (auto) Neutrophils # (Manual) 16.85 H Band Neutrophils # 1.4 H Lymphocytes # (Manual) 0.98 L Monocytes # (Manual) Sodium 124 L* 126 L 126 L Potassium Chloride 90 L BUN 85.0 H* Creatinine 1.79 H Est GFR ( Amer) 44 L Est GFR (Non-Af Amer) 36 L Lactate 2.3 H* Calcium 7.5 L Phosphorus 5.3 H Magnesium 2.5 H ALT Myoglobin 253 H* NT-Pro-B Natriuret Pep 5265.0 H* Total Protein 6.0 L Albumin 2.4 L Crossmatch See Detail 11/14/22 12:42 WBC RBC Hgb Hct MCHC RDW Neut % (Auto) Lymph % (Auto) Eos % (Auto) Baso % (Auto) Neut # (Auto) Lymph # (Auto) [place] # (Auto) Abs Immat Gran (auto) Band Neutrophils % Lymphocytes % (Manual) Eosinophils % (Manual) Basophils % (Manual) Imm/Tot Granulo (auto) Neutrophils # (Manual) Band Neutrophils # Lymphocytes # (Manual) Monocytes # (Manual) Sodium 124 L* Potassium Chloride BUN Creatinine Est GFR ( Amer) Est GFR (Non-Af Amer) Lactate Calcium Phosphorus Magnesium ALT Myoglobin NT-Pro-B Natriuret Pep Total Protein Albumin Crossmatch Assessment and Plan Assessment and Plan (1) Pleural effusion, bilateral: Assessment and Plan: Left pleural effusion, s/p thoracentesis 11/03/2022 with 1600mL out, increasing in size. Combination of CHF + malignant. Reaccumulating in <2 weeks. Palliative options include Pleurx cathiter, pleuridesis, recurrent thoracenteses, or Hospice. The former 3 all have potential adverse effects. Patient is to be enrolled in Hospice I found out this AM. Comfort care appears to be the best option for this patient. No plans for thoracentesis at this time unless he ends up not being discharged (and even if it is done, the fluid will return as the underlying problem is not being cured). 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 Patient enrolling in Hospice.
--- NOTE | 2022-11-15 07:39 | P.DS_ITS ---
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: (12) Moderate protein malnutrition: (13) Iron deficiency anemia: (14) Hypocalcemia: (15) Hypoxemia: (16) Atrial fibrillation with RVR: (17) Lymphoma: Plan Atrial fibrillation with rapid ventricular response, acute hypoxic respiratory failure, hypotension, leukocytosis, hyponatremia, hyperkalemia, acute kidney injury with elevated BNP secondary to sepsis severe sepsis Severe sepsis Pleural effusion recurrent secondary to exudative process with his Metastatic melanoma Atrial fibrillation with rapid ventricular response Anemia Hyponatremia History of hypomagnesemia Hyperkalemia on admission Severe protein calorie malnutrition DS: Summary Hospital Course Hospital Course: Patient admitted to the emergency room with increasing shortness of breath. Found to have atrial fibrillation with rapid ventricular response, acute kidney injury, leukocytosis, recurrence of his pleural effusion and likely infectious etiology as he has leukocytosis as well, cannot see with underlying the effusion, severe sepsis. Difficulty with blood pressure control. Placed on IV antibiotics and try to improve rate control with Lanoxin, patient continued to deteriorate throughout the day. Discussion took place with the family and with his metastatic melanoma and no further treatment options available and of the family and the patient Elected to have him go home with hospice, hopefully this can be arranged later today. Prescription sent to pharmacy, I can continue to follow with hospice if that is everybody's preference. Condition terminal Status at Discharge Cognitive/behavioral status at discharge: Alert and talkative Overall status at discharge: patient is not back to baseline Time Spent with Patient Time attestation: Total time spent providing and/or coordinating discharge services: Exam Constitutional Vital Signs - 24 hr 11/14/22 09:27 11/14/22 10:08 11/14/22 10:04 Temperature Pulse Rate 112 H 116 H Respiratory Rate Blood Pressure Pulse Oximetry 94 L 93 L Oxygen Delivery Method BIPAP Oxygen Delivery Flow Rate Fraction of Inspired Oxygen 100 11/14/22 10:50 11/14/22 10:00 11/14/22 11:50 Temperature 98.1 F Pulse Rate 107 H 112 H 104 H Respiratory Rate 24 Blood Pressure 80/40 L Pulse Oximetry Oxygen Delivery Method Oxygen Delivery Flow Rate Fraction of Inspired Oxygen 11/14/22 08:01 11/14/22 08:32 11/14/22 09:00 Temperature Pulse Rate 78 124 H 120 H Respiratory Rate 17 18 Blood Pressure 82/52 L 113/79 92/67 Pulse Oximetry 85 L 87 L Oxygen Delivery Method Oxygen Delivery Flow Rate Fraction of Inspired Oxygen 11/14/22 09:30 11/14/22 10:00 11/14/22 10:31 Temperature Pulse Rate 123 H 100 H 114 H Respiratory Rate 20 17 21 Blood Pressure 80/59 L 99/62 80/50 L Pulse Oximetry 89 L 93 L Oxygen Delivery Method Oxygen Delivery Flow Rate Fraction of Inspired Oxygen 11/14/22 11:00 11/14/22 11:30 11/14/22 11:31 Temperature Pulse Rate 104 H 113 H 103 H Respiratory Rate 21 19 19 Blood Pressure 92/51 L 69/60 L 82/58 L Pulse Oximetry 88 L 87 L 88 L Oxygen Delivery Method Oxygen Delivery Flow Rate Fraction of Inspired Oxygen 11/14/22 11:56 11/14/22 11:05 11/14/22 12:01 Temperature 97.8 F 97.8 F 98.0 F Pulse Rate 110 H 84 Respiratory Rate 18 18 Blood Pressure 82/58 L 84/54 L Pulse Oximetry 91 L 92 L Oxygen Delivery Method BIPAP BIPAP Oxygen Delivery Flow Rate 80 Fraction of Inspired Oxygen 11/14/22 12:05 11/14/22 10:00 11/14/22 12:00 Temperature 98.0 F Pulse Rate 86 94 H 86 Respiratory Rate 16 Blood Pressure 95/61 Pulse Oximetry 94 L Oxygen Delivery Method BIPAP Oxygen Delivery Flow Rate Fraction of Inspired Oxygen 11/14/22 14:06 11/14/22 14:00 11/14/22 15:56 Temperature 97.6 F Pulse Rate 89 110 H 113 H Respiratory Rate 20 Blood Pressure 109/70 Pulse Oximetry Oxygen Delivery Method Oxygen Delivery Flow Rate Fraction of Inspired Oxygen 11/14/22 11:31 11/14/22 12:00 11/14/22 12:30 Temperature Pulse Rate 109 H 105 H 109 H Respiratory Rate 15 21 18 Blood Pressure 82/58 L 84/54 L 91/56 L Pulse Oximetry 87 L 87 L 85 L Oxygen Delivery Method Oxygen Delivery Flow Rate Fraction of Inspired Oxygen 11/14/22 13:00 11/14/22 13:30 11/14/22 14:00 Temperature Pulse Rate 110 H 110 H 117 H Respiratory Rate 21 24 21 Blood Pressure 95/61 93/64 109/70 Pulse Oximetry 87 L 91 L Oxygen Delivery Method Oxygen Delivery Flow Rate Fraction of Inspired Oxygen 11/14/22 14:32 11/14/22 15:00 11/14/22 15:10 Temperature Pulse Rate 114 H 113 H 123 H Respiratory Rate 25 H 22 24 Blood Pressure 96/61 Pulse Oximetry Oxygen Delivery Method Oxygen Delivery Flow Rate Fraction of Inspired Oxygen 11/14/22 15:10 11/14/22 15:30 11/14/22 16:28 Temperature Pulse Rate 105 H 116 H Respiratory Rate 19 17 Blood Pressure 84/56 L Pulse Oximetry 89 L Oxygen Delivery Method Nonrebreather Oxygen Delivery Flow Rate 15 Fraction of Inspired Oxygen 11/14/22 17:39 11/14/22 19:33 11/14/22 15:30 Temperature Pulse Rate 132 H 115 H 98 H Respiratory Rate 18 Blood Pressure 84/56 L Pulse Oximetry Oxygen Delivery Method Oxygen Delivery Flow Rate Fraction of Inspired Oxygen 11/14/22 16:00 11/14/22 16:30 11/14/22 17:00 Temperature Pulse Rate 117 H 118 H 111 H Respiratory Rate 22 21 21 Blood Pressure 99/60 85/65 L 70/56 L Pulse Oximetry 88 L 90 L Oxygen Delivery Method Oxygen Delivery Flow Rate Fraction of Inspired Oxygen 11/14/22 17:32 11/14/22 18:00 11/14/22 18:30 Temperature Pulse Rate 122 H 120 H 134 H Respiratory Rate 21 19 25 H Blood Pressure 116/81 H 90/75 102/68 Pulse Oximetry Oxygen Delivery Method Oxygen Delivery Flow Rate Fraction of Inspired Oxygen 11/14/22 19:00 11/14/22 19:10 11/14/22 19:33 Temperature 97.5 F L Pulse Rate 128 H 119 H 120 H Respiratory Rate 27 H 20 17 Blood Pressure 95/63 96/63 Pulse Oximetry Oxygen Delivery Method Oxygen Delivery Flow Rate Fraction of Inspired Oxygen 11/14/22 19:39 11/14/22 21:09 11/14/22 22:44 Temperature Pulse Rate 124 H 127 H Respiratory Rate Blood Pressure Pulse Oximetry 88 L Oxygen Delivery Method Nonrebreather Oxygen Delivery Flow Rate 15 Fraction of Inspired Oxygen 11/14/22 23:10 11/14/22 20:00 11/14/22 20:30 Temperature Pulse Rate 111 H 117 H Respiratory Rate 17 21 16 Blood Pressure Pulse Oximetry Oxygen Delivery Method Oxygen Delivery Flow Rate Fraction of Inspired Oxygen 11/14/22 21:00 11/14/22 21:30 11/14/22 22:00 Temperature Pulse Rate 108 H 133 H 111 H Respiratory Rate 24 17 23 Blood Pressure Pulse Oximetry Oxygen Delivery Method Oxygen Delivery Flow Rate Fraction of Inspired Oxygen 11/14/22 22:30 11/14/22 23:00 11/14/22 23:19 Temperature Pulse Rate 118 H 116 H 115 H Respiratory Rate 20 16 27 H Blood Pressure Pulse Oximetry 84 L Oxygen Delivery Method Oxygen Delivery Flow Rate Fraction of Inspired Oxygen 11/14/22 23:20 11/15/22 00:10 11/15/22 00:13 Temperature 97.2 F L Pulse Rate 108 H 117 H 100 H Respiratory Rate 17 Blood Pressure 82/61 L Pulse Oximetry 86 L Oxygen Delivery Method Oxygen Delivery Flow Rate Fraction of Inspired Oxygen 11/15/22 01:17 11/15/22 02:20 11/15/22 03:05 Temperature Pulse Rate 110 H Respiratory Rate 17 Blood Pressure Pulse Oximetry 90 L 88 L Oxygen Delivery Method Oxygen Delivery Flow Rate Fraction of Inspired Oxygen 11/15/22 03:05 11/15/22 04:07 11/15/22 04:31 Temperature Pulse Rate 118 H 119 H Respiratory Rate Blood Pressure Pulse Oximetry 88 L 91 L 93 L Oxygen Delivery Method Nonrebreather Oxygen Delivery Flow Rate Fraction of Inspired Oxygen 100 11/15/22 06:14 Temperature Pulse Rate 121 H Respiratory Rate Blood Pressure Pulse Oximetry Oxygen Delivery Method Oxygen Delivery Flow Rate Fraction of Inspired Oxygen Documenting provider has reviewed patient's vital signs: yes Common normals: apparent distress (Mild respiratory distress) Exam limitations: no altered mental status General appearance: cooperative Chest Common normals: inspection of chest normal Respiratory Common normals: abnormal respiratory effort and use of accessory muscles Auscultation: rhonchi and diminished lung sounds Cardio Rate: tachycardic Rhythm: abnormal rhythm GI Common normals: Normal to inspection, nondistended, normoactive bowel sounds present Extremity Common normals: abnormal to inspection (2+ edema) DS: Data Data Completed and Pending Labs on day of discharge: Labs from last 24 hours 11/14/22 11/14/22 11/14/22 12:42 09:03 07:45 WBC 19.6 H RBC 3.18 L Hgb 10.0 L Hct 29.5 L MCV 92.8 MCH 31.4 MCHC 33.9 RDW 19.3 H Plt Count 292 MPV 9.6 Seg Neuts % (Manual) 86.0 Band Neutrophils % 7.0 H Lymphocytes % (Manual) 5.0 L Monocytes % (Manual) 2.0 Eosinophils % (Manual) 0.0 L Basophils % (Manual) 0.0 L Neutrophils # (Manual) 16.85 H Band Neutrophils # 1.4 H Lymphocytes # (Manual) 0.98 L Monocytes # (Manual) 0.39 Eosinophils # (Manual) 0.00 Basophils # (Manual) 0.00 Sodium 124 L* 126 L 126 L Potassium 4.8 Chloride 90 L Carbon Dioxide 24.8 Anion Gap 16.0 BUN 85.0 H* Creatinine 1.79 H Est GFR ( Amer) 44 L Est GFR (Non-Af Amer) 36 L BUN/Creatinine Ratio 47.5 Glucose 102 Lactate 2.3 H* Calcium 7.5 L Phosphorus 5.3 H Magnesium 2.5 H Total Bilirubin 1.0 AST 24 ALT 16 Alkaline Phosphatase 73 Total Creatine Kinase 43 CK-MB (CK-2) 0.95 Myoglobin 253 H* Troponin I High Sens 25.7 NT-Pro-B Natriuret Pep 5265.0 H* Total Protein 6.0 L Albumin 2.4 L Globulin 3.6 Albumin/Globulin Ratio 0.7 SARS-CoV-2 RNA (ELIZABETH) Blood Type O Positive Antibody Screen Negative Crossmatch See Detail 11/13/22 00:05 WBC RBC Hgb Hct MCV MCH MCHC RDW Plt Count MPV Seg Neuts % (Manual) Band Neutrophils % Lymphocytes % (Manual) Monocytes % (Manual) Eosinophils % (Manual) Basophils % (Manual) Neutrophils # (Manual) Band Neutrophils # Lymphocytes # (Manual) Monocytes # (Manual) Eosinophils # (Manual) Basophils # (Manual) Sodium Potassium Chloride Carbon Dioxide Anion Gap BUN Creatinine Est GFR ( Amer) Est GFR (Non-Af Amer) BUN/Creatinine Ratio Glucose Lactate Calcium Phosphorus Magnesium Total Bilirubin AST ALT Alkaline Phosphatase Total Creatine Kinase CK-MB (CK-2) Myoglobin Troponin I High Sens NT-Pro-B Natriuret Pep Total Protein Albumin Globulin Albumin/Globulin Ratio SARS-CoV-2 RNA (ELIZABETH) Not detected Blood Type Antibody Screen Crossmatch Discharge Plan Discharge Disposition: Hospice - Home Condition: Fair Discharge Medications: New morphine 20 mg/5 mL (4 mg/mL) solution 4 mg PO Q2H MDD 48 PRN (Reason: pain) Qty: 100 0RF Rx Instructions: Hospice patient lorazepam 2 mg/mL concentrate 1 mg PO Q4H MDD 6 mg PRN (Reason: anxiety) Qty: 30 0RF Rx Instructions: Hospice patient Discontinued Eliquis 2.5 mg tablet 2.5 mg PO Q12H ferrous sulfate [FeroSul] 325 mg (65 mg iron) tablet 325 mg PO BID folic acid 1 mg tablet 1 mg PO DAILY Rx Instructions: 1 mg orally 6 days per week. does not takeon day of methotrexate; hydralazine 50 mg tablet 50 mg PO BEDTIME lisinopril 40 mg tablet 40 mg PO .evening methotrexate sodium 2.5 mg tablet 10 mg PO .tuesday multivitamin [Daily Multi-Vitamin] Tablet 1 tab PO QAM aspirin [Ecotrin Low Strength] 81 mg tablet,delayed release (DR/EC) 81 mg PO DAILY carvedilol 6.25 mg tablet 6.25 mg PO BID Rx Instructions: must administer with a meal/food furosemide 40 mg tablet 40 mg PO QAM lisinopril 20 mg tablet 20 mg PO DAILY potassium chloride [K-Tab] 20 mEq tablet extended release 20 meq PO DAILY spironolactone [Aldactone] 25 mg tablet 25 mg PO QAM Forms: Portal Instructions
--- NOTE | 2022-11-15 10:13 | SWNOTE1 ---
SW called and spoke with [facility] to see if they are coming in to see pt before he is discharged. They stated they spoke with yesterday and she will be calling once pt gets home so they can come and do assessment. BIANKA spoke with pt and in room. Pt's has been his caregiver for some time and she was also a caregiver to her mother, mother in law, and her own daughter as well. Pt has hospital bed, wheelchair, and oxygen at home. SW offered to have hospice come here and do assessment prior to him leaving, but pt and would like to go home and have hospice come to the home to complete assessment. SW did explain there is a chance he will not qualify, stated she could care for him as she has been doing. Pt's also voiced family can help as well. SW asked if they would like SW to set up ambulance transport home? Pt and decided pt can get into van and they will be able to get him into wheelchair at home and go up the ramp to get him in. Pt's son will be coming to help as well with discharge/transport home. SW notified nursing, and will call [facility] as well.
--- NOTE | 2022-11-15 10:26 | SWNOTE1 ---
SW spoke [facility] and notified them pt would be going home within the next hour.
== END 2022-11-15 11:39 | disposition hospice, home (50) | DRG 871 ==
LOC: ER 19:35 → ICU 21:42
PROVIDERS: Emergency Medicine; Admitting Provider Internal Medicine; Emergency Provider Emergency Medicine; PCP Family Medicine; Visit Provider Internal Medicine
DX: A41.9 Sepsis, unspecified organism (principal); E43 Unspecified severe protein-calorie malnutrition; J18.9 Pneumonia, unspecified organism; J96.01 Acute respiratory failure with hypoxia; N17.9 Acute kidney failure, unspecified; E87.1 Hypo-osmolality and hyponatremia; C78.00 Secondary malignant neoplasm of unspecified lung; C85.90 Non-Hodgkin lymphoma, unspecified, unspecified site; J91.8 Pleural effusion in other conditions classified elsewhere; R65.20 Severe sepsis without septic shock; I48.91 Unspecified atrial fibrillation; C43.9 Malignant melanoma of skin, unspecified; I11.0 Hypertensive heart disease with heart failure; I50.9 Heart failure, unspecified; D50.9 Iron deficiency anemia, unspecified; E83.51 Hypocalcemia; Z87.891 Personal history of nicotine dependence; L40.9 Psoriasis, unspecified; E87.5 Hyperkalemia; H91.90 Unspecified hearing loss, unspecified ear; E87.70 Fluid overload, unspecified; Z66 Do not resuscitate; Z51.5 Encounter for palliative care; Z79.01 Long term (current) use of anticoagulants; Z79.82 Long term (current) use of aspirin; Z79.631 Long term (current) use of antimetabolite agent; Z79.899 Other long term (current) drug therapy; Z88.2 Allergy status to sulfonamides; Z98.890 Other specified postprocedural states; Z82.3 Family history of stroke; Z20.822 Contact with and (suspected) exposure to COVID-19; Z68.24 Body mass index [BMI] 24.0-24.9, adult
CPT/HCPCS: 36415; 36430; 71045; 80048; 80053; 81001; 82550; 82553; 83605; 83735; 83874; 83880; 84100; 84295; 84484; 85007; 85025; 85027; 86850; 87040; 87635; 87811; 93005; 94660; 94761; 96365; 96366; 96367; 96368; 96375; 96376; 99285; J0456; P9016; Q3014